=== PATIENT | female | born 1970 | race Native Hawaiian/Other Pacific Islander ===

== ENCOUNTER 2023-01-04 11:19 | Outpatient (CLI) | payer OTHER, SELFPAY ==
--- NOTE | 2023-01-04 11:30 | CRLHL7_ITS ---
For Patients: As a result of the Cures Act, medical imaging exams and procedure reports are released immediately into your electronic medical record. You may view this report before your referring provider. If you have questions, please contact your health care provider. BILATERAL SCREENING MAMMOGRAM WITH COMPUTER-AIDED DETECTION AND TOMOSYNTHESIS TECHNIQUE: CC and MLO views were obtained. These mammographic images have been obtained using full-field digital technique. These mammographic images were interpreted with the benefit of computer-aided detection. Breast Tomosynthesis was used in this interpretation. COMPARISON FILM: 10/11/21, 08/25/20, 09/15/18. FINDINGS: There are scattered areas of fibroglandular density IMPRESSION: There is no radiographic evidence for malignancy. ASSESSMENT: BI-RADS Category 1: Negative RECOMMENDATION: Routine screening mammogram in 1 year. A lay language report of this examination will be provided to the patient. Flavia Barnett M.D. Diagnostic/Breast Radiologist [email or web address] Transcribed: 2:20 p.mLeo phelps/Dictated by: Flavia Barnett MD @ 01/07/2023 8:24:00 AM (Electronically Signed)
== END 2023-01-04 11:20 | disposition home or self-care (01) ==
LOC: MAMMO 11:22
PROVIDERS: PCP Emergency Medicine; Visit Provider Emergency Medicine
DX: Z12.31 Encounter for screening mammogram for malignant neoplasm of breast (principal)
CPT/HCPCS: 77063; 77067

== ENCOUNTER 2024-07-17 10:25 | Outpatient (CLI) | payer OTHER, SELFPAY ==
--- NOTE | 2024-07-17 | CRLHL7_ITS ---
For Patients: As a result of the Century Cures Act, medical imaging exams and procedure reports are released immediately into your electronic medical record. You may view this report before your referring provider. If you have questions, please contact your health care provider. BILATERAL DIGITAL SCREENING MAMMOGRAM WITH COMPUTER-AIDED DETECTION AND TOMOSYNTHESIS CLINICAL HISTORY: Routine screening exam. COMPARISON: 01/04/23, 10/11/21, 08/25/20. TECHNIQUE: Digital mammogram in CC and MLO projections including computer-aided detection (CAD). Tomosynthesis was used in this interpretation. BREAST COMPOSITION: There are scattered areas of fibroglandular density. FINDINGS: RIGHT Breast: Focal asymmetric density within the lateral breast 3 cm from the nipple CC view only. LEFT Breast: No suspicious findings. IMPRESSION: RIGHT breast asymmetry/mass. RECOMMENDATIONS: Additional mammographic views of the RIGHT breast including 3D spot compression CC and 3D true lateral. RIGHT breast ultrasound may also be required. BI-RADS Category 0: Incomplete: Need Additional Imaging Evaluation [facility] will contact the patient for follow-up. A lay language report of this examination will be provided to the patient. Dictated by Trung Austin MD @ 07/17/2024 11:56:55 AM jj/Dictated by: Trung Austin MD @ 07/17/2024 11:56:00 AM (Electronically Signed)
--- OUTSIDE RECORDS SUMMARY | 2024-07-17 10:32 | XMS_ITS | Continuity of Care Document ---
Author Name [facility] Organization [facility] Care Team Providers Care Database Marketing Specialist Name Role Phone [facility] Unavailable Unavailable Problems Combined list of problems from Department of Defense and Veterans Affairs facilities. It does not include entries that were removed or entered in error. Problem Status Onset Date Problem Type Date of Resolution Comments Source Exposure to potentially hazardous substance (SCT [id number]) Active 11/21/19 24 Condition Nov 21, 2023 Entered By: WENDY MACKEY Comment: [facility]ZEQUIEL Documentation Initiative [facility] Shingles Inactive 09/16/19 12 Condition 06/08/2019 Jun 08, 2019 Entered By: HAILE HALE Comment: history of shingles of R face. No occular involvement, but gets annual eye exam due to proximity. Vaccine at 48 y/o. [facility] Bunion Active Condition [facility] Deviated nasal septum Active Condition [facility] Shingles Active Condition Mar 15 Entered By: HAILE HALE Comment: history of prior shingles [facility] Snoring Active Condition [facility] visit for: administrative purpose Inactive Condition [facility] lumbar radiculopathy Active Condition [facility] Physical Examination Inactive Condition [facility] Need For Vaccination Against Influenza Inactive Condition [facility] normal Inactive Condition pt has EDC of August 30, 2007. [facility] visit for: services physical Active Condition DoD Diagnosis: ICD-10-CM J34.2 Deviated nasal septum Active Diagnosis [facility] Diagnosis: ICD-10-CM Z71.89 Other specified counseling Active Diagnosis [facility] Diagnosis: ICD-10-CM Z01.818 Encounter for other preprocedural examination Active Diagnosis [facility] Diagnosis: ICD-10-CM Z13.6 Encounter for screening for cardiovascular disorders Active Diagnosis [facility] Diagnosis: ICD-10-CM E66.3 Overweight Active Diagnosis [facility] Diagnosis: ICD-10-CM R06.83 Snoring Active Diagnosis [facility] Allergies, Adverse Reactions, Alerts Combined list of allergies from Department of Defense and Veterans Affairs facilities. It does not include entries that were removed or entered in error. Substance Category Reaction Severity Reaction type Status Date Reported Comments Source No Known Allergies Drug allergy (disorder) active 11/09/2008 [facility] Immunizations Combined list of available immunizations from the Department of Defense and Veterans Affairs facilities. Immunization Series Date Given Administered By Site Reaction Lot Number CVX Code Drug Laundry Operator Status Comments Source INFLUENZA, INJECTABLE, QUADRIVALENT, PRESERVATIVE FREE 2022 150 complet ed [facility] INFLUENZA, UNSPECIFIED FORMULATION 2022 88 complet ed [facility] INFLUENZA, INJECTABLE, QUADRIVALENT, PRESERVATIVE FREE 2021 150 complet ed [facility] COVID-19 ([employer]), MRNA, LNP-S, PF, 30 MCG/0.3 ML DOSE, AUNG-SUCROSE (AGES 12+ YEARS) 4 2021 217 complet ed PFR; [id number]; 2 [facility] TDAP 2021 115 complet ed [facility] COVID-19 ([employer]), MRNA, LNP-S, PF, 30 MCG/0.3 ML DOSE 3 2020 208 complet ed PFR; [id number]; 2 [facility] INFLUENZA, RECOMBINANT, QUADRIVALENT, INJECTABLE, PRESERVATIVE FREE 2020 185 complet ed [facility] influenza, recombinant, quadrivalent, injectable, preservative free 2020 MICHAELA, () Not Given influenza , recombina nt, quadrival ent,injec table, preservat lisandra free [facility] COVID-19 ([employer]), MRNA, LNP-S, PF, 30 MCG/0.3 ML DOSE 2 2020 208 complet ed PFR; [id number]; 1 [facility] COVID-19 ([employer]), MRNA, LNP-S, PF, 30 MCG/0.3 ML DOSE 1 2020 208 complet ed PFR; [id number]; 1 [facility] INFLUENZA, INJECTABLE, QUADRIVALENT, PRESERVATIVE FREE 2019 150 complet ed [facility] INFLUENZA, INJECTABLE, QUADRIVALENT, PRESERVATIVE FREE 2018 150 complet [facility] INFLUENZA, HIGH DOSE SEASONAL 2018 135 complet [facility] ZOSTER RECOMBINANT 2 2018 187 complet [facility] ZOSTER RECOMBINANT 1 2018 187 complet [facility] INFLUENZA, INJECTABLE, QUADRIVALENT 2017 158 complet [facility] influenza virus vaccine, unspecified formulation 1 2016 Unknown, Provider 88 Transcribed (TRS) complet ed influenza virus vaccine, unspecifi ed formulati on [facility] Influenza, seasonal, injectable 1 2015 141 Transcribed (TRS) complet Influenza , seasonal, injectabl e DoD INFLUENZA, SEASONAL, INJECTABLE, PRESERVATIVE FREE 2015 140 complet [facility] tetanus toxoid, reduced diphtheria toxoid, and acellular pertu is vaccine, adsorbed 3 2015 [id number] [employer] (SKB) complet ed tetanus toxoid, reduced diphtheri a toxoid, and acellular pertussis vaccine, adsorbed [facility] INFLUENZA, SEASONAL, INJECTABLE, PRESERVATIVE FREE 2014 140 complet [facility] influenza virus vaccine, unspecified formulation 1 2014 88 Transcribed (TRS) complet ed influenza virus vaccine, unspecifi ed formulati on [facility] hepatitis B vaccine, adult dosage 3 2014 [id number] [employer] ([place]) complet hepatitis B vaccine, adult dosage DoD hepatitis B vaccine, adult dosage 2 2013 [id number] 43 [employer] ([facility]) complet ed hepatitis B vaccine, adult dosage [facility] influenza virus vaccine, unspecified formulation 1 2013 88 Transcribed (TRS) complet ed influenza virus vaccine, unspecifi ed formulati on [facility] hepatitis B vaccine, adult dosage 0 2013 [id number] 43 [employer] (SK[place]) complet ed hepatitis B vaccine, adult dosage DoD influenza virus vaccine, live, attenuated, for intranasal use 1 2012 111 Transcribed (TRS) complet ed influenza virus vaccine, live, attenuate d, for intranasa l use [facility] influenza virus vaccine, live, attenuated, for intranasal use 1 2011 111 Transcribed (TRS) complet ed influenza virus vaccine, live, attenuate d, for intranasa l use [facility] INFLUENZA, SEASONAL, INJECTABLE 2010 141 complet ed [facility] Influenza, seasonal, injectable 0 2010 141 Other (OTH) complet ed Influenza , seasonal, injectabl e DoD influenza virus vaccine, split virus (incl. purified surface antigen)-reti red CODE 1 2009 Unknown, Provider [id number] [facility] [employer] (CS) complet ed influenza virus vaccine, split virus (incl. purified surface antigen)- retired CODE DoD Novel influenza-H1N 1-09, injectable 1 2008 SOREN MCINTOSH [id number] 127 [employer] [place]. (NOV) complet ed Novel influenza -N2H2-01, injectabl e DoD Novel influenza-H1N 1-09, all formulations 1 2008 [id number] 1A 128 [employer] [place]. (NOV) complet ed Novel influenza -W4W3-57, all formulati ons DoD tuberculin skin test; purified protein derivative solution, intradermal 0 2008 96 Transcribed (TRS) complet ed tuberculi n skin test; purified protein derivativ e solution, intraderm al DoD influenza virus vaccine, live, attenuated, for intranasal use 1 2008 LILIANE CARMEN [id number] 111 [employer] (MED) complet ed influenza virus vaccine, live, attenuate d, for intranasa l use DoD influenza virus vaccine, live, attenuated, for intranasal use 1 2008 UNK 111 [employer] (MED) complet ed influenza virus vaccine, live, attenuate d, for intranasa l use DoD influenza virus vaccine, split virus (incl. purified surface antigen)-reti red CODE 1 2007 UNK 15 Unknown (UNK) comple t ed influenza virus vaccine, split virus (incl. purified surface antigen)- retired CODE DoD influenza virus vaccine, unspecified formulation 1 2007 SOREN MCINTOSH [id number] [facility] (SKB) complet ed influenza virus vaccine, unspecifi ed formulati on DoD influenza virus vaccine, live, attenuated, for intranasal use 1 2007 SOREN MCINTOSH [id number] 111 [employer] (MED) complet ed influenza virus vaccine, live, attenuate d, for intranasa l use DoD influenza virus vaccine, split virus (incl. purified surface antigen)-reti red CODE 2 2006 15 Transcribed (TRS) complet ed influenza virus vaccine, split virus (incl. purified surface antigen)- retired CODE DoD influenza virus vaccine, unspecified formulation 1 2005 UNK 88 [employer]. (MED) complet ed influenza virus vaccine, unspecifi ed formulati on DoD tetanus toxoid, reduced diphtheria toxoid, and acellular pertu is vaccine, adsorbed 1 2005 UNK 115 Sanofi Pasteur ([facility]) complet ed tetanus toxoid, reduced diphtheri a toxoid, and acellular pertussis vaccine, adsorbed DoD influenza virus vaccine, split virus (incl. purified surface antigen)-reti red CODE 1 2002 [id number] 15 [employer] ([employer]) complet ed influenza virus vaccine, split virus (incl. purified surface antigen)- retired CODE DoD influenza virus vaccine, whole virus 1 2002 Unknown, Provider [id number] [employer] (PWJ) complet ed influenza virus vaccine, whole virus DoD tuberculin skin test; purified protein derivative solution, intradermal 1 2001 Unknown, Provider [id number] [facility] (CON) complet ed tuberculi n skin test; purified protein derivativ e solution, intraderm al DoD influenza virus vaccine, whole virus 0 2001 [id number] Sanofi Pasteur ([facility]) complet ed influenza virus vaccine, whole virus DoD measles, mumps and rubella virus vaccine 0 2001 03 () complet ed measles, mumps and rubella virus vaccine DoD tuberculin skin test; purified protein derivative solution, intradermal 1 2000 Unknown, Provider 96 () complet ed tuberculi n skin test; purified protein derivativ e solution, intraderm al DoD hepatitis A vaccine, adult dosage 2 1996 52 () complet ed hepatitis A vaccine, adult dosage DoD hepatitis A vaccine, adult dosage 1 1996 UNK 52 Unknown (UNK) comple t ed hepatitis A vaccine, adult dosage DoD tetanus and diphtheria toxoids, adsorbed, preservative free, for adult use (2 Lf of tetanus toxoid and 2 Lf of diphtheria toxoid) 0 1995 09 () complet ed tetanus and diphtheri a toxoids, adsorbed, preservat lisandra free, for adult use (2 Lf of tetanus toxoid and 2 Lf of diphtheri a toxoid) DoD poliovirus vaccine, inactivated 0 1986 10 () complet ed polioviru s vaccine, inactivat ed DoD Results Combined list of recent chemistry, hematology and other laboratory results from Department of Defense and Veterans Affairs, ranging from 15 months to all on record, depending upon the facility. Order Name Results Value Reference Range Date Interpretation Specimen Comments Source LIVER FUNCTION TESTS BILIRUBIN.T OTAL [MASS/VOLUM E] IN SERUM OR PLASMA 0.5 mg/dL 0.2 - 1.2 02/02 Specimen Type: PLASMA No comment entered. Ordering Provider: BRANDEN ARMENTA Report Released Date/Time: January 28, 2023 03:57 PM Reporting Lab: [facility] [address] Performing Lab: [facility] [address] [facility] LIVER FUNCTION TESTS ALKALINE PHOSPHATASE [ENZYMATIC ACTIVITY/VO LUME] IN SERUM OR PLASMA 117 U/L 40 - 150 02/02 Specimen Type: PLASMA No comment entered. Ordering Provider: BRANDEN ARMENTA Report Released Date/Time: January 28, 2023 03:57 PM Reporting Lab: [facility] [address] Performing Lab: [facility] [address] [facility] LIVER FUNCTION TESTS ALANINE AMINOTRANSF ERASE [ENZYMATIC ACTIVITY/VO LUME] IN SERUM OR PLASMA 23 U/L <55 - 55 02/02 Specimen Type: PLASMA No comment entered. Ordering Provider: BRANDEN ARMENTA Report Released Date/Time: January 28, 2023 03:57 PM Reporting Lab: [facility] [address] Performing Lab: [facility] [address] [facility] LIVER FUNCTION TESTS ASPARTATE AMINOTRANSF ERASE [ENZYMATIC ACTIVITY/VO LUME] IN SERUM OR PLASMA 20 U/L <34 - 34 02/02 Specimen Type: PLASMA No comment entered. Ordering Provider: BRANDEN ARMENTA Report Released Date/Time: January 28, 2023 03:57 PM Reporting Lab: [facility] [address] Performing Lab: [facility] [address] [place] [facility] LIVER FUNCTION TESTS GAMMA GLUTAMYL TRANSFERASE [ENZYMATIC ACTIVITY/VO LUME] IN SERUM OR PLASMA 65 U/L <36 - 36 02/02 H Specimen Type: PLASMA No comment entered. Ordering Provider: BRANDEN ARMENTA Report Released Date/Time: January 28, 2023 03:57 PM Reporting Lab: [facility] [address] Performing Lab: [facility] [address] [place] [facility] BASIC METABOLIC PANEL+MG CREATININE [MASS/VOLUM E] IN SERUM OR PLASMA 0.9 mg/dL 0.5 - 1.0 02/02 Specimen Type: PLASMA No comment entered. Ordering Provider: BRANDEN ARMENTA Report Released Date/Time: January 28, 2023 03:57 PM Reporting Lab: [facility] [address] Performing Lab: [facility] [address] [place] [facility] BASIC METABOLIC PANEL+MG UREA NITROGEN [MASS/VOLUM E] IN SERUM OR PLASMA 14 mg/dL 7 - 20 02/02 Specimen Type: PLASMA No comment entered. Ordering Provider: BRANDEN ARMENTA Report Released Date/Time: January 28, 2023 03:57 PM Reporting Lab: [facility] [address] Performing Lab: [facility] [address] [place] [facility] BASIC METABOLIC PANEL+MG GLUCOSE [MASS/VOLUM E] IN SERUM OR PLASMA 92 mg/dL 70 - 100 02/02 Specimen Type: PLASMA No comment entered. Ordering Provider: BRANDEN ARMENTA Report Released Date/Time: January 28, 2023 03:57 PM Reporting Lab: [facility] [address] Performing Lab: [facility] [address] [place] [facility] BASIC METABOLIC PANEL+MG SODIUM [MOLES/VOLU ME] IN SERUM OR PLASMA 142 mmol/L 136 - 145 02/02 Specimen Type: PLASMA No comment entered. Ordering Provider: BRANDEN ARMENTA Report Released Date/Time: January 28, 2023 03:57 PM Reporting Lab: [facility] [address] Performing Lab: [facility] [address] [place] [facility] BASIC METABOLIC PANEL+MG POTASSIUM [MOLES/VOLU ME] IN SERUM OR PLASMA 3.9 mmol/L 3.5 - 5.1 02/02 Specimen Type: PLASMA No comment entered. Ordering Provider: BRANDEN ARMENTA Report Released Date/Time: January 28, 2023 03:57 PM Reporting Lab: [facility] [address] Performing Lab: [facility] [address] [place] [facility] BASIC METABOLIC PANEL+MG CHLORIDE [MOLES/VOLU ME] IN SERUM OR PLASMA 107 mmol/L 98 - 107 02/02 Specimen Type: PLASMA No comment entered. Ordering Provider: BRANDEN ARMENTA Report Released Date/Time: January 28, 2023 03:57 PM Reporting Lab: [facility] [address] Performing Lab: [facility] [address] [place] [facility] BASIC METABOLIC PANEL+MG CARBON DIOXIDE, TOTAL [MOLES/VOLU ME] IN SERUM OR PLASMA 23 mmol/L 22 - 29 02/02 Specimen Type: PLASMA No comment entered. Ordering Provider: BRANDEN ARMENTA Report Released Date/Time: January 28, 2023 03:57 PM Reporting Lab: [facility] [address] Performing Lab: [facility] [address] [place] [facility] BASIC METABOLIC PANEL+MG CALCIUM [MASS/VOLUM E] IN SERUM OR PLASMA 10.1 mg/dL 8.4 - 10.2 02/02 Specimen Type: PLASMA No comment entered. Ordering Provider: BRANDEN ARMENTA Report Released Date/Time: January 28, 2023 03:57 PM Reporting Lab: [facility] [address] Performing Lab: [facility] [address] [place] [facility] BASIC METABOLIC PANEL+MG MAGNESIUM [MASS/VOLUM E] IN SERUM OR PLASMA 2.1 mg/dL 1.6 - 2.6 02/02 Specimen Type: PLASMA No comment entered. Ordering Provider: BRANDEN ARMENTA Report Released Date/Time: January 28, 2023 03:57 PM Reporting Lab: [facility] [address] Performing Lab: [facility] [address] [place] [facility] BASIC METABOLIC PANEL+MG ANION GAP IN SERUM OR PLASMA 12 mmol/L - 02/02 Specimen Type: PLASMA No comment entered. Ordering Provider: BRANDEN ARMENTA Report Released Date/Time: January 28, 2023 03:57 PM Reporting Lab: [facility] [address] Performing Lab: [facility] [address] [place] [facility] BASIC METABOLIC PANEL+MG GLOMERULAR FILTRATION RATE/1.73 SQ M.PREDICTED [VOLUME RATE/AREA] IN SERUM, PLASMA OR BLOOD BY CREATININE- BASED FORMULA (CKD-EPI 2020) 75 60 02/02 Specimen Type: PLASMA No comment entered. Ordering Provider: BRANDEN ARMENTA Report Released Date/Time: January 28, 2023 03:57 PM Reporting Lab: [facility] [address] Performing Lab: [facility] [address] [place] [facility] HEMOGLOBI N A1C HEMOGLOBIN A1C/HEMOGLO BIN.TOTAL IN BLOOD 5.3 4.0 - 6.0 02/02 Specimen Type: BLOOD Comment: Values obtained from A1C measurement s can vary. For typical A1C assays, a reported value of 7.0 could actually be between 6.7 and 7.3 if measured by a reference method. A reported value of 9.0 could actually be between 8.7 and 9.3. Ref: http://www. ngsp.org/[place] Pdata.asp Ordering Provider: BRANDEN ARMENTA Report Released Date/Time: January 28, 2023 03:57 PM Reporting Lab: [facility] [address] Performing Lab: [facility] [address] [place] [facility] LIPID PANEL,NON -FASTING CHOLESTEROL [MASS/VOLUM E] IN SERUM OR PLASMA 199 mg/dL <199 - 199 02/02 Specimen Type: PLASMA No comment entered. Ordering Provider: BRANDEN ARMENTA Report Released Date/Time: January 28, 2023 03:57 PM Reporting Lab: [facility] [address] Performing Lab: [facility] [address] [place] [facility] LIPID PANEL,NON -FASTING CHOLESTEROL IN HDL [MASS/VOLUM E] IN SERUM OR PLASMA 48 mg/dL 50 02/02 Specimen Type: PLASMA No comment entered. Ordering Provider: BRANDEN ARMENTA Report Released Date/Time: January 28, 2023 03:57 PM Reporting Lab: [facility] [address] Performing Lab: [facility] [address] [place] [facility] LIPID PANEL,NON -FASTING CHOLESTEROL IN LDL [MASS/VOLUM E] IN SERUM OR PLASMA BY CALCULATION 125 mg/dL <99 - 99 02/02 H Specimen Type: PLASMA No comment entered. Ordering Provider: BRANDEN ARMENTA Report Released Date/Time: January 28, 2023 03:57 PM Reporting Lab: [facility] [address] Performing Lab: [facility] [address] [place] [facility] LIPID PANEL,NON -FASTING CHOLESTEROL IN VLDL [MASS/VOLUM E] IN SERUM OR PLASMA BY CALCULATION 26 mg/dL <29 - 29 02/02 Specimen Type: PLASMA No comment entered. Ordering Provider: BRANDEN ARMENTA Report Released Date/Time: January 28, 2023 03:57 PM Reporting Lab: [facility] [address] Performing Lab: [facility] [address] [place] [facility] LIPID PANEL,NON -FASTING CHOLESTEROL NON HDL [MASS/VOLUM E] IN SERUM OR PLASMA 151 mg/dL <129 - 129 02/02 H Specimen Type: PLASMA No comment entered. Ordering Provider: BRANDEN ARMENTA Report Released Date/Time: January 28, 2023 03:57 PM Reporting Lab: [facility] [address] Performing Lab: [facility] [address] [place] [facility] LIPID PANEL,NON -FASTING TRIGLYCERID E [MASS/VOLUM E] IN SERUM OR PLASMA 129 mg/dL <149 - 149 02/02 Specimen Type: PLASMA No comment entered. Ordering Provider: BRANDEN ARMENTA Report Released Date/Time: January 28, 2023 03:57 PM Reporting Lab: [facility] [address] Performing Lab: [facility] [address] [place] [facility] CBC & DIFF LEUKOCYTES [#/VOLUME] IN BLOOD BY AUTOMATED COUNT 6.79 10*3/u L 4.0 - 11.0 02/02 Specimen Type: BLOOD Comment: Automated Differentia l Performed Ordering Provider: BRANDEN ARMENTA Report Released Date/Time: January 28, 2023 03:57 PM Reporting Lab: [facility] [address] Performing Lab: [facility] [address] [place] [facility] CBC & DIFF ERYTHROCYTE S [#/VOLUME] IN BLOOD BY AUTOMATED COUNT 4.64 10*6/u L 4.0 - 5.4 02/02 Specimen Type: BLOOD Comment: Automated Differentia l Performed Ordering Provider: BRANDEN ARMENTA Report Released Date/Time: January 28, 2023 03:57 PM Reporting Lab: [facility] [address] Performing Lab: [facility] [address] [place] [facility] CBC & DIFF HEMOGLOBIN [MASS/VOLUM E] IN BLOOD 14.0 g/dL 11.5 - 16 02/02 Specimen Type: BLOOD Comment: Automated Differentia l Performed Ordering Provider: BRANDEN ARMENTA Report Released Date/Time: January 28, 2023 03:57 PM Reporting Lab: [facility] [address] Performing Lab: [facility] [address] [place] [facility] CBC & DIFF HEMATOCRIT [VOLUME FRACTION] OF BLOOD BY AUTOMATED COUNT 42.0 34.5 - 48 02/02 Specimen Type: BLOOD Comment: Automated Differentia l Performed Ordering Provider: BRANDEN ARMENTA Report Released Date/Time: January 28, 2023 03:57 PM Reporting Lab: [facility] [address] Performing Lab: [facility] [address] [place] [facility] CBC & DIFF MCV [ENTITIC VOLUME] BY AUTOMATED COUNT 90.5 fL 80 - 100 02/02 Specimen Type: BLOOD Comment: Automated Differentia l Performed Ordering Provider: BRANDEN ARMENTA Report Released Date/Time: January 28, 2023 03:57 PM Reporting Lab: [facility] [address] Performing Lab: [facility] [address] [place] [facility] CBC & DIFF MCH [ENTITIC MASS] BY AUTOMATED COUNT 30.2 pg 27 - 33 02/02 Specimen Type: BLOOD Comment: Automated Differentia l Performed Ordering Provider: BRANDEN ARMENTA Report Released Date/Time: January 28, 2023 03:57 PM Reporting Lab: [facility] [address] Performing Lab: [facility] [address] [place] [facility] CBC & DIFF MCHC [MASS/VOLUM E] BY AUTOMATED COUNT 33.3 g/dL 32.0 - 37.5 02/02 Specimen Type: BLOOD Comment: Automated Differentia l Performed Ordering Provider: BRANDEN ARMENTA Report Released Date/Time: January 28, 2023 03:57 PM Reporting Lab: [facility] [address] Performing Lab: [facility] [address] [place] [facility] CBC & DIFF PLATELETS [#/VOLUME] IN BLOOD BY AUTOMATED COUNT 264 10*3/u L 150 - 400 02/02 Specimen Type: BLOOD Comment: Automated Differentia l Performed Ordering Provider: BRANDEN ARMENTA Report Released Date/Time: January 28, 2023 03:57 PM Reporting Lab: [facility] [address] Performing Lab: [facility] [address] [place] [facility] CBC & DIFF PLATELET MEAN VOLUME [ENTITIC VOLUME] IN BLOOD BY AUTOMATED COUNT 9.5 fL 7.4 - 10.4 02/02 Specimen Type: BLOOD Comment: Automated Differentia l Performed Ordering Provider: BRANDEN ARMENTA Report Released Date/Time: January 28, 2023 03:57 PM Reporting Lab: [facility] [address] Performing Lab: [facility] [address] [place] [facility] CBC & DIFF NEUTROPHILS /100 LEUKOCYTES IN BLOOD BY MANUAL COUNT 50.6 40.0 - 80.0 02/02 Specimen Type: BLOOD Comment: Automated Differentia l Performed Ordering Provider: BRANDEN ARMENTA Report Released Date/Time: January 28, 2023 03:57 PM Reporting Lab: [facility] [address] Performing Lab: [facility] [address] [place] [facility] CBC & DIFF LYMPHOCYTES /100 LEUKOCYTES IN BLOOD BY MANUAL COUNT 33.9 15.0 - 45.0 02/02 Specimen Type: BLOOD Comment: Automated Differentia l Performed Ordering Provider: BRANDEN ARMENTA Report Released Date/Time: January 28, 2023 03:57 PM Reporting Lab: [facility] [address] Performing Lab: [facility] [address] [place] [facility] CBC & DIFF MONOCYTES/1 00 LEUKOCYTES IN BLOOD BY AUTOMATED COUNT 6.0 2.0 - 12.0 02/02 Specimen Type: BLOOD Comment: Automated Differentia l Performed Ordering Provider: BRANDEN ARMENTA Report Released Date/Time: January 28, 2023 03:57 PM Reporting Lab: [facility] [address] Performing Lab: [facility] [address] [place] [facility] CBC & DIFF EOSINOPHILS /100 LEUKOCYTES IN BLOOD BY AUTOMATED COUNT 8.5 0.0 - 6.0 02/02 H Specimen Type: BLOOD Comment: Automated Differentia l Performed Ordering Provider: BRANDEN ARMENTA Report Released Date/Time: January 28, 2023 03:57 PM Reporting Lab: [facility] [address] Performing Lab: [facility] [address] [place] [facility] CBC & DIFF BASOPHILS/1 00 LEUKOCYTES IN BLOOD BY MANUAL COUNT 0.9 0.0 - 2.0 02/02 Specimen Type: BLOOD Comment: Automated Differentia l Performed Ordering Provider: BRANDEN ARMENTA Report Released Date/Time: January 28, 2023 03:57 PM Reporting Lab: [facility] [address] Performing Lab: [facility] [address] [place] [facility] CBC & DIFF ERYTHROCYTE DISTRIBUTIO N WIDTH [RATIO] BY AUTOMATED COUNT 12.3 11.5 - 14.5 02/02 Specimen Type: BLOOD Comment: Automated Differentia l Performed Ordering Provider: BRANDEN ARMENTA Report Released Date/Time: January 28, 2023 03:57 PM Reporting Lab: [facility] [address] Performing Lab: [facility] [address] [place] [facility] CBC & DIFF LYMPHOCYTES [#/VOLUME] IN BLOOD BY AUTOMATED COUNT 2.30 10*3/u L 1.0 - 4.0 02/02 Specimen Type: BLOOD Comment: Automated Differentia l Performed Ordering Provider: BRANDEN ARMENTA Report Released Date/Time: January 28, 2023 03:57 PM Reporting Lab: [facility] [address] Performing Lab: [facility] [address] [place] [facility] CBC & DIFF MONOCYTES [#/VOLUME] IN BLOOD BY AUTOMATED COUNT 0.41 10*3/u L 0.1 - 1.0 02/02 Specimen Type: BLOOD Comment: Automated Differentia l Performed Ordering Provider: BRANDEN ARMENTA Report Released Date/Time: January 28, 2023 03:57 PM Reporting Lab: [facility] [address] Performing Lab: [facility] [address] [place] [facility] CBC & DIFF NEUTROPHILS [#/VOLUME] IN BLOOD BY AUTOMATED COUNT 3.43 10*3/u L 2.0 - 7.7 02/02 Specimen Type: BLOOD Comment: Automated Differentia l Performed Ordering Provider: BRANDEN ARMENTA Report Released Date/Time: January 28, 2023 03:57 PM Reporting Lab: [facility] [address] Performing Lab: [facility] [address] [place] [facility] CBC & DIFF EOSINOPHILS [#/VOLUME] IN BLOOD BY AUTOMATED COUNT 0.58 10*3/u L 0 - 0.5 02/02 H Specimen Type: BLOOD Comment: Automated Differentia l Performed Ordering Provider: BRANDEN ARMENTA Report Released Date/Time: January 28, 2023 03:57 PM Reporting Lab: [facility] [address] Performing Lab: [facility] [address] [facility] CBC & DIFF BASOPHILS [#/VOLUME] IN BLOOD BY AUTOMATED COUNT 0.06 10*3/u L 0 - 0.2 02/02 Specimen Type: BLOOD Comment: Automated Differentia l Performed Ordering Provider: BRANDEN ARMENTA Report Released Date/Time: January 28, 2023 03:57 PM Reporting Lab: [facility] [address] Performing Lab: [facility] [address] [facility] CBC & DIFF IG(META,MYE LO,PRO) 0.1 02/02 Specimen Type: BLOOD Comment: Automated Differentia l Performed Ordering Provider: BRANDEN ARMENTA Report Released Date/Time: January 28, 2023 03:57 PM Reporting Lab: [facility] [address] Performing Lab: [facility] [address] [place] [facility] CBC & DIFF IMMATURE GRANULOCYTE S [PRESENCE] IN BLOOD BY AUTOMATED COUNT 0.01 10*3/u L 0 - 0.1 02/02 Specimen Type: BLOOD Comment: Automated Differentia l Performed Ordering Provider: BRANDEN ARMENTA Report Released Date/Time: January 28, 2023 03:57 PM Reporting Lab: [facility] [address] Performing Lab: [facility] [address] [place] [facility] CBC & DIFF LEUKOCYTES [#/VOLUME] IN BLOOD BY AUTOMATED COUNT 5.76 10*3/u L 4.0 - 11.0 06/28 Specimen Type: BLOOD Comment: Automated Differentia l Performed Ordering Provider: PAM MCKENZIE Report Released Date/Time: Jun 25, 2023 01:19 PM Reporting Lab: [facility] [address] Performing Lab: [facility] [address] [place] [facility] CBC & DIFF ERYTHROCYTE S [#/VOLUME] IN BLOOD BY AUTOMATED COUNT 4.46 10*6/u L 4.0 - 5.4 06/28 Specimen Type: BLOOD Comment: Automated Differentia l Performed Ordering Provider: PAM MCKENZIE Report Released Date/Time: Jun 25, 2023 01:19 PM Reporting Lab: [facility] [address] Performing Lab: [facility] [address] [place] [facility] CBC & DIFF HEMOGLOBIN [MASS/VOLUM E] IN BLOOD 13.7 g/dL 11.5 - 16 06/28 Specimen Type: BLOOD Comment: Automated Differentia l Performed Ordering Provider: PAM MCKENZIE Report Released Date/Time: Jun 25, 2023 01:19 PM Reporting Lab: [facility] [address] Performing Lab: [facility] [address] [place] [facility] CBC & DIFF HEMATOCRIT [VOLUME FRACTION] OF BLOOD BY AUTOMATED COUNT 40.5 34.5 - 48 06/28 Specimen Type: BLOOD Comment: Automated Differentia l Performed Ordering Provider: PAM MCKENZIE Report Released Date/Time: Jun 25, 2023 01:19 PM Reporting Lab: [facility] [address] Performing Lab: [facility] [address] [place] [facility] CBC & DIFF MCV [ENTITIC VOLUME] BY AUTOMATED COUNT 90.8 fL 80 - 100 06/28 Specimen Type: BLOOD Comment: Automated Differentia l Performed Ordering Provider: PAM MCKENZIE Report Released Date/Time: Jun 25, 2023 01:19 PM Reporting Lab: [facility] [address] Performing Lab: [facility] [address] [place] [facility] CBC & DIFF MCH [ENTITIC MASS] BY AUTOMATED COUNT 30.7 pg 27 - 33 06/28 Specimen Type: BLOOD Comment: Automated Differentia l Performed Ordering Provider: PAM MCKENZIE Report Released Date/Time: Jun 25, 2023 01:19 PM Reporting Lab: [facility] [address] Performing Lab: [facility] [address] [place] [facility] CBC & DIFF MCHC [MASS/VOLUM E] BY AUTOMATED COUNT 33.8 g/dL 32.0 - 37.5 06/28 Specimen Type: BLOOD Comment: Automated Differentia l Performed Ordering Provider: PAM MCKENZIE Report Released Date/Time: Jun 25, 2023 01:19 PM Reporting Lab: [facility] [address] Performing Lab: [facility] [address] [place] [facility] CBC & DIFF PLATELETS [#/VOLUME] IN BLOOD BY AUTOMATED COUNT 259 10*3/u L 150 - 400 06/28 Specimen Type: BLOOD Comment: Automated Differentia l Performed Ordering Provider: PAM MCKENZIE Report Released Date/Time: Jun 25, 2023 01:19 PM Reporting Lab: [facility] [address] Performing Lab: [facility] [address] [place] [facility] CBC & DIFF PLATELET MEAN VOLUME [ENTITIC VOLUME] IN BLOOD BY AUTOMATED COUNT 9.5 fL 7.4 - 10.4 06/28 Specimen Type: BLOOD Comment: Automated Differentia l Performed Ordering Provider: PAM MCKENZIE Report Released Date/Time: Jun 25, 2023 01:19 PM Reporting Lab: [facility] [address] Performing Lab: [facility] [address] [place] [facility] CBC & DIFF NEUTROPHILS /100 LEUKOCYTES IN BLOOD BY MANUAL COUNT 60.2 40.0 - 80.0 10/13 /2023 Specimen Type: BLOOD Comment: Automated Differentia l Performed Ordering Provider: PAM MCKENZIE Report Released Date/Time: Jun 25, 2023 01:19 PM Reporting Lab: [facility] [address] Performing Lab: [facility] [address] [place] [facility] CBC & DIFF LYMPHOCYTES /100 LEUKOCYTES IN BLOOD BY MANUAL COUNT 31.3 15.0 - 45.0 06/28 Specimen Type: BLOOD Comment: Automated Differentia l Performed Ordering Provider: PAM MCKENZIE Report Released Date/Time: Jun 25, 2023 01:19 PM Reporting Lab: [facility] [address] Performing Lab: [facility] [address] [place] [facility] CBC & DIFF MONOCYTES/1 00 LEUKOCYTES IN BLOOD BY AUTOMATED COUNT 5.2 2.0 - 12.0 06/28 Specimen Type: BLOOD Comment: Automated Differentia l Performed Ordering Provider: PAM MCKENZIE Report Released Date/Time: Jun 25, 2023 01:19 PM Reporting Lab: [facility] [address] Performing Lab: [facility] [address] [place] [facility] CBC & DIFF EOSINOPHILS /100 LEUKOCYTES IN BLOOD BY AUTOMATED COUNT 2.3 0.0 - 6.0 06/28 Specimen Type: BLOOD Comment: Automated Differentia l Performed Ordering Provider: PAM MCKENZIE Report Released Date/Time: Jun 25, 2023 01:19 PM Reporting Lab: [facility] [address] Performing Lab: [facility] [address] [place] [facility] CBC & DIFF BASOPHILS/1 00 LEUKOCYTES IN BLOOD BY MANUAL COUNT 1.0 0.0 - 2.0 06/28 Specimen Type: BLOOD Comment: Automated Differentia l Performed Ordering Provider: PAM MCKENZIE Report Released Date/Time: Jun 25, 2023 01:19 PM Reporting Lab: [facility] [address] Performing Lab: [facility] [address] [place] [facility] CBC & DIFF ERYTHROCYTE DISTRIBUTIO N WIDTH [RATIO] BY AUTOMATED COUNT 12.2 11.5 - 14.5 06/28 Specimen Type: BLOOD Comment: Automated Differentia l Performed Ordering Provider: PAM MCKENZIE Report Released Date/Time: Jun 25, 2023 01:19 PM Reporting Lab: [facility] [address] Performing Lab: [facility] [address] [place] [facility] CBC & DIFF LYMPHOCYTES [#/VOLUME] IN BLOOD BY AUTOMATED COUNT 1.80 10*3/u L 1.0 - 4.0 06/28 Specimen Type: BLOOD Comment: Automated Differentia l Performed Ordering Provider: PAM MCKENZIE Report Released Date/Time: Jun 25, 2023 01:19 PM Reporting Lab: [facility] [address] Performing Lab: [facility] [address] [place] [facility] CBC & DIFF MONOCYTES [#/VOLUME] IN BLOOD BY AUTOMATED COUNT 0.30 10*3/u L 0.1 - 1.0 06/28 Specimen Type: BLOOD Comment: Automated Differentia l Performed Ordering Provider: PAM MCKENZIE Report Released Date/Time: Jun 25, 2023 01:19 PM Reporting Lab: [facility] [address] Performing Lab: [facility] [address] [place] [facility] CBC & DIFF NEUTROPHILS [#/VOLUME] IN BLOOD BY AUTOMATED COUNT 3.47 10*3/u L 2.0 - 7.7 06/28 Specimen Type: BLOOD Comment: Automated Differentia l Performed Ordering Provider: PAM MCKENZIE Report Released Date/Time: Jun 25, 2023 01:19 PM Reporting Lab: [facility] [address] Performing Lab: [facility] [address] [place] [facility] CBC & DIFF EOSINOPHILS [#/VOLUME] IN BLOOD BY AUTOMATED COUNT 0.13 10*3/u L 0 - 0.5 06/28 Specimen Type: BLOOD Comment: Automated Differentia l Performed Ordering Provider: PAM MCKENZIE Report Released Date/Time: Jun 25, 2023 01:19 PM Reporting Lab: [facility] [address] Performing Lab: [facility] [address] [place] [facility] CBC & DIFF BASOPHILS [#/VOLUME] IN BLOOD BY AUTOMATED COUNT 0.06 10*3/u L 0 - 0.2 06/28 Specimen Type: BLOOD Comment: Automated Differentia l Performed Ordering Provider: PAM MCKENZIE Report Released Date/Time: Jun 25, 2023 01:19 PM Reporting Lab: [facility] [address] Performing Lab: [facility] [address] [place] [facility] CBC & DIFF IG(META,MYE LO,PRO) 0.0 06/28 Specimen Type: BLOOD Comment: Automated Differentia l Performed Ordering Provider: PAM MCKENZIE Report Released Date/Time: Jun 25, 2023 01:19 PM Reporting Lab: [facility] [address] Performing Lab: [facility] [address] [place] [facility] CBC & DIFF IMMATURE GRANULOCYTE S [PRESENCE] IN BLOOD BY AUTOMATED COUNT 0.00 10*3/u L 0 - 0.1 06/28 Specimen Type: BLOOD Comment: Automated Differentia l Performed Ordering Provider: PAM MCKENZIE Report Released Date/Time: Jun 25, 2023 01:19 PM Reporting Lab: [facility] [address] Performing Lab: [facility] [address] [place] [facility] PROTHROMB IN TIME/INR INR IN PLATELET POOR PLASMA BY COAGULATION ASSAY 1.0 0.8 - 1.1 06/28 Specimen Type: PLASMA Comment: Automated Differentia l Performed Ordering Provider: PAM MCKENZIE Report Released Date/Time: Jun 25, 2023 01:19 PM Reporting Lab: [facility] [address] Performing Lab: [facility] [address] [place] [facility] PROTHROMB IN TIME/INR PROTHROMBIN TIME (PT) 11.6 s 9.4 - 12.5 06/28 Specimen Type: PLASMA Comment: Automated Differentia l Performed Ordering Provider: PAM MCKENZIE Report Released Date/Time: Jun 25, 2023 01:19 PM Reporting Lab: [facility] [address] Performing Lab: [facility] [address] [place] [facility] ACT PART THROMBO TIME APTT IN PLATELET POOR PLASMA BY COAGULATION ASSAY 29.2 s 25.1 - 36.5 06/28 Specimen Type: PLASMA Comment: Automated Differentia l Performed Ordering Provider: PAM MCKENZIE Report Released Date/Time: Jun 25, 2023 01:19 PM Reporting Lab: [facility] [address] Performing Lab: [facility] [address] [place] [facility] BASIC METABOLIC PANEL+MG CREATININE [MASS/VOLUM E] IN SERUM OR PLASMA 0.8 mg/dL 0.5 - 1.0 06/28 Specimen Type: PLASMA No comment entered. Ordering Provider: PAM MCKENZIE Report Released Date/Time: Jun 25, 2023 01:19 PM Reporting Lab: [facility] [address] Performing Lab: [facility] [address] [place] [facility] BASIC METABOLIC PANEL+MG UREA NITROGEN [MASS/VOLUM E] IN SERUM OR PLASMA 22 mg/dL 7 - 20 06/28 H Specimen Type: PLASMA No comment entered. Ordering Provider: PAM MCKENZIE Report Released Date/Time: Jun 25, 2023 01:19 PM Reporting Lab: [facility] [address] Performing Lab: [facility] [address] [place] [facility] BASIC METABOLIC PANEL+MG GLUCOSE [MASS/VOLUM E] IN SERUM OR PLASMA 95 mg/dL 70 - 100 06/28 Specimen Type: PLASMA No comment entered. Ordering Provider: PAM MCKENZIE Report Released Date/Time: Jun 25, 2023 01:19 PM Reporting Lab: [facility] [address] Performing Lab: [facility] [address] [place] [facility] BASIC METABOLIC PANEL+MG SODIUM [MOLES/VOLU ME] IN SERUM OR PLASMA 141 mmol/L 136 - 145 06/28 Specimen Type: PLASMA No comment entered. Ordering Provider: PAM MCKENZIE Report Released Date/Time: Jun 25, 2023 01:19 PM Reporting Lab: [facility] [address] Performing Lab: [facility] [address] [place] [facility] BASIC METABOLIC PANEL+MG POTASSIUM [MOLES/VOLU ME] IN SERUM OR PLASMA 3.9 mmol/L 3.5 - 5.1 06/28 Specimen Type: PLASMA No comment entered. Ordering Provider: PAM MCKENZIE Report Released Date/Time: Jun 25, 2023 01:19 PM Reporting Lab: [facility] [address] Performing Lab: [facility] [address] [place] [facility] BASIC METABOLIC PANEL+MG CHLORIDE [MOLES/VOLU ME] IN SERUM OR PLASMA 107 mmol/L 98 - 107 06/28 Specimen Type: PLASMA No comment entered. Ordering Provider: PAM MCKENZIE Report Released Date/Time: Jun 25, 2023 01:19 PM Reporting Lab: [facility] [address] Performing Lab: [facility] [address] [place] [facility] BASIC METABOLIC PANEL+MG CARBON DIOXIDE, TOTAL [MOLES/VOLU ME] IN SERUM OR PLASMA 24 mmol/L 22 - 29 06/28 Specimen Type: PLASMA No comment entered. Ordering Provider: PAM MCKENZIE Report Released Date/Time: Jun 25, 2023 01:19 PM Reporting Lab: [facility] [address] Performing Lab: [facility] [address] [place] [facility] BASIC METABOLIC PANEL+MG CALCIUM [MASS/VOLUM E] IN SERUM OR PLASMA 9.4 mg/dL 8.4 - 10.2 06/28 Specimen Type: PLASMA No comment entered. Ordering Provider: APM MCKENZIE Report Released Date/Time: Jun 25, 2023 01:19 PM Reporting Lab: [facility] [address] Performing Lab: [facility] [address] [place] [facility] BASIC METABOLIC PANEL+MG MAGNESIUM [MASS/VOLUM E] IN SERUM OR PLASMA 2.2 mg/dL 1.6 - 2.6 06/28 Specimen Type: PLASMA No comment entered. Ordering Provider: PAM MCKENZIE Report Released Date/Time: Jun 25, 2023 01:19 PM Reporting Lab: [facility] [address] Performing Lab: [facility] [address] [place] [facility] BASIC METABOLIC PANEL+MG ANION GAP IN SERUM OR PLASMA 10 mmol/L 5 - 15 06/28 Specimen Type: PLASMA No comment entered. Ordering Provider: PAM MCKENZIE Report Released Date/Time: Jun 25, 2023 01:19 PM Reporting Lab: [facility] [address] Performing Lab: [facility] [address] [place] [facility] BASIC METABOLIC PANEL+MG GLOMERULAR FILTRATION RATE/1.73 SQ M.PREDICTED [VOLUME RATE/AREA] IN SERUM, PLASMA OR BLOOD BY CREATININE- BASED FORMULA (CKD-EPI 2020) 88 60 06/28 Specimen Type: PLASMA No comment entered. Ordering Provider: PAM MCKENZIE Report Released Date/Time: Jun 25, 2023 01:19 PM Reporting Lab: [facility] [address] Performing Lab: [facility] [address] [place] [facility] LIPID PANEL,NON -FASTING CHOLESTEROL [MASS/VOLUM E] IN SERUM OR PLASMA 160 mg/dL <199 - 199 01/28 Specimen Type: PLASMA No comment entered. Ordering Provider: BRANDEN ARMENTA Report Released Date/Time: January 28, 2023 03:57 PM Reporting Lab: [facility] [address] Performing Lab: [facility] [address] [place] [facility] LIPID PANEL,NON -FASTING CHOLESTEROL IN HDL [MASS/VOLUM E] IN SERUM OR PLASMA 61 mg/dL 50 01/28 Specimen Type: PLASMA No comment entered. Ordering Provider: BRANDEN ARMENTA Report Released Date/Time: January 28, 2023 03:57 PM Reporting Lab: [facility] [address] Performing Lab: [facility] [address] [place] [facility] LIPID PANEL,NON -FASTING CHOLESTEROL IN LDL [MASS/VOLUM E] IN SERUM OR PLASMA BY CALCULATION 83 mg/dL <99 - 99 01/28 Specimen Type: PLASMA No comment entered. Ordering Provider: BRANDEN ARMENTA Report Released Date/Time: January 28, 2023 03:57 PM Reporting Lab: [facility] [address] Performing Lab: [facility] [address] [place] [facility] LIPID PANEL,NON -FASTING CHOLESTEROL IN VLDL [MASS/VOLUM E] IN SERUM OR PLASMA BY CALCULATION 16 mg/dL <29 - 29 01/28 Specimen Type: PLASMA No comment entered. Ordering Provider: BRANDEN ARMENTA Report Released Date/Time: January 28, 2023 03:57 PM Reporting Lab: [facility] [address] Performing Lab: [facility] [address] [place] [facility] LIPID PANEL,NON -FASTING CHOLESTEROL NON HDL [MASS/VOLUM E] IN SERUM OR PLASMA 99 mg/dL <129 - 129 01/28 Specimen Type: PLASMA No comment entered. Ordering Provider: BRANDEN ARMENTA Report Released Date/Time: January 28, 2023 03:57 PM Reporting Lab: [facility] [address] Performing Lab: [facility] [address] [place] [facility] LIPID PANEL,NON -FASTING TRIGLYCERID E [MASS/VOLUM E] IN SERUM OR PLASMA 81 mg/dL <149 - 149 01/28 Specimen Type: PLASMA No comment entered. Ordering Provider: BRANDEN ARMENTA Report Released Date/Time: January 28, 2023 03:57 PM Reporting Lab: [facility] [address] Performing Lab: [facility] [address] [place] [facility] Vital Signs Combined list of inpatient and outpatient Vital Signs from Department of Defense and Veterans Affairs, ranging from 12 months to all on record, depending upon the facility. Vital Sign Value Date Comments Source SYSTOLIC BLOOD PRESSURE 126 02/03/2024 08:14:26 [facility] DIASTOLIC BLOOD PRESSURE 85 02/03/2024 08:14:26 [facility] PULSE OXIMETRY 99 02/03/2024 08:14:26 [facility] WEIGHT 172 02/03/2024 08:14:26 [facility] BMI 28kg/m2 02/03/2024 08:14:26 [facility] PAIN 0 02/03/2024 08:14:26 [facility] HEIGHT 66 02/03/2024 08:14:26 [facility] PULSE 66 02/03/2024 08:14:26 [facility] RESPIRATION 14 02/03/2024 08:14:26 [facility] Encounters Combined list of: 1) Encounters from Department of Veterans Affairs facilities going back up to thelast 18 months. 2) Encounters from the Department of Defense facilities going back up to 280 months. Location Location Details Encounter Type Encounter Number Reason For Visit Attending Provider ADM Date DC Date Status Disposition Source [facility](Ph ysical Exam Daniele ) OUTPATIENT [id number] RCPHA REVIEW LUIS A RUTH 08/11 Released w/o Limitations [facility]( Physica l Exam Diloren zo) [facility](Im munizatio n DI) OUTPATIENT [id number] SANDRA SPENCE 11/09 Released w/o Limitations [facility]( Immuniz ation DI) [facility](Ph ysical Exam Daniele ) OUTPATIENT [id number] [facility] [place] 11/09 Released w/o Limitations [facility]( Physica l Exam Diloren zo) [facility](Im munizatio n DI) OUTPATIENT [id number] SANDRA SPENCE 11/16 Released w/o Limitations [facility]( Immuniz ation DI) [facility](Ph ysical Exam Daniele ) OUTPATIENT [id number] af CL Rolon 12/09 Released w/o Limitations [facility]( Physica l Exam Diloren zo) [facility](Im munizatio n DI) OUTPATIENT [id number] LETY FRAIRE 12/09 Released w/o Limitations [facility]( Immuniz ation DI) [facility](Al lergy Daniele ) OUTPATIENT [id number] flu PURNIMALETY 07/04 Released w/o Limitations [facility]( Allergy Diloren zo) [facility](Op erational Medicine MG) OUTPATIENT [id number] pha henri DORIAN PRICE 04/26 Released w/o Limitations [facility]( Operati onal Medicin e MG) [facility](Tevin lling PHA) OUTPATIENT [id number] [facility] Res PHA SANDRA JEFFREY Nuvia 04/04 Released w/o Limitations [facility]( Polo PHA) [facility] Med Cl Team C_Non-AD) OUTPATIENT [id number] Isreal estrada. for vaccshanti mccarty JAKE BILLS 04/08 Released w/o Limitations [facility]( Family Med Cl Team C_Non-A D) [facility](Lenny manning MG) OUTPATIENT [id number] Pt needs to request Profile LAUREISAIAH VAZQUEZ 02/27 Released with Work/Duty Limitations [facility]( Rock s MG) [facility](Im munizatio n DI) OUTPATIENT [id number] Notes Entered by: Melida BOLAÑOS 20 Apr 2013 1517 ------- ------- ------- ------- -- Update ISHMAEL BOTELLO 04/20 Released w/o Limitations [facility]( Immuniz ation DI) [facility](Tevin lling PHA) OUTPATIENT [id number] PHA RESERVE KHRIS VOGEL 04/22 Released w/o Limitations [facility]( [place] PHA) [facility] OUTPATIENT [id number] Notes Entered by: YOHANNES GUERRERO 26 Apr 2014 0851 ------- ------- ------- ------- -- HAIDER WALLACE 04/26 Released w/o Limitations [facility]) [facility] OUTPATIENT [id number] Notes Entered by: DOUG KRAFT 20 Apr 2015 1503 ------- ------- ------- ------- -- SOFIE CLAROS 04/20 Released w/o Limitations [facility]) [facility](Base Operation al Medicine Cell) OUTPATIENT [id number] [facility]/853 [id number] GIANNA BECKER 05/03 Released w/o Limitations [facility](Bas e Operati onal Medicin e Cell) [facility] OFFICE O/P EST HI 40-54 MIN [id number] Diagnos is: ICD-10- CM R06.83 Snoring
Demetrius CLIFTON 01/28 [facility] Outpatient Encounter [id number] 03/11 [facility] Outpatient Encounter [id number] Diagnos is: ICD-10- CM E66.3 Overwei ght<br/ > VANESSA WILLSON 03/20 [facility] Outpatient Encounter [id number] 05/24 [facility] OFFICE O/P EST SF 10-19 MIN [id number] Diagnos is: ICD-10- CM J34.2 Deviate d nasal septum< br/> PAM MCKENZIE 06/21 [facility] Outpatient Encounter [id number] 06/21 [facility] ELECTROCAR DIOGRAM COMPLETE [id number] Diagnos is: ICD-10- CM Z13.6 Encount er for screeni ng for cardiov ascular disorde rs
KATYA GARCIA 06/28 [facility] OFFICE O/P EST MOD 30-39 MIN [id number] Diagnos is: ICD-10- CM Z01.818 Encount er for other preproc edural examina tion
EDI CALABRESE 06/28 [facility] PT EDUCATION NOC INDIVID [id number] Diagnos is: ICD-10- CM Z71.89 Other specifi ed dormitory counselor ing<br/ > JW DICK ATA V 06/28 [facility] Outpatient Encounter [id number] 07/01 [facility] Outpatient Encounter [id number] JOSE MONROY ZENY P 07/01 [facility] Outpatient Encounter [id number] 08/06 [facility] Outpatient Encounter [id number] 02/01 [facility] OFFICE O/P EST MOD 30 MIN [id number] Diagnos is: ICD-10- CM J34.2 Deviate d nasal septum< br/> OTTO KERR 02/02 [facility] Procedures Combined list of: 1) Procedures from Department of Veterans Affairs facilities going back up to thelast 18 months, not all [place] non-surgical procedures are included; 2) All procedures from the Department of Defense facilities. Procedure Procedure Type Code Date Perfomer Comments Sourc e ONLINE ASSESS &MANAG SERV PROVIDE,A QUAL NONPHYS HCP TO AN ESTABLISHED PAT/GUARDIAN,NOT ORIGINAT FR RELAT ASSESS &MANAG SERV PROVIDE W/IN THE PREV 7 DAYS,USE THE [employer] [facility] 05/03/2017 [facility] POSTOPERATIVE FOLLOW-UP VISIT, NORMALLY INCLUDED IN THE SURGICAL PACKAGE, INDICATE THAT EVALUATION & MANAGEMENT SERVICE WAS PERFORMED DURING A POSTOPERATIVE PERIOD REASON RELATED ORIGINAL PROCEDURE 02/15/2004 [facility] CERVICAL OR VAGINAL CANCER SCREENING; PELVIC AND CLINICAL BREAST EXAMINATION 02/15/2004 [facility] REPAIR, INTERMEDIATE, WOUNDS OF SCALP, AXILLAE, TRUNK AND/OR EXTREMITIES (EXCLUDING HANDS AND FEET); 2.5 CM OR LESS 02/04/2004 [facility] INJECTION OF RH IMMUNE GLOBULIN 02/08/2003 [facility] REPAIR OF OTHER CURRENT OBSTETRIC LACERATION 02/08/2003 [facility] ECHOCARDIOGRAPHY, , CARDIOVASCULAR SYSTEM, REAL TIME WITH IMAGE DOCUMENTATION (2D) WITH OR WITHOUT M-MODE RECORDING; 02/04/2003 [facility] UNLISTED PROCEDURE, MATERNITY CARE AND DELIVERY 01/22/2003 [facility] ECHOCARDIOGRAPHY, , CARDIOVASCULAR SYSTEM, REAL TIME WITH IMAGE DOCUMENTATION (2D) WITH OR WITHOUT M-MODE RECORDING; 01/11/2003 [facility] UNLISTED CHEMISTRY PROCEDURE 01/01/2003 [facility] ECHOCARDIOGRAPHY, , CARDIOVASCULAR SYSTEM, REAL TIME WITH IMAGE DOCUMENTATION (2D) WITH OR WITHOUT M-MODE RECORDING; 10/26/2002 [facility] ECHOCARDIOGRAPHY, , CARDIOVASCULAR SYSTEM, REAL TIME WITH IMAGE DOCUMENTATION (2D) WITH OR WITHOUT M-MODE RECORDING; 09/28/2002 [facility] CERVICAL OR VAGINAL CANCER SCREENING; PELVIC AND CLINICAL BREAST EXAMINATION 07/02/2002 [facility] CYTOPATHOLOGY, SMEARS, CERVICAL OR VAGINAL, UP TO THREE SMEARS; SCREENING BY BUILDING CONSTRUCTION ENGINEER UNDER PHYSICIAN SUPERVISION 09/10/2001 [facility] VACCINATION AGAINST RUBELLA 07/28/2001 [facility] EPISIOTOMY 07/28/2001 [facility] OTHER MONITORING 07/28/2001 [facility] NON-STRESS TEST 07/25/2001 [facility] CEREBRAL VASCULAR FLOW 07/18/2001 [facility] ECHOCARDIOGRAPHY, , CARDIOVASCULAR SYSTEM, REAL TIME WITH IMAGE DOCUMENTATION (2D) WITH OR WITHOUT M-MODE RECORDING; 07/17/2001 [facility] NON-STRESS TEST 07/15/2001 [facility] NON-STRESS TEST 07/11/2001 [facility] ECHOCARDIOGRAPHY, , CARDIOVASCULAR SYSTEM, REAL TIME WITH IMAGE DOCUMENTATION (2D) WITH OR WITHOUT M-MODE RECORDING; 07/09/2001 [facility] CEREBRAL VASCULAR FLOW 07/04/2001 [facility] CEREBRAL VASCULAR FLOW 07/01/2001 [facility] CEREBRAL VASCULAR FLOW 06/27/2001 [facility] NON-STRESS TEST 06/24/2001 [facility] UNLISTED PROCEDURE, MATERNITY CARE AND DELIVERY 06/20/2001 [facility] OBSTETRIC PANEL 06/18/2001 [facility] ECHOCARDIOGRAPHY, , CARDIOVASCULAR SYSTEM, REAL TIME WITH IMAGE DOCUMENTATION (2D) WITH OR WITHOUT M-MODE RECORDING; 06/02/2001 [facility] ECHOCARDIOGRAPHY, , CARDIOVASCULAR SYSTEM, REAL TIME WITH IMAGE DOCUMENTATION (2D) WITH OR WITHOUT M-MODE RECORDING; 05/16/2001 [facility] EDUCATIONAL SUPPLIES, SUCH BOOKS, TAPES, AND PAMPHLETS, FOR THE PATIENT'S EDUCATION AT COST TO PHYSICIAN OR OTHER QUALIFIED HEALTH VETERINARY PHARMACOLOGIST 03/28/2001 [facility] PHYS/OTH QUALIFIED HEALTH VETERINARY PHARMACOLOGIST QUALIFIED,EDUCATION, TRAIN,LICENSURE/REGU LATION (WHEN APPLICABLE) EDUC SER RENDERED TO PATS IN A GRP SETTING (EG,,OBESITY ,OR DIABETIC INSTRUCT) 01/24/2001 [facility] INFLUENZA VIRUS VACCINE, TRIVALENT (IIV3), SPLIT VIRUS, 0.5 ML DOSAGE, FOR INTRAMUSCULAR USE 07/04/2010 [facility] ELECTROCARDIOGRAM, ROUTINE ECG WITH AT LEAST 12 LEADS; TRACING ONLY, WITHOUT INTERPRETATION AND REPORT 11/09/2008 [facility] IMMUNIZATION ADMINISTRATION BY INTRANASAL OR ORAL ROUTE; 1 VACCINE (SINGLE OR COMBINATION VACCINE/TOXOID) 08/22/2006 [facility] INTRACUTANEOUS (INTRADERMAL) TESTS WITH ALLERGENIC EXTRACTS, DELAYED TYPE REACTION, INCLUDING READING, SPECIFY NUMBER OF TESTS 05/30/2006 [facility] IMMUNIZATION ADMINISTRATION (INCLUDES PERCUTANEOUS, INTRADERMAL, SUBCUTANEOUS, OR INTRAMUSCULAR INJECTIONS); 1 VACCINE (SINGLE OR COMBINATION VACCINE/TOXOID) 04/15/2006 [facility] Preventive Medicine Administration Of Health Risk Questionnaire Patient-Focused Preventive Medicine Administration Of Health Risk Questionnaire Patient-Focused 10005 05/03/2017 GIANNA BECKER [facility] Immunization Administration By Injection, One Vaccine Immunization Administration By Injection, One Vaccine [id number] 07/04/2010 LETY FELTON [facility] Influenza Split Virus Vaccine 0.5mL Dosage Intramuscular 07/04/2010 LETY FELTON [facility] ECG Performance of Tracing Only ECG Performance of Tracing Only 64844 11/09/2008 CL LIMA [facility] Social History Combined list of available smoking, tobacco, and other social history from Department of Defense and Veterans Affairs facilities. Social History Type Response Date Comment Sourc e Tobacco smoking status [facility] VA-TOBACCO NEVER USED 02/02/2024 [facility] History of tobacco use VA-TOBACCO NEVER USED 01/28/2023 [facility] History of tobacco use VA-TOBACCO NEVER USED 12/25/2021 [facility] This section is an empty social history section. [facility]
--- OUTSIDE RECORDS SUMMARY | 2024-07-17 10:32 | XMS_ITS | Encounter Summary ---
Author Name [facility] [place] [facility] [place] [facility] [place] [facility] [place] Address [address] [place] [address] Care Team Providers Care Reagent Tender Name Role Phone NURIA BERTRAND Primary Care Provider Unavailabl e BRANDEN ARMENTA Unavailable Unavailab le Insurance Providers: All historical and current Section Date Range: From patient's date of to the date document was created. This section includes the names of all active insurance providers for the patient. Insurance Provider Type of Coverage Plan Name Start of Policy Coverage End of Policy Coverage Group Number Member ID Insurance Provider's Telephone Number Policy Oneil's Name Patient's Relationship to Policy Oneil [facility] Yarraa [facility] CE ORGANIZAT ION W/OUT OF NETWORK BENEFITS HP OPEN ACCES S Sep 16, 2018 [id number] [id number] [phone] JACOB TREJO PATIENT MEDIMPACT RX PRESCRIPT ION HEALT H PARTN ERS HSA Sep 16, 2018 [id number] JACOB TREJO PATIENT Selected Encounter This section includes the information on record at [place] for the Encounter. Date/Time Encounter Type Encounter Description Reason Provider Source February 03, 2024 09:00 AM OFFICE O/P EST MOD 30 MIN PRIMARY CARE/MEDICINE ICD-10-CM J34.2 Deviated nasal septum JINNY KERR Encounter Template Text not used by [facility] Assessments - Encounter Diagnoses This section includes the primary and secondary diagnoses documented for the Encounter. Date/Time Primary/Secondary Diagnosis Diagnosis Name Provider Source February 03, 2024 10:16 AM PRIMARY Deviated nasal septum [facility] February 03, 2024 10:16 AM SECONDARY Eosinophilia, unspecified [facility] Lab Results: +/- 30 days of the encounter This section includes the Chemistry and Hematology Lab Results on record with [place] for the patient. Radiology Reports and Pathology Reports are provided separately, in subsequent sections. Lab Results This section contains the Chemistry/Hematology Results that were resulted 30 days before or 30 daysafter the date of the Encounter. Date/Time Source Result Type Result - Unit Interpretation Reference Range Comment February 03, 2024 07:[address] [facility] LIVER FUNCTION TESTS Specimen Type: PLASMA No comment entered. Ordering Provider: RADHA ARMENTA Report Released Date/Time: January 28, 2023 03:57 PM Reporting Lab: [facility] [id number] Performing Lab: [facility] [id number] BILIRUBIN, TOTAL 0.5 mg/dL 0.2-1.2 ALKALINE PHOSPHATASE 117 U/L 40-150 ALT/SGPT 23 U/L <55 AST/SGOT 20 U/L <34 GAMMA GTP 65 U/L H <36 February 03, 2024 07:[address] [facility] BASIC METABOLIC PANEL+MG Specimen Type: PLASMA No comment entered. Ordering Provider: RADHA ARMENTA Report Released Date/Time: January 28, 2023 03:57 PM Reporting Lab: [facility] [id number] Performing Lab: [facility] [id number] CREATININE 0.9 mg/dL 0.5-1.0 UREA NITROGEN 14 mg/dL 7-20 GLUCOSE 92 mg/dL 70-100 SODIUM 142 mmol/L 136-145 POTASSIUM 3.9 mmol/L 3.5-5.1 CHLORIDE 107 mmol/L 98-107 CO2 23 mmol/L 22-29 CALCIUM 10.1 mg/dL 8.4-10.2 MAGNESIUM 2.1 mg/dL 1.6-2.6 ANION GAP 12 mmol/L 5-15 .CREAT EGFR(CKD-EPI) 75 >60 February 03, 2024 07:[address] [facility] HEMOGLOBIN A1C Specimen Type: BLOOD Comment: Values obtained from A1C measurements can vary. For typical A1C assays, a reported value of 7.0 could actually be between 6.7 and 7.3 if measured by a reference method. A reported value of 9.0 could actually be between 8.7 and 9.3. Ref: http://www.ngs p.org/CAPdata. asp Ordering Provider: RADHA ARMENTA Report Released Date/Time: January 28, 2023 03:57 PM Reporting Lab: [facility] [id number] Performing Lab: [facility] [id number] HEMOGLOBIN A1C 5.3 4.0-6.0 February 03, 2024 07:[address] [facility] LIPID PANEL,NON-FASTING Specimen Type: PLASMA No comment entered. Ordering Provider: RADHA ARMENTA Report Released Date/Time: January 28, 2023 03:57 PM Reporting Lab: [facility] [phone] Performing Lab: [facility] [phone] CHOLESTEROL 199 mg/dL <199 .HDL 48 mg/dL >50 LDL CALCULATION 125 mg/dL H <99 VLDL CALCULATION 26 mg/dL <29 NON HDL CHOLESTEROL 151 mg/dL H <129 TRIG(NON FASTING) 129 mg/dL <149 February 03, 2024 07:[address] [facility] CBC & DIFF Specimen Type: BLOOD Comment: Automated Differential Performed Ordering Provider: RADHA ARMENTA Report Released Date/Time: January 28, 2023 03:57 PM Reporting Lab: [facility] [phone] Performing Lab: [facility] [id number] WBC 6.79 10*3/uL 4.0-11.0 RBC 4.64 10*6/uL 4.0-5.4 HGB 14.0 g/dL 11.5-16 HCT 42.0 34.5-48 MCV 90.5 fL 80-100 MCH 30.2 pg 27-33 MCHC 33.3 g/dL 32.0-37.5 PLT 264 10*3/uL 150-400 MPV 9.5 fL 7.4-10.4 NEUT 50.6 40.0-80.0 LYMPHS 33.9 15.0-45.0 MONO 6.0 2.0-12.0 EOSINO 8.5 H 0.0-6.0 BASO 0.9 0.0-2.0 RDW 12.3 11.5-14.5 ABS LYMPH 2.30 10*3/uL 1.0-4.0 ABS MONO 0.41 10*3/uL 0.1-1.0 ABS NEUT 3.43 10*3/uL 2.0-7.7 ABS EOS 0.58 10*3/uL H 0-0.5 ABS BASO 0.06 10*3/uL 0-0.2 IG(META,MYELO ,PRO) 0.1 ABS IMMATURE GRAN 0.01 10*3/uL 0-0.1 Vital Signs: All taken on the encounter date This section contains inpatient and outpatient Vital Signs collected on the date of the Encounter. Date/Time Temperature Pulse Blood Pressure Respiratory Rate SP02 Pain Height Weight Body Mass Index Source February 03, 2024 08:14 AM 66 126/85 14 99 0 66 172 28 [facility] Social History: Smoking Status (Most current) and Tobacco Use (All prior to encounter date) This section includes the most current, and the historical, smoking and tobacco- related health factors from the [place] facility where the Encounter took place. Current Smoking Status This section includes the most current smoking, or tobacco-related health factor, from the [place] facility where the Encounter took place. Date/Time Current Smoking Status Comment Yang swanson February 02, 2024 09:51 PM [place]-TOBACCO NEVER [facility]ED [facility] Tobacco Use History This section includes a history of the smoking, or tobacco-related health factors, that were collected on or before the date of the Encounter. The data comes from the [place] facility where the Encounter took place. Date/Time Smoking Status/Tobacco Use Comment F acdeanna January 28, 2023 03:00 PM [facility] Dec 25, 2021 11:00 AM [facility]-TO[facility]AC[facility] NEVER [facility] Encounter Notes: All associated encounter notes This section contains the clinical notes associated to the Encounter. Date/Time Encounter Note(s) Provider Source February 03, 2024 09:03 AM INTERNAL MEDICINE NOTE: LOCAL TITLE: MEDICINE CLINIC NOTE STANDARD TITLE: INTERNAL MEDICINE NOTE DATE OF NOTE: FEBRUARY 03, 2024@09:03 ENTRY DATE: FEBRUARY 03, 2024@09:03:16 AUTHOR: GAGE BARRIGA EXP COSIGNER: URGENCY: STATUS: COMPLETED MEDICINE CLINIC NOTE Has ADDENDA MEMO TREJO is a 53 year old FEMALE with the following chief complaint: Nurse's Note Reviewed. HPI/ROS: 53 yo F w/ PMH of nasal septum deviation who presents for annual visit. She states that she has been doing well. She has started to work out more. She has switched her diet to mostly plant-based, and fish. She states that she has been prioritizing her mental health and seeing no to activities that she does not really want to do. She states that she is very excited that her son is graduating college this year. 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 She would like to visit ENT again for septoplasty as her is back in town. She receives co-managed care with PCP in [place]. She obtains her mammograms and papsmear there as well. She does note b/l itchy ears with occasional flakes. She states she has more ear was R>L. She denies hx of ear infections, swollen lymph nodes, fever, chills, erythema, pain, or congestion. Denies swimming. We discussed her GGT elevation. Her labs showed peripheral eosinophilia. Denies recent fever, chills, N/V, abdominal pain, diarrhea, hx of asthma, wheezing or SOB. Denies allergies. Recently traveled to [place] for short period of time. Past medical history/Active Problems: Active problems - Computerized Problem List is the source for the followin. Snoring 2. HLD - Hyperlipidemia - Co-managed patient. Encouraged dicsusion with pt about starting statin with non-VA PCP 3. Shingles - history of prior shingles 4. Deviated nasal septum 5. Bunion 6. Exposure to potentially hazardous substance ([facility] [id number]) [facility] Documentation Initiative Allergies: Patient has answered NKA Active Outpatient Medications (excluding Supplies): No Medications Found MEDICATION RECONCILIATION Outpatient At this visit I have reviewed the medication list, and discussed relevant medications with the patient/surrogate. An updated patient medication list was given to the participant(s). ( ) No Change ( ) Change/New: I have noted this on the patient's copy of the medication list. Education on NEW Medication: I have reviewed the medication list for possible drug:drug interactions or contraindications prior to ordering NEW medications during this visit. ( )Patient instructed. I noted new medication on patient's copy of the medication list. Patient sent to Pharmacist for education on new medication. ( )Patient ( )Family Member ( )Caregiver indicated readiness to learn and has been instructed on action, dose, frequency and side effects of the new medication and I noted new medication on participant's copy of the medication list. ( ) Verbalizes understanding of instructions. ( ) Needs additional reinforcement of instructions(sent to Pharmacist). ( )Patient unable to participate in learning/instruction. EXAM: VS: Temp: 98.3 F [36.8 C] (06/28/2023 13:44) BP: 126/85 (02/03/2024 08:14) Pulse:66 (02/03/2024 08:14) Resp: 14 (02/03/2024 08:14) Pain: 0 (02/03/2024 08:14) Weight: WEIGHTS IN LAST 6 MONTHS: 172 (FEBRUARY 03, 2024@08:14:26) O2 sat: 99% (02/03/2024 08:14) General: NAD, well nourished, well developed HEENT: no cervical lymphadenopathy, b/l ears clear, no wax, tympanic membrane intact with good cone of light, pearly merritt, no outer ear erythema or flakiness noted, no dandruff Lungs: CTAB, nonlabored respirations CV: RRR, no m/r/g Abdomen: soft, NT, ND, no hepatomegaly Extremities: no le edema, dry, warm Skin: no rashes on visible skin Neuro: grossly intact, ambulates without assistance Data/Labs: WBC: 6.79 RBC: 4.64 HGB: 14.0 HCT: 42.0 MCV: 90.5 MCH: 30.2 MCHC: 33.3 RDW: 12.3 PLT: 264 MPV: 9.5 SEGS: 50.6 LYMPHS: 33.9 MONOCYTES: 6.0 EOSINO: 8.5 H BASO: 0.9 NEUTROPHIL, ABSOLUTE: 3.43 EOSINO, ABSOLUTE: 0.58 H BASO, ABSOLUTE: 0.06 MONOCYTE, ALTERNATE ABS: 0.41 LYMPHS, ALTERNATE ABS: 2.30 I.1 IG,ABSOLUTE: 0.01 HGB A1C: 5.3 GLUCOSE: 92 UREA NITROGEN: 14 CREATININE: 0.9 SODIUM: 142 POTASSIUM: 3.9 CHLORIDE: 107 CO2: 23 CALCIUM: 10.1 CHOLESTEROL: 199 BILIRUBIN,TOTAL: 0.5 MAGNESIUM: 2.1 HDL: 48 ANION GAP: 12 LDL CHOL: 125 H VLDL CHOL: 26 ALKALINE PHOSPHATASE(37C): 117 SGOT(37C): 20 SGPT(37C): 23 NON HDL CHOLESTEROL: 151 H GAMMA-GTP(): 65 H TRIG(NON FASTING): 129 CREATININE EGFR (CKD-EPI): 75 Assessment and Plan: 1. Isolated elevated GGT: In the absence of other LFT abnormalities and symptoms, this is likely not liver disease. Patient does not have family history of abdominal cancers or hepatobiliary disorders. Her GGT is trending down from prior. Imaging is not indicated at this time. 2. Peripheral eosinophilia: Noted to have elevated peripheral eosinophils on CBC today. No signs or symptoms concerning for infection, or allergies. It is reasonable to monitor with next year's labs. 3. HLD Screening: Pt does not have hyperlipidemia. Will remove from her problem list. ASCVD 2.2%. Repeat lipid panel in 5 years. 4. Deviated nasal septum: advised to contact ENT regarding rescheduling septoplasty 5. R>L ear pruritis: history and exam not indicative of infection, eczema, or seborrheic dermatitis. Advised pt not to clean her ear canal as frequently. - q5 year lipid panel (next due 2028) - encouraged ongoing exercise and healthy diet - repeat CBC w/ diff in 1 year to monitor peripheral eosinophilia. Suspect will resolve. - Liver imaging is not indicated. Will monitor LFTs with yearly CMP. No need to obtain GGT in future unless symptomatic. - advised to contact ENT to reschedule septoplasty. # Routine health maintenance - Mammogram: last 2022 (reportedly normal per pt), advised to send records. next due 2023 - Pap smear w/ co-testing: last pap 10/2021 (reportedly all normal per pt), advised to send records, next due 2026 - Colonoscopy: 07/2019 normal, next due 2028 - Shingles vaccine: recieved at age 48 - HIV: reports testing negative while in service. No high risk sexual activity. Monogomous with . - COVID: fully vaccinated - vaccinations up to date. Tdap due 2031. Patient staffed with Dr. Kerr [facility] in 1 year with aleksey Barriga MD Internal Medicine, PGY-2 Education on Treatment Plan: Patient indicates readiness to learn, verbalizes understanding, agreement and satisfaction with the treatment plan. Denies further questions. Patient indicates readiness to learn and has been instructed on action, dose, frequency, and side effects of medications. Patient verbalizes understanding. The medication list above was reviewed with the patient at today's visit. I have indicated discrepancies under each medication that is not being taken as prescribed. I have updated the medicines under the med tab as appropriate. /es/ GAGE BARRIGA RESIDENT PHYSICIAN Signed: 02/03/2024 10:16 Receipt Acknowledged By: 02/03/2024 10:49 /es/ Jinny Kerr MD STAFF PHYSICIAN 02/03/2024 ADDENDUM STATUS: COMPLETED Medication Reconciliation: Education Evaluations *Was medication education provided for NEW medications or CHANGES to medications? (including medication name, dose, route, reason for use, and potential side effects). No new medications or medication changes during this encounter. TERATOGENIC MED & CONTRACEPTION REVIEW (Optional)... === MEDICATION RECONCILIATION === Active and Recently Outpatient Medications (including Supplies): No Medications Found /es/ GAGE BARRIGA RESIDENT PHYSICIAN Signed: 02/03/2024 10:19 02/03/2024 ADDENDUM STATUS: COMPLETED I have reviewed this patient's history (obtained by the resident), pertinent physical examination (performed by the resident), and, when obtained and available, pertinent laboratory, radiologic or other diagnostic tests with the resident evaluating this patient. I agree with the treatment plan as outlined. This plan was reviewed with the resident on the date of this note. /drew/ Jinny Kerr MD STAFF PHYSICIAN Signed: 02/03/2024 10:[address] [facility] February 03, 2024 08:16 AM INTERNAL MEDICINE OUTPATIENT NOTE: LOCAL TITLE: MEDICINE CLINIC NURSING NOTE STANDARD TITLE: INTERNAL MEDICINE OUTPATIENT NOTE DATE OF NOTE: FEBRUARY 03, 2024@08:16 ENTRY DATE: FEBRUARY 03, 2024@08:16:09 AUTHOR: YANCI FOOTE COSIGNER: URGENCY: STATUS: COMPLETED TYPE OF VISIT: Appointment Check In Type of appointment: In-person appointment REASON FOR VISIT: Annual check up. ALLERGIES: Patient has answered NKA VITAL SIGNS: Blood Pressure: 126/85 (02/03/2024 08:14) Pulse: 66 (02/03/2024 08:14) Respiration: 14 (02/03/2024 08:14) Temperature: 98.3 F [36.8 C] (06/28/2023 13:44) Weight: 172 lb [78.02 kg] (02/03/2024 08:14) Height: 66 in [167.6 cm] (02/03/2024 08:14) BMI: 27.8 O2 Sat: 99% (02/03/2024 08:14) Pain: 0 (02/03/2024 08:14) PAIN SCREEN: Patient is not having significant pain that they wish to discuss with their provider today. MEDICATION Over the Counter/Herbal Medications: The patient states that they take some outside medications and/or herbals. FEMALE Last menstrual period (LMP): no Contraception: no : 3 Para: 3,1,0,3 Tobacco Pack Year History: Lifetime non-cigarette smoker or smoked FEWER THAN 100 cigarettes/lifetime COVID-19 Immunization: Refused Pfizer Monovalent COVID-19 vaccine Immunization: COVID-19 (PFIZER), MRNA, LNP-S, PF, AUNG-SUCROSE, 30 MCG/0.3 ML (AGES 12+ YEARS) Refusal Reason: PATIENT DECISION Patient refuses all immunization(s) in the COVID-19 group Date Documented: 02/03/24 08:18 Suicide Screen: C-SSRS Screening [place] Suicide Severity Rating Scale (C-SSRS) screener 1. Over the past month, have you wished you were or wished you could go to sleep and not wake up? No 2. Over the past month, have you had any actual thoughts of killing yourself? No 3. Over the past month, have you been thinking about how you might do this? Response not required due to responses to other questions. 4. Over the past month, have you had these thoughts and had some intention of acting on them? Response not required due to responses to other questions. 5. Over the past month, have you started to work out or worked out the details of how to kill yourself? Response not required due to responses to other questions. 6. If yes, at any time in the past month did you intend to carry out this plan? Response not required due to responses to other questions. 7. In your lifetime, have you ever done anything, started to do anything, or prepared to do anything to end your life (for example, collected pills, obtained a gun, gave away valuables, went to the roof but didn't jump)? No 8. If YES, was this within the past 3 months? Response not required due to responses to other questions. Depression Screening: Perform PHQ-2 A PHQ-2 screen was performed. The score was 0 which is a negative screen for depression. Over the past two weeks, how often have you been bothered by the following problems? 1. Little interest or pleasure in doing things Not at all 2. Feeling down, depressed, or hopeless Not at all Alcohol Use Screen (AUDIT-C): Alcohol Screen: SCREEN FOR ALCOHOL (AUDIT-C) An alcohol screening test (AUDIT-C) was negative (score=1). 1. How often did you have a drink containing alcohol in the past year? Consider a drink to be a 12 ounce can or bottle of regular beer, 8 ounces of malt liquor, a 5 ounce glass of table wine, or a 1.5 ounce shot of liquor (like scotch, gin, or vodka). Monthly or less 2. How many drinks containing alcohol did you have on a typical day when you were drinking in the past year? One or two drinks 3. How often did you have 4 or more drinks on one occasion in the past year? Never Nursing Annual Screening: Fall History Screen During the past 12 months, have you had any falls? Patient does not report any falls in the past 12 months. MEDICATIONS: Patient does not have an active prescription for one of the following medications: Antihypertensives, Antidepressants, Antipsychotics, Diuretics, or Opioid Analgesics (Contolled Substance medications used for pain). Script Talk Screen Are you able to read your prescription bottles with your glasses, magnifiers or other aids? Yes or patient not taking any prescriptions. Skin Screen Patient reports any current pressure ulcers, a history of pressure ulcers, or a wound from a medical front desk specialist or Patient is bed-confined or a wheelchair-user or Patient requires assistance to transfer/change position No, Skin Screen is Negative Home Abuse/Violence Screen Is your home free of abuse and violence? Yes MOVE! Program Screen Body Mass Index (BMI)= 27.8 [place]: Collection DT Specimen Test Name Result Units Ref Range 02/03/2024 07:48 BLOOD !! HEMOGLOBIN A1C 5.3 % 4.0 - 6.0 !! Indicates COMMENTS AVAILABLE...Refer to Interim Lab Report. [place] Hgb A1C: No data available [place] Hgb A1C: No data available Point of Care Hgb A1C: POC HGB A1C____ [place] is already enrolled in the Move program. Outpatient Nutrition Screen Body Mass Index (BMI)= 27.8 [place]: Collection DT Specimen Test Name Result Units Ref Range 02/03/2024 07:48 BLOOD !! HEMOGLOBIN A1C 5.3 % 4.0 - 6.0 !! Indicates COMMENTS AVAILABLE...Refer to Interim Lab Report. [place] Hgb A1C: No data available [place] Hgb A1C: No data available Point of Care Hgb A1C: POC HGB A1C____ Is patient's BMI less than 18.5? No Does patient have swallowing, coughing, or chewing problems affecting oral intake? No Has patient experienced unplanned weight loss or gain greater than 10 pounds over the last 2 months? No Is patient's Hgb A1C (Glycosylated Hemoglobin) greater than 9.5? No Is patient receiving Total Parenteral Nutrition (TPN) or Tube Feedings? No Patient Health Education Screen BARRIERS/SPECIAL NEEDS: No barriers identified PREFERRED STYLE OF LEARNING: No preference stated Client Assistive Service (REGINO) Screen Does the patient require assistance with outpatient visit? Deonna /drew/ YANCI FOOTE LPN STAFF MARKETING MGR Signed: 02/03/2024 08:[address] [facility]
== END 2024-07-17 10:26 | disposition home or self-care (01) ==
LOC: MAMMO 10:27
PROVIDERS: PCP Emergency Medicine; Visit Provider Emergency Medicine
DX: Z12.31 Encounter for screening mammogram for malignant neoplasm of breast (principal); N63.10 Unspecified lump in the right breast, unspecified quadrant
CPT/HCPCS: 77063; 77067

== ENCOUNTER 2024-07-29 07:45 | Outpatient (CLI) | payer OTHER, SELFPAY ==
--- NOTE | 2024-07-29 07:45 | CRLHL7_ITS ---
For Patients: As a result of the Cures Act, medical imaging exams and procedure reports are released immediately into your electronic medical record. You may view this report before your referring provider. If you have questions, please contact your health care provider. DIGITAL DIAGNOSTIC RIGHT MAMMOGRAM USING TOMOSYNTHESIS AND COMPUTER-AIDED DETECTION RIGHT BREAST ULTRASOUND CLINICAL HISTORY: RIGHT breast mass/asymmetry. COMPARISON: 07/17/24, 01/04/23, 10/11/21. TECHNIQUE: Digital RIGHT mammogram in two projections. Tomosynthesis was used in this interpretation. Real-time ultrasound imaging of RIGHT breast with imaging documentation. Scanning was performed by both the technologist and the radiologist. BREAST COMPOSITION: There are scattered areas of fibroglandular density. FINDINGS: 3D spot compression CC and 3D true lateral RIGHT breast mammogram images submitted. Persistent nodular density is present within the lateral RIGHT breast without architectural distortion. No suspicious calcifications. Targeted RIGHT breast ultrasound performed. At 9 o`clock 2 cm from the nipple, there is a hypoechoic macro lobular solid nodule measuring 5 x 4 x 6 millimeters. IMPRESSION: Indeterminate solid nodule RIGHT breast 9 o`clock 2 cm from the nipple measuring 6 millimeters. RECOMMENDATIONS: Ultrasound-guided core needle biopsy. BI-RADS Category 4: Suspicious. A lay language report of this examination will be provided to the patient. Dictated by Trung Austin MD @ 07/29/2024 10:43:57 AM /Dictated by: Trung Austin MD @ 07/29/2024 10:43:00 AM (Electronically Signed)
--- OUTSIDE RECORDS SUMMARY | 2024-07-29 07:49 | XMS_ITS | Continuity of Care Document ---
Author Name [facility] Organization [facility] Care Team Providers Care Uke Driver Name Role Phone [facility] Unavailable Unavailable Problems Combined list of problems from Department of Defense and Veterans Affairs facilities. It does not include entries that were removed or entered in error. Problem Status Onset Date Problem Type Date of Resolution Comments Source Exposure to potentially hazardous substance (SCT [id number]) Active 11/21/19 24 Condition Nov 21, 2023 Entered By: WENDY MACKEY Comment: [facility] Documentation Initiative [facility] Shingles Inactive 09/16/19 12 Condition 06/08/2019 Jun 08, 2019 Entered By: HAILE HALE Comment: history of shingles of R face. No occular involvement, but gets annual eye exam due to proximity. Vaccine at 48 y/o. [facility] Bunion Active Condition [facility] Deviated nasal septum Active Condition [facility] Shingles Active Condition Mar 15 Entered By: HAILE HALE Comment: history of prior shingles [facility] Snoring Active Condition [facility] visit for: administrative purpose Inactive Condition [facility] lumbar radiculopathy Active Condition [facility] Physical Examination Inactive Condition [facility] Need For Vaccination Against Influenza Inactive Condition [facility] normal Inactive Condition pt has EDC of August 30, 2007. [facility] visit for: services physical Active Condition [facility] Diagnosis: ICD-10-CM J34.2 Deviated nasal septum Active Diagnosis [facility] Diagnosis: ICD-10-CM Z71.89 Other specified counseling Active Diagnosis [facility] Diagnosis: ICD-10-CM Z01.818 Encounter for other preprocedural examination Active Diagnosis [facility] Diagnosis: ICD-10-CM Z13.6 Encounter for screening for cardiovascular disorders Active Diagnosis [facility] Diagnosis: ICD-10-CM E66.3 Overweight Active Diagnosis [facility] Diagnosis: ICD-10-CM R06.83 Snoring Active Diagnosis [facility] Allergies, Adverse Reactions, Alerts Combined list of allergies from Department of Defense and Veterans Affairs facilities. It does not include entries that were removed or entered in error. Substance Category Reaction Severity Reaction type Status Date Reported Comments Source No Known Allergies Drug allergy (disorder) active 11/09/2008 [facility] Immunizations Combined list of available immunizations from the Department of Defense and Veterans Affairs facilities. Immunization Series Date Given Administered By Site Reaction Lot Number CVX Code Drug Perfusionist Status Comments Source INFLUENZA, INJECTABLE, QUADRIVALENT, PRESERVATIVE FREE 2022 150 complet ed [facility] INFLUENZA, UNSPECIFIED FORMULATION 2022 88 complet ed [facility] INFLUENZA, INJECTABLE, QUADRIVALENT, PRESERVATIVE FREE 2021 150 complet ed [facility] COVID-19 ([email or web address]), MRNA, LNP-S, PF, 30 MCG/0.3 ML DOSE, AUNG-SUCROSE (AGES 12+ YEARS) 4 2021 217 complet ed PFR; [id number]; 2 [facility] TDAP 2021 115 complet ed [facility] COVID-19 ([email or web address]), MRNA, LNP-S, PF, 30 MCG/0.3 ML DOSE 3 2020 208 complet ed PFR; [id number]; 2 [facility] INFLUENZA, RECOMBINANT, QUADRIVALENT, INJECTABLE, PRESERVATIVE FREE 2020 185 complet ed [facility] influenza, recombinant, quadrivalent, injectable, preservative free 2020 MICHAELA, () Not Given influenza , recombina nt, quadrival ent,injec table, preservat lisandra free [facility] COVID-19 ([employer]), MRNA, LNP-S, PF, 30 MCG/0.3 ML DOSE 2 2020 208 complet ed PFR; [id number]; 1 [facility] COVID-19 ([employer]), MRNA, LNP-S, PF, 30 MCG/0.3 ML DOSE 1 2020 208 complet ed PFR; [id number]; 1 [facility] INFLUENZA, INJECTABLE, QUADRIVALENT, PRESERVATIVE FREE 2019 150 complet ed [facility] INFLUENZA, INJECTABLE, QUADRIVALENT, PRESERVATIVE FREE [address] [facility] INFLUENZA, HIGH DOSE SEASONAL [address] [facility] ZOSTER RECOMBINANT [address] [facility] ZOSTER RECOMBINANT [address] [facility] INFLUENZA, INJECTABLE, QUADRIVALENT [address] [facility] influenza virus vaccine, unspecified formulation 1 2016 Unknown, Provider 88 Transcribed (TRS) complet ed influenza virus vaccine, unspecifi ed formulati on [facility] Influenza, seasonal, injectable 1 2015 141 Transcribed (TRS) complet Influenza , seasonal, injectabl e DoD INFLUENZA, SEASONAL, INJECTABLE, PRESERVATIVE FREE [address] [facility] tetanus toxoid, reduced diphtheria toxoid, and acellular pertu is vaccine, adsorbed 3 2015 [id number] 115 [email or web address] (SKB) complet ed tetanus toxoid, reduced diphtheri a toxoid, and acellular pertussis vaccine, adsorbed [facility] INFLUENZA, SEASONAL, INJECTABLE, PRESERVATIVE FREE [address] [facility] influenza virus vaccine, unspecified formulation 1 2014 88 Transcribed (TRS) complet ed influenza virus vaccine, unspecifi ed formulati on [facility] hepatitis B vaccine, adult dosage 3 2014 [id number] [employer] (SKB) complet hepatitis B vaccine, adult dosage DoD hepatitis B vaccine, adult dosage 2 2013 [id number] [employer] ([facility]) complet ed hepatitis B vaccine, adult dosage [facility] influenza virus vaccine, unspecified formulation 1 2013 88 Transcribed (TRS) complet ed influenza virus vaccine, unspecifi ed formulati on [facility] hepatitis B vaccine, adult dosage 0 2013 [id number] 43 [employer] (SKB) complet ed hepatitis B vaccine, adult dosage DoD influenza virus vaccine, live, attenuated, for intranasal use 1 2012 111 Transcribed (TRS) complet ed influenza virus vaccine, live, attenuate d, for intranasa l use [facility] influenza virus vaccine, live, attenuated, for intranasal use 1 2011 111 Transcribed (TRS) complet ed influenza virus vaccine, live, attenuate d, for intranasa l use [facility] INFLUENZA, SEASONAL, INJECTABLE 2010 141 complet ed [facility] Influenza, seasonal, injectable 0 2010 141 Other (OTH) complet ed Influenza , seasonal, injectabl e DoD influenza virus vaccine, split virus (incl. purified surface antigen)-reti red CODE 1 2009 Unknown, Provider [id number] [facility] [employer] (CS) complet ed influenza virus vaccine, split virus (incl. purified surface antigen)- retired CODE DoD Novel influenza-H1N 1-09, injectable 1 2008 SOREN MCINTOSH [id number] 127 [employer] [place]. (NOV) complet ed Novel influenza -[id number], injectabl e DoD Novel influenza-H1N 1-09, all formulations 1 2008 [id number] 1A 128 [employer] [place]. (NOV) complet ed Novel influenza -[id number], all formulati ons DoD tuberculin skin test; purified protein derivative solution, intradermal 0 2008 96 Transcribed (TRS) complet ed tuberculi n skin test; purified protein derivativ e solution, intraderm al DoD influenza virus vaccine, live, attenuated, for intranasal use 1 2008 LILIANE CARMEN [id number] [employer] (MED) complet ed influenza [...] 1 2007 SOREN MCINTOSH [id number] [facility] (SKB) complet ed influenza virus vaccine, unspecifi ed formulati on DoD influenza virus vaccine, live, attenuated, for intranasal use 1 2007 SOREN MCINTOSH [id number] [employer] (MED) complet ed influenza virus vaccine, live, attenuate d, for intranasa l use DoD influenza virus vaccine, split virus (incl. purified surface antigen)-reti red CODE 2 2006 15 Transcribed (TRS) complet ed influenza virus vaccine, split virus (incl. purified surface antigen)- retired CODE DoD influenza virus vaccine, unspecified formulation 1 2005 UNK 88 [employer] (MED) complet ed influenza virus vaccine, unspecifi ed formulati on DoD tetanus toxoid, reduced diphtheria toxoid, and acellular pertu is vaccine, adsorbed 1 2005 UNK 115 Sanofi Pasteur ([facility]) complet ed tetanus toxoid, reduced diphtheri a toxoid, and acellular pertussis vaccine, adsorbed DoD influenza virus vaccine, split virus (incl. purified surface antigen)-reti red CODE 1 2002 [id number] [employer] (PWJ) complet ed influenza virus vaccine, split virus (incl. purified surface antigen)- retired CODE DoD influenza virus vaccine, whole virus 1 2002 Unknown, Provider [id number] [employer] (PWJ) complet ed influenza virus vaccine, whole virus DoD tuberculin skin test; purified protein derivative solution, intradermal 1 2001 Unknown, Provider [id number] [facility] (CON) complet ed tuberculi n skin test; purified protein derivativ e solution, intraderm al DoD influenza virus vaccine, whole virus 0 2001 [id number] Sanofi Pasteur ([facility]) complet ed influenza virus vaccine, whole [...] January 28, 2023 03:57 PM Reporting Lab: [facility] [phone] Performing Lab: [facility] [address] [facility] LIVER FUNCTION TESTS ALKALINE PHOSPHATASE [ENZYMATIC ACTIVITY/VO LUME] IN SERUM OR PLASMA 117 U/L 40 - 150 02/02 Specimen Type: PLASMA No comment entered. Ordering Provider: BRANDEN ARMENTA Report Released Date/Time: January 28, 2023 03:57 PM Reporting Lab: [facility] [address] Performing Lab: [facility] [address] [facility] LIVER FUNCTION TESTS ALANINE AMINOTRANSF ERASE [ENZYMATIC ACTIVITY/VO LUME] IN SERUM OR PLASMA 23 U/L <55 - 55 02/02 Specimen Type: PLASMA No comment entered. Ordering Provider: BRANDEN ARMENTA Report Released Date/Time: January 28, 2023 03:57 PM Reporting Lab: [facility] [address] Performing Lab: [facility] [address] [facility] LIVER FUNCTION TESTS ASPARTATE AMINOTRANSF ERASE [ENZYMATIC ACTIVITY/VO LUME] IN SERUM OR PLASMA 20 U/L <34 - 34 02/02 Specimen Type: PLASMA No comment entered. Ordering Provider: BRANDEN ARMENTA Report Released Date/Time: January 28, 2023 03:57 PM Reporting Lab: [facility] [address] Performing Lab: [facility] [address] [place] [facility] LIVER FUNCTION TESTS GAMMA GLUTAMYL TRANSFERASE [ENZYMATIC ACTIVITY/VO LUME] IN SERUM OR PLASMA 65 U/L <36 - 36 02/02 H Specimen Type: PLASMA No comment entered. Ordering Provider: BRANDEN ARMENTA Report Released Date/Time: January 28, 2023 03:57 PM Reporting Lab: [facility] [address] Performing Lab: [facility] [address] [place] [facility] BASIC METABOLIC PANEL+MG CREATININE [MASS/VOLUM E] IN SERUM OR PLASMA 0.9 mg/dL 0.5 - 1.0 02/02 Specimen Type: PLASMA No comment entered. Ordering Provider: BRANDEN ARMENTA Report Released Date/Time: January 28, 2023 03:57 PM Reporting Lab: [facility] [address] Performing Lab: [facility] [address] [place] [facility] BASIC METABOLIC PANEL+MG UREA NITROGEN [MASS/VOLUM E] IN SERUM OR PLASMA 14 mg/dL 7 - 20 02/02 Specimen Type: PLASMA No comment entered. Ordering Provider: BRANDEN ARMENTA Report Released Date/Time: January 28, 2023 03:57 PM Reporting Lab: [facility] [address] Performing Lab: [facility] [address] [place] [facility] BASIC METABOLIC PANEL+MG GLUCOSE [MASS/VOLUM E] IN SERUM OR PLASMA 92 mg/dL 70 - 100 02/02 Specimen Type: PLASMA No comment entered. Ordering Provider: BRANDEN ARMENTA Report Released Date/Time: January 28, 2023 03:57 PM Reporting Lab: [facility] [address] Performing Lab: [facility] [address] [place] [facility] BASIC METABOLIC PANEL+MG SODIUM [MOLES/VOLU ME] IN SERUM OR PLASMA 142 mmol/L 136 - 145 02/02 Specimen Type: PLASMA No comment entered. Ordering Provider: BRANDEN ARMENTA Report Released Date/Time: January 28, 2023 03:57 PM Reporting Lab: [facility] [address] Performing Lab: [facility] [address] [place] [facility] BASIC METABOLIC PANEL+MG POTASSIUM [MOLES/VOLU ME] IN SERUM OR PLASMA 3.9 mmol/L 3.5 - 5.1 02/02 Specimen Type: PLASMA No comment entered. Ordering Provider: BRANDEN ARMENTA Report Released Date/Time: January 28, 2023 03:57 PM Reporting Lab: [facility] [address] Performing Lab: [facility] [address] [place] [facility] BASIC METABOLIC PANEL+MG CHLORIDE [MOLES/VOLU ME] IN SERUM OR PLASMA 107 mmol/L 98 - 107 02/02 Specimen Type: PLASMA No comment entered. Ordering Provider: BRANDEN ARMENTA Report Released Date/Time: January 28, 2023 03:57 PM Reporting Lab: [facility] [address] Performing Lab: [facility] [address] [place] [facility] BASIC METABOLIC PANEL+MG CARBON DIOXIDE, TOTAL [MOLES/VOLU ME] IN SERUM OR PLASMA 23 mmol/L 22 - 29 02/02 Specimen Type: PLASMA No comment entered. Ordering Provider: BRANDEN ARMENTA Report Released Date/Time: January 28, 2023 03:57 PM Reporting Lab: [facility] [address] Performing Lab: [facility] [address] [place] [facility] BASIC METABOLIC PANEL+MG CALCIUM [MASS/VOLUM E] IN SERUM OR PLASMA 10.1 mg/dL 8.4 - 10.2 02/02 Specimen Type: PLASMA No comment entered. Ordering Provider: BRANDEN ARMENTA Report Released Date/Time: January 28, 2023 03:57 PM Reporting Lab: [facility] [address] Performing Lab: [facility] [address] [place] [facility] BASIC METABOLIC PANEL+MG MAGNESIUM [MASS/VOLUM E] IN SERUM OR PLASMA 2.1 mg/dL 1.6 - 2.6 02/02 Specimen Type: PLASMA No comment entered. Ordering Provider: BRANDEN ARMENTA Report Released Date/Time: January 28, 2023 03:57 PM Reporting Lab: [facility] [address] Performing Lab: [facility] [address] [place] [facility] BASIC METABOLIC PANEL+MG ANION GAP IN SERUM OR PLASMA 12 mmol/L - 02/02 Specimen Type: PLASMA No comment entered. Ordering Provider: BRANDEN ARMENTA Report Released Date/Time: January 28, 2023 03:57 PM Reporting Lab: [facility] [address] Performing Lab: [facility] [address] [place] [facility] BASIC METABOLIC PANEL+MG GLOMERULAR FILTRATION RATE/1.73 SQ M.PREDICTED [VOLUME RATE/AREA] IN SERUM, PLASMA OR BLOOD BY CREATININE- BASED FORMULA (CKD-EPI 2020) 75 60 02/02 Specimen Type: PLASMA No comment entered. Ordering Provider: BRANDEN ARMENTA Report Released Date/Time: January 28, 2023 03:57 PM Reporting Lab: [facility] [address] Performing Lab: [facility] [address] [place] [facility] HEMOGLOBI N A1C HEMOGLOBIN A1C/HEMOGLO BIN.TOTAL IN [...] January 28, 2023 03:57 PM Reporting Lab: [facility] [address] Performing Lab: [facility] [address] [place] [facility] LIPID PANEL,NON -FASTING CHOLESTEROL [MASS/VOLUM E] IN SERUM OR PLASMA 199 mg/dL <199 - 199 02/02 Specimen Type: PLASMA No comment entered. Ordering Provider: BRANDEN ARMENTA Report Released Date/Time: January 28, 2023 03:57 PM Reporting Lab: [facility] [address] Performing Lab: [facility] [address] [place] [facility] LIPID PANEL,NON -FASTING CHOLESTEROL IN HDL [MASS/VOLUM E] IN SERUM OR PLASMA 48 mg/dL 50 02/02 Specimen Type: PLASMA No comment entered. Ordering Provider: BRANDEN ARMENTA Report Released Date/Time: January 28, 2023 03:57 PM Reporting Lab: [facility] [address] Performing Lab: [facility] [address] [place] [facility] LIPID PANEL,NON -FASTING CHOLESTEROL IN LDL [MASS/VOLUM E] IN SERUM OR PLASMA BY CALCULATION 125 mg/dL <99 - 99 02/02 H Specimen Type: PLASMA No comment entered. Ordering Provider: BRANDEN ARMENTA Report Released Date/Time: January 28, 2023 03:57 PM Reporting Lab: [facility] [address] Performing Lab: [facility] [address] [place] [facility] LIPID PANEL,NON -FASTING CHOLESTEROL IN VLDL [MASS/VOLUM E] IN SERUM OR PLASMA BY CALCULATION 26 mg/dL <29 - 29 02/02 Specimen Type: PLASMA No comment entered. Ordering Provider: BRANDEN ARMENTA Report Released Date/Time: January 28, 2023 03:57 PM Reporting Lab: [facility] [address] Performing Lab: [facility] [address] [place] [facility] LIPID PANEL,NON -FASTING CHOLESTEROL NON HDL [MASS/VOLUM E] IN SERUM OR PLASMA 151 mg/dL <129 - 129 02/02 H Specimen Type: PLASMA No comment entered. Ordering Provider: BRANDEN ARMENTA Report Released Date/Time: January 28, 2023 03:57 PM Reporting Lab: [facility] [address] Performing Lab: [facility] [address] [place] [facility] LIPID PANEL,NON -FASTING TRIGLYCERID E [MASS/VOLUM E] IN SERUM OR PLASMA 129 mg/dL <149 - 149 02/02 Specimen Type: PLASMA No comment entered. Ordering Provider: BRANDEN ARMENTA Report Released Date/Time: January 28, 2023 03:57 PM Reporting Lab: [facility] [address] Performing Lab: [facility] [address] [place] [facility] CBC & DIFF LEUKOCYTES [#/VOLUME] IN BLOOD BY AUTOMATED COUNT 6.79 10*3/u L 4.0 - 11.0 02/02 Specimen Type: BLOOD Comment: Automated Differentia l Performed Ordering Provider: BRANDEN ARMENTA Report Released Date/Time: January 28, 2023 03:57 PM Reporting Lab: [facility] [address] Performing Lab: [facility] [address] [place] [facility] CBC & DIFF ERYTHROCYTE S [#/VOLUME] IN BLOOD BY AUTOMATED COUNT 4.64 10*6/u L 4.0 - 5.4 02/02 Specimen Type: BLOOD Comment: Automated Differentia l Performed Ordering Provider: BRANDEN ARMENTA Report Released Date/Time: January 28, 2023 03:57 PM Reporting Lab: [facility] [address] Performing Lab: [facility] [address] [place] [facility] CBC & DIFF HEMOGLOBIN [MASS/VOLUM E] IN BLOOD 14.0 g/dL 11.5 - 16 02/02 Specimen Type: BLOOD Comment: Automated Differentia l Performed Ordering Provider: BRANDEN ARMENTA Report Released Date/Time: January 28, 2023 03:57 PM Reporting Lab: [facility] [address] Performing Lab: [facility] [address] [place] [facility] CBC & DIFF HEMATOCRIT [VOLUME FRACTION] OF BLOOD BY AUTOMATED COUNT 42.0 34.5 - 48 02/02 Specimen Type: BLOOD Comment: Automated Differentia l Performed Ordering Provider: BRANDEN ARMENTA Report Released Date/Time: January 28, 2023 03:57 PM Reporting Lab: [facility] [address] Performing Lab: [facility] [address] [place] [facility] CBC & DIFF MCV [ENTITIC VOLUME] BY AUTOMATED COUNT 90.5 fL 80 - 100 02/02 Specimen Type: BLOOD Comment: Automated Differentia l Performed Ordering Provider: BRANDEN ARMENTA Report Released Date/Time: January 28, 2023 03:57 PM Reporting Lab: [facility] [address] Performing Lab: [facility] [address] [place] [facility] CBC & DIFF MCH [ENTITIC MASS] BY AUTOMATED COUNT 30.2 pg 27 - 33 02/02 Specimen Type: BLOOD Comment: Automated Differentia l Performed Ordering Provider: BRANDEN ARMENTA Report Released Date/Time: January 28, 2023 03:57 PM Reporting Lab: [facility] [address] Performing Lab: [facility] [address] [place] [facility] CBC & DIFF MCHC [MASS/VOLUM E] BY AUTOMATED COUNT 33.3 g/dL 32.0 - 37.5 02/02 Specimen Type: BLOOD Comment: Automated Differentia l Performed Ordering Provider: BRANDEN ARMENTA Report Released Date/Time: January 28, 2023 03:57 PM Reporting Lab: [facility] [address] Performing Lab: [facility] [address] [place] [facility] CBC & DIFF PLATELETS [#/VOLUME] IN BLOOD BY AUTOMATED COUNT 264 10*3/u L 150 - 400 02/02 Specimen Type: BLOOD Comment: Automated Differentia l Performed Ordering Provider: BRANDEN ARMENTA Report Released Date/Time: January 28, 2023 03:57 PM Reporting Lab: [facility] [address] Performing Lab: [facility] [address] [place] [facility] CBC & DIFF PLATELET MEAN VOLUME [ENTITIC VOLUME] IN BLOOD BY AUTOMATED COUNT 9.5 fL 7.4 - 10.4 02/02 Specimen Type: BLOOD Comment: Automated Differentia l Performed Ordering Provider: BRANDEN ARMENTA Report Released Date/Time: January 28, 2023 03:57 PM Reporting Lab: [facility] [address] Performing Lab: [facility] [address] [place] [facility] CBC & DIFF NEUTROPHILS /100 LEUKOCYTES IN BLOOD BY MANUAL COUNT 50.6 40.0 - 80.0 02/02 Specimen Type: BLOOD Comment: Automated Differentia l Performed Ordering Provider: BRANDEN ARMENTA Report Released Date/Time: January 28, 2023 03:57 PM Reporting Lab: [facility] [address] Performing Lab: [facility] [address] [place] [facility] CBC & DIFF LYMPHOCYTES /100 LEUKOCYTES IN BLOOD BY MANUAL COUNT 33.9 15.0 - 45.0 02/02 Specimen Type: BLOOD Comment: Automated Differentia l Performed Ordering Provider: BRANDEN ARMENTA Report Released Date/Time: January 28, 2023 03:57 PM Reporting Lab: [facility] [address] Performing Lab: [facility] [address] [place] [facility] CBC & DIFF MONOCYTES/1 00 LEUKOCYTES IN BLOOD BY AUTOMATED COUNT 6.0 2.0 - 12.0 02/02 Specimen Type: BLOOD Comment: Automated Differentia l Performed Ordering Provider: BRANDEN ARMENTA Report Released Date/Time: January 28, 2023 03:57 PM Reporting Lab: [facility] [address] Performing Lab: [facility] [address] [place] [facility] CBC & DIFF EOSINOPHILS /100 LEUKOCYTES IN BLOOD BY AUTOMATED COUNT 8.5 0.0 - 6.0 02/02 H Specimen Type: BLOOD Comment: Automated Differentia l Performed Ordering Provider: BRANDEN ARMENTA Report Released Date/Time: January 28, 2023 03:57 PM Reporting Lab: [facility] [address] Performing Lab: [facility] [address] [place] [facility] CBC & DIFF BASOPHILS/1 00 LEUKOCYTES IN BLOOD BY MANUAL COUNT 0.9 0.0 - 2.0 02/02 Specimen Type: BLOOD Comment: Automated Differentia l Performed Ordering Provider: BRANDEN ARMENTA Report Released Date/Time: January 28, 2023 03:57 PM Reporting Lab: [facility] [address] Performing Lab: [facility] [address] [place] [facility] CBC & DIFF ERYTHROCYTE DISTRIBUTIO N WIDTH [RATIO] BY AUTOMATED COUNT 12.3 11.5 - 14.5 02/02 Specimen Type: BLOOD Comment: Automated Differentia l Performed Ordering Provider: BRANDEN ARMENTA Report Released Date/Time: January 28, 2023 03:57 PM Reporting Lab: [facility] [address] Performing Lab: [facility] [address] [place] [facility] CBC & DIFF LYMPHOCYTES [#/VOLUME] IN BLOOD BY AUTOMATED COUNT 2.30 10*3/u L 1.0 - 4.0 02/02 Specimen Type: BLOOD Comment: Automated Differentia l Performed Ordering Provider: BRANDEN ARMENTA Report Released Date/Time: January 28, 2023 03:57 PM Reporting Lab: [facility] [address] Performing Lab: [facility] [address] [place] [facility] CBC & DIFF MONOCYTES [#/VOLUME] IN BLOOD BY AUTOMATED COUNT 0.41 10*3/u L 0.1 - 1.0 02/02 Specimen Type: BLOOD Comment: Automated Differentia l Performed Ordering Provider: BRANDEN ARMENTA Report Released Date/Time: January 28, 2023 03:57 PM Reporting Lab: [facility] [address] Performing Lab: [facility] [address] [place] [facility] CBC & DIFF NEUTROPHILS [#/VOLUME] IN BLOOD BY AUTOMATED COUNT 3.43 10*3/u L 2.0 - 7.7 02/02 Specimen Type: BLOOD Comment: Automated Differentia l Performed Ordering Provider: BRANDEN ARMENTA Report Released Date/Time: January 28, 2023 03:57 PM Reporting Lab: [facility] [address] Performing Lab: [facility] [address] [place] [facility] CBC & DIFF EOSINOPHILS [#/VOLUME] IN BLOOD BY AUTOMATED COUNT 0.58 10*3/u L 0 - 0.5 02/02 H Specimen Type: BLOOD Comment: Automated Differentia l Performed Ordering Provider: BRANDEN ARMENTA Report Released Date/Time: January 28, 2023 03:57 PM Reporting Lab: [facility] [address] Performing Lab: [facility] [address] [facility] [facility] CBC & DIFF BASOPHILS [#/VOLUME] IN BLOOD BY AUTOMATED COUNT 0.06 10*3/u L 0 - 0.2 02/02 Specimen Type: BLOOD Comment: Automated Differentia l Performed Ordering Provider: BRANDEN ARMENTA Report Released Date/Time: January 28, 2023 03:57 PM Reporting Lab: [facility] [address] Performing Lab: [facility] [address] [facility] CBC & DIFF IG(META,MYE LO,PRO) 0.1 02/02 Specimen Type: BLOOD Comment: Automated Differentia l Performed Ordering Provider: BRANDEN ARMENTA Report Released Date/Time: January 28, 2023 03:57 PM Reporting Lab: [facility] [address] Performing Lab: [facility] [address] [place] [facility] CBC & DIFF IMMATURE GRANULOCYTE S [PRESENCE] IN BLOOD BY AUTOMATED COUNT 0.01 10*3/u L 0 - 0.1 02/02 Specimen Type: BLOOD Comment: Automated Differentia l Performed Ordering Provider: BRANDEN ARMENTA Report Released Date/Time: January 28, 2023 03:57 PM Reporting Lab: [facility] [address] Performing Lab: [facility] [address] [place] [facility] CBC & DIFF LEUKOCYTES [#/VOLUME] IN BLOOD BY AUTOMATED COUNT 5.76 10*3/u L 4.0 - 11.0 06/28 Specimen Type: BLOOD Comment: Automated Differentia l Performed Ordering Provider: PAM MCKENZIE Report Released Date/Time: Jun 25, 2023 01:19 PM Reporting Lab: [facility] [address] Performing Lab: [facility] [address] [place] [facility] CBC & DIFF ERYTHROCYTE S [#/VOLUME] IN BLOOD BY AUTOMATED COUNT 4.46 10*6/u L 4.0 - 5.4 06/28 Specimen Type: BLOOD Comment: Automated Differentia l Performed Ordering Provider: PAM MCKENZIE Report Released Date/Time: Jun 25, 2023 01:19 PM Reporting Lab: [facility] [address] Performing Lab: [facility] [address] [place] [facility] CBC & DIFF HEMOGLOBIN [MASS/VOLUM E] IN BLOOD 13.7 g/dL 11.5 - 16 06/28 Specimen Type: BLOOD Comment: Automated Differentia l Performed Ordering Provider: PAM MCKENZIE Report Released Date/Time: Jun 25, 2023 01:19 PM Reporting Lab: [facility] [address] Performing Lab: [facility] [address] [place] [facility] CBC & DIFF HEMATOCRIT [VOLUME FRACTION] OF BLOOD BY AUTOMATED COUNT 40.5 34.5 - 48 06/28 Specimen Type: BLOOD Comment: Automated Differentia l Performed Ordering Provider: PAM MCKENZIE Report Released Date/Time: Jun 25, 2023 01:19 PM Reporting Lab: [facility] [address] Performing Lab: [facility] [address] [place] [facility] CBC & DIFF MCV [ENTITIC VOLUME] BY AUTOMATED COUNT 90.8 fL 80 - 100 06/28 Specimen Type: BLOOD Comment: Automated Differentia l Performed Ordering Provider: PAM MCKENZIE Report Released Date/Time: Jun 25, 2023 01:19 PM Reporting Lab: [facility] [address] Performing Lab: [facility] [address] [place] [facility] CBC & DIFF MCH [ENTITIC MASS] BY AUTOMATED COUNT 30.7 pg 27 - 33 06/28 Specimen Type: BLOOD Comment: Automated Differentia l Performed Ordering Provider: PAM MCKENZIE Report Released Date/Time: Jun 25, 2023 01:19 PM Reporting Lab: [facility] [address] Performing Lab: [facility] [address] [place] [facility] CBC & DIFF MCHC [MASS/VOLUM E] BY AUTOMATED COUNT 33.8 g/dL 32.0 - 37.5 06/28 Specimen Type: BLOOD Comment: Automated Differentia l Performed Ordering Provider: PAM MCKENZIE Report Released Date/Time: Jun 25, 2023 01:19 PM Reporting Lab: [facility] [address] Performing Lab: [facility] [address] [place] [facility] CBC & DIFF PLATELETS [#/VOLUME] IN BLOOD BY AUTOMATED COUNT 259 10*3/u L 150 - 400 06/28 Specimen Type: BLOOD Comment: Automated Differentia l Performed Ordering Provider: PAM MCKENZIE Report Released Date/Time: Jun 25, 2023 01:19 PM Reporting Lab: [facility] [address] Performing Lab: [facility] [address] [place] [facility] CBC & DIFF PLATELET MEAN VOLUME [ENTITIC VOLUME] IN BLOOD BY AUTOMATED COUNT 9.5 fL 7.4 - 10.4 06/28 Specimen Type: BLOOD Comment: Automated Differentia l Performed Ordering Provider: PAM MCKENZIE Report Released Date/Time: Jun 25, 2023 01:19 PM Reporting Lab: [facility] [address] Performing Lab: [facility] [address] [place] [facility] CBC & DIFF NEUTROPHILS /100 LEUKOCYTES IN BLOOD BY MANUAL COUNT 60.2 40.0 - 80.0 10/13 /2023 Specimen Type: BLOOD Comment: Automated Differentia l Performed Ordering Provider: PAM MCKENZIE Report Released Date/Time: Jun 25, 2023 01:19 PM Reporting Lab: [facility] [address] Performing Lab: [facility] [address] [place] [facility] CBC & DIFF LYMPHOCYTES /100 LEUKOCYTES IN BLOOD BY MANUAL COUNT 31.3 15.0 - 45.0 06/28 Specimen Type: BLOOD Comment: Automated Differentia l Performed Ordering Provider: PAM MCKENZIE Report Released Date/Time: Jun 25, 2023 01:19 PM Reporting Lab: [facility] [address] Performing Lab: [facility] [address] [place] [facility] CBC & DIFF MONOCYTES/1 00 LEUKOCYTES IN BLOOD BY AUTOMATED COUNT 5.2 2.0 - 12.0 06/28 Specimen Type: BLOOD Comment: Automated Differentia l Performed Ordering Provider: PAM MCKENZIE Report Released Date/Time: Jun 25, 2023 01:19 PM Reporting Lab: [facility] [address] Performing Lab: [facility] [address] [place] [facility] CBC & DIFF EOSINOPHILS /100 LEUKOCYTES IN BLOOD BY AUTOMATED COUNT 2.3 0.0 - 6.0 06/28 Specimen Type: BLOOD Comment: Automated Differentia l Performed Ordering Provider: APM MCKENZIE Report Released Date/Time: Jun 25, 2023 01:19 PM Reporting Lab: [facility] [address] Performing Lab: [facility] [address] [place] [facility] CBC & DIFF BASOPHILS/1 00 LEUKOCYTES IN BLOOD BY MANUAL COUNT 1.0 0.0 - 2.0 06/28 Specimen Type: BLOOD Comment: Automated Differentia l Performed Ordering Provider: PAM MCKENZIE Report Released Date/Time: Jun 25, 2023 01:19 PM Reporting Lab: [facility] [address] Performing Lab: [facility] [address] [place] [facility] CBC & DIFF ERYTHROCYTE DISTRIBUTIO N WIDTH [RATIO] BY AUTOMATED COUNT 12.2 11.5 - 14.5 06/28 Specimen Type: BLOOD Comment: Automated Differentia l Performed Ordering Provider: PAM MCKENZIE Report Released Date/Time: Jun 25, 2023 01:19 PM Reporting Lab: [facility] [address] Performing Lab: [facility] [address] [place] [facility] CBC & DIFF LYMPHOCYTES [#/VOLUME] IN BLOOD BY AUTOMATED COUNT 1.80 10*3/u L 1.0 - 4.0 06/28 Specimen Type: BLOOD Comment: Automated Differentia l Performed Ordering Provider: PAM MCKENZIE Report Released Date/Time: Jun 25, 2023 01:19 PM Reporting Lab: [facility] [address] Performing Lab: [facility] [address] [place] [facility] CBC & DIFF MONOCYTES [#/VOLUME] IN BLOOD BY AUTOMATED COUNT 0.30 10*3/u L 0.1 - 1.0 06/28 Specimen Type: BLOOD Comment: Automated Differentia l Performed Ordering Provider: PAM MCKENZIE Report Released Date/Time: Jun 25, 2023 01:19 PM Reporting Lab: [facility] [address] Performing Lab: [facility] [address] [place] [facility] CBC & DIFF NEUTROPHILS [#/VOLUME] IN BLOOD BY AUTOMATED COUNT 3.47 10*3/u L 2.0 - 7.7 06/28 Specimen Type: BLOOD Comment: Automated Differentia l Performed Ordering Provider: PAM MCKENZIE Report Released Date/Time: Jun 25, 2023 01:19 PM Reporting Lab: [facility] [address] Performing Lab: [facility] [address] [place] [facility] CBC & DIFF EOSINOPHILS [#/VOLUME] IN BLOOD BY AUTOMATED COUNT 0.13 10*3/u L 0 - 0.5 06/28 Specimen Type: BLOOD Comment: Automated Differentia l Performed Ordering Provider: PAM MCKENZIE Report Released Date/Time: Jun 25, 2023 01:19 PM Reporting Lab: [facility] [address] Performing Lab: [facility] [address] [place] [facility] CBC & DIFF BASOPHILS [#/VOLUME] IN BLOOD BY AUTOMATED COUNT 0.06 10*3/u L 0 - 0.2 06/28 Specimen Type: BLOOD Comment: Automated Differentia l Performed Ordering Provider: PAM MCKENZIE Report Released Date/Time: Jun 25, 2023 01:19 PM Reporting Lab: [facility] [address] Performing Lab: [facility] [address] [place] [facility] CBC & DIFF IG(META,MYE LO,PRO) 0.0 06/28 Specimen Type: BLOOD Comment: Automated Differentia l Performed Ordering Provider: PAM MCKENZIE Report Released Date/Time: Jun 25, 2023 01:19 PM Reporting Lab: [facility] [address] Performing Lab: [facility] [address] [place] [facility] CBC & DIFF IMMATURE GRANULOCYTE S [PRESENCE] IN BLOOD BY AUTOMATED COUNT 0.00 10*3/u L 0 - 0.1 06/28 Specimen Type: BLOOD Comment: Automated Differentia l Performed Ordering Provider: PAM MCKENZIE Report Released Date/Time: Jun 25, 2023 01:19 PM Reporting Lab: [facility] [address] Performing Lab: [facility] [address] [place] [facility] PROTHROMB IN TIME/INR INR IN PLATELET POOR PLASMA BY COAGULATION ASSAY 1.0 0.8 - 1.1 06/28 Specimen Type: PLASMA Comment: Automated Differentia l Performed Ordering Provider: PAM MCKENZIE Report Released Date/Time: Jun 25, 2023 01:19 PM Reporting Lab: [facility] [address] Performing Lab: [facility] [address] [place] [facility] PROTHROMB IN TIME/INR PROTHROMBIN TIME (PT) 11.6 s 9.4 - 12.5 06/28 Specimen Type: PLASMA Comment: Automated Differentia l Performed Ordering Provider: PAM MCKENZIE Report Released Date/Time: Jun 25, 2023 01:19 PM Reporting Lab: [facility] [address] Performing Lab: [facility] [address] [place] [facility] ACT PART THROMBO TIME APTT IN PLATELET POOR PLASMA BY COAGULATION ASSAY 29.2 s 25.1 - 36.5 06/28 Specimen Type: PLASMA Comment: Automated Differentia l Performed Ordering Provider: PAM MCKENZIE Report Released Date/Time: Jun 25, 2023 01:19 PM Reporting Lab: [facility] [address] Performing Lab: [facility] [address] [place] [facility] BASIC METABOLIC PANEL+MG CREATININE [MASS/VOLUM E] IN SERUM OR PLASMA 0.8 mg/dL 0.5 - 1.0 06/28 Specimen Type: PLASMA No comment entered. Ordering Provider: PAM MCKENZIE Report Released Date/Time: Jun 25, 2023 01:19 PM Reporting Lab: [facility] [address] Performing Lab: [facility] [address] [place] [facility] BASIC METABOLIC PANEL+MG UREA NITROGEN [MASS/VOLUM E] IN SERUM OR PLASMA 22 mg/dL 7 - 20 06/28 H Specimen Type: PLASMA No comment entered. Ordering Provider: PAM MCKENZIE Report Released Date/Time: Jun 25, 2023 01:19 PM Reporting Lab: [facility] [address] Performing Lab: [facility] [address] [place] [facility] BASIC METABOLIC PANEL+MG GLUCOSE [MASS/VOLUM E] IN SERUM OR PLASMA 95 mg/dL 70 - 100 06/28 Specimen Type: PLASMA No comment entered. Ordering Provider: PAM MCKENZIE Report Released Date/Time: Jun 25, 2023 01:19 PM Reporting Lab: [facility] [address] Performing Lab: [facility] [address] [place] [facility] BASIC METABOLIC PANEL+MG SODIUM [MOLES/VOLU ME] IN SERUM OR PLASMA 141 mmol/L 136 - 145 06/28 Specimen Type: PLASMA No comment entered. Ordering Provider: PAM MCKENZIE Report Released Date/Time: Jun 25, 2023 01:19 PM Reporting Lab: [facility] [address] Performing Lab: [facility] [address] [place] [facility] BASIC METABOLIC PANEL+MG POTASSIUM [MOLES/VOLU ME] IN SERUM OR PLASMA 3.9 mmol/L 3.5 - 5.1 06/28 Specimen Type: PLASMA No comment entered. Ordering Provider: PAM MCKENZIE Report Released Date/Time: Jun 25, 2023 01:19 PM Reporting Lab: [facility] [address] Performing Lab: [facility] [address] [place] [facility] BASIC METABOLIC PANEL+MG CHLORIDE [MOLES/VOLU ME] IN SERUM OR PLASMA 107 mmol/L 98 - 107 06/28 Specimen Type: PLASMA No comment entered. Ordering Provider: PAM MCKENZIE Report Released Date/Time: Jun 25, 2023 01:19 PM Reporting Lab: [facility] [address] Performing Lab: [facility] [address] [place] [facility] BASIC METABOLIC PANEL+MG CARBON DIOXIDE, TOTAL [MOLES/VOLU ME] IN SERUM OR PLASMA 24 mmol/L 22 - 29 06/28 Specimen Type: PLASMA No comment entered. Ordering Provider: PAM MCKENZIE Report Released Date/Time: Jun 25, 2023 01:19 PM Reporting Lab: [facility] [address] Performing Lab: [facility] [address] [place] [facility] BASIC METABOLIC PANEL+MG CALCIUM [MASS/VOLUM E] IN SERUM OR PLASMA 9.4 mg/dL 8.4 - 10.2 06/28 Specimen Type: PLASMA No comment entered. Ordering Provider: PAM MCKENZIE Report Released Date/Time: Jun 25, 2023 01:19 PM Reporting Lab: [facility] [address] Performing Lab: [facility] [address] [place] [facility] BASIC METABOLIC PANEL+MG MAGNESIUM [MASS/VOLUM E] IN SERUM OR PLASMA 2.2 mg/dL 1.6 - 2.6 06/28 Specimen Type: PLASMA No comment entered. Ordering Provider: PAM MCKENZIE Report Released Date/Time: Jun 25, 2023 01:19 PM Reporting Lab: [facility] [address] Performing Lab: [facility] [address] [place] [facility] BASIC METABOLIC PANEL+MG ANION GAP IN SERUM OR PLASMA 10 mmol/L 5 - 15 06/28 Specimen Type: PLASMA No comment entered. Ordering Provider: PAM MCKENZIE Report Released Date/Time: Jun 25, 2023 01:19 PM Reporting Lab: [facility] [address] Performing Lab: [facility] [address] [place] [facility] BASIC METABOLIC PANEL+MG GLOMERULAR FILTRATION RATE/1.73 SQ M.PREDICTED [VOLUME RATE/AREA] IN SERUM, PLASMA OR BLOOD BY CREATININE- BASED FORMULA (CKD-EPI 2020) 88 60 06/28 Specimen Type: PLASMA No comment entered. Ordering Provider: PAM MCKENZIE Report Released Date/Time: Jun 25, 2023 01:19 PM Reporting Lab: [facility] [address] Performing Lab: [facility] [address] [place] [facility] LIPID PANEL,NON -FASTING CHOLESTEROL [MASS/VOLUM E] IN SERUM OR PLASMA 160 mg/dL <199 - 199 01/28 Specimen Type: PLASMA No comment entered. Ordering Provider: BRANDEN ARMENTA Report Released Date/Time: January 28, 2023 03:57 PM Reporting Lab: [facility] [address] Performing Lab: [facility] [address] [place] [facility] LIPID PANEL,NON -FASTING CHOLESTEROL IN HDL [MASS/VOLUM E] IN SERUM OR PLASMA 61 mg/dL 50 01/28 Specimen Type: PLASMA No comment entered. Ordering Provider: BRANDEN ARMENTA Report Released Date/Time: January 28, 2023 03:57 PM Reporting Lab: [facility] [address] Performing Lab: [facility] [address] [place] [facility] LIPID PANEL,NON -FASTING CHOLESTEROL IN LDL [MASS/VOLUM E] IN SERUM OR PLASMA BY CALCULATION 83 mg/dL <99 - 99 01/28 Specimen Type: PLASMA No comment entered. Ordering Provider: BRANDEN ARMENTA Report Released Date/Time: January 28, 2023 03:57 PM Reporting Lab: [facility] [address] Performing Lab: [facility] [address] [place] [facility] LIPID PANEL,NON -FASTING CHOLESTEROL IN VLDL [MASS/VOLUM E] IN SERUM OR PLASMA BY CALCULATION 16 mg/dL <29 - 29 01/28 Specimen Type: PLASMA No comment entered. Ordering Provider: BRANDEN ARMENTA Report Released Date/Time: January 28, 2023 03:57 PM Reporting Lab: [facility] [address] Performing Lab: [facility] [address] [place] [facility] LIPID PANEL,NON -FASTING CHOLESTEROL NON HDL [MASS/VOLUM E] IN SERUM OR PLASMA 99 mg/dL <129 - 129 01/28 Specimen Type: PLASMA No comment entered. Ordering Provider: BRANDEN ARMENTA Report Released Date/Time: January 28, 2023 03:57 PM Reporting Lab: [facility] [address] Performing Lab: [facility] [address] [place] [facility] LIPID PANEL,NON -FASTING TRIGLYCERID E [MASS/VOLUM E] IN SERUM OR PLASMA 81 mg/dL <149 - 149 01/28 Specimen Type: PLASMA No comment entered. Ordering Provider: BRANDEN ARMENTA Report Released Date/Time: January 28, 2023 03:57 PM Reporting Lab: [facility] [address] Performing Lab: [facility] [address] [place] [facility] Vital Signs Combined list of inpatient and outpatient Vital Signs from Department of Defense and Veterans Affairs, ranging from 12 months to all on record, depending upon the facility. Vital Sign Value Date Comments Source SYSTOLIC BLOOD PRESSURE 126 02/03/2024 08:14:26 [facility] DIASTOLIC BLOOD PRESSURE 85 02/03/2024 08:14:26 [facility] PULSE OXIMETRY 99 02/03/2024 08:14:26 [facility] WE[facility] 172 02/03/2024 08:14:26 [facility] BMI 28kg/m2 02/03/2024 08:14:26 [facility] PAIN 0 02/03/2024 08:14:26 [facility] HEIGHT 66 02/03/2024 08:14:26 [facility] PULSE 66 02/03/2024 08:14:26 [facility] RESPIRATION 14 02/03/2024 08:14:26 [facility] Encounters Combined list of: 1) Encounters from Department of Veterans Affairs facilities going back up to thelast 18 months. 2) Encounters from the Department of Defense facilities going back up to 280 months. Location Location Details Encounter Type Encounter Number Reason For Visit Attending Provider ADM Date DC Date Status Disposition Source [facility](Ph ysical Exam Daniele ) OUTPATIENT [id number] RCPHA REVIEW LUIS A RUTH 08/11 Released w/o Limitations [facility]( Physica l Exam Diloren zo) [facility](Im munizatio n DI) OUTPATIENT [id number] SANDRA SPENCE 11/09 Released w/o Limitations [facility]( Immuniz ation DI) [facility](Ph ysical Exam Daniele ) OUTPATIENT [id number] [employer] [facility] [facility]OS CL [place] 11/09 Released w/o Limitations [facility]( Physica l Exam Diloren zo) [facility](Im munizatio n DI) OUTPATIENT [id number] SANDRA SPENCE 11/16 Released w/o Limitations [facility]( Immuniz ation DI) [facility](Ph ysical Exam Daniele ) OUTPATIENT [id number] af CL oRlon 12/09 Released w/o Limitations [facility]( Physica l Exam Diloren zo) [facility](Im munizatio n DI) OUTPATIENT [id number] LETY FRAIRE 12/09 Released w/o Limitations [facility]( Immuniz ation DI) [facility](Al lergy Daniele ) OUTPATIENT [id number] flu PURNIMALETY 07/04 Released w/o Limitations [facility]( Allergy Diloren zo) [facility](Op erational Medicine MG) OUTPATIENT [id number] pha henri DORIAN PRICE 04/26 Released w/o Limitations [facility]( Operati onal Medicin e MG) [facility](Tevin lling PHA) OUTPATIENT [id number] [facility] Res PHA SANDRA JEFFREY Nuvia 04/04 Released w/o Limitations [facility]( Polo PHA) [facility](Fa [facility] Med Cl Team C_Non-AD) OUTPATIENT [id number] Isreal estrada. for vaccshanti mccarty AJKE BILLS 04/08 Released w/o Limitations [facility]( Family Med Cl Team C_Non-A D) [facility](Lenny manning MG) OUTPATIENT [id number] Pt needs to request Profile LAUREISAIAH VAZQUEZ 02/27 Released with Work/Duty Limitations [facility]( Rueter s MG) [facility](Im munizatio n DI) OUTPATIENT [id number] Notes Entered by: Melida BOLAÑOS 20 Apr 2013 1517 ------- ------- ------- ------- -- Update ISHMAEL BOTELLO 04/20 Released w/o Limitations [facility]( Immuniz ation DI) [facility](Tevin lling PHA) OUTPATIENT [id number] PHA RESERVE KHRIS VOGEL 04/22 Released w/o Limitations [facility]( Polo PHA) [facility] OUTPATIENT [id number] Notes Entered by: YOHANNES GUERRERO 26 Apr 2014 0851 ------- ------- ------- ------- -- HAIDER WALLACE 04/26 Released w/o Limitations [facility] OUTPATIENT [id number] Notes Entered by: DOUG KRAFT 20 Apr 2015 1503 ------- ------- ------- ------- -- SOFIE CLAROS 04/20 Released w/o Limitations [facility]) [facility](Base Operation al Medicine Cell) OUTPATIENT [id number] [facility]/[id number] GIANNA BECKER 05/03 Released w/o Limitations [facility](Bas e Operati onal Medicin e Cell) [facility] OFFICE O/P EST HI 40-54 MIN [id number] Diagnos is: ICD-10- CM R06.83 Snoring
Demetrius CLIFTON 01/28 [facility] Outpatient Encounter [id number] 03/11 [facility] Outpatient Encounter [id number] Diagnos is: ICD-10- CM E66.3 Overwei ght<br/ > VANESSA WILLSON 03/20 [facility] Outpatient Encounter [id number] 05/24 [facility] OFFICE O/P EST SF 10-19 MIN [id number] Diagnos is: ICD-10- CM J34.2 Deviate d nasal septum< br/> PAM MCKENZIE 06/21 [facility] Outpatient Encounter [id number] 06/21 [facility] ELECTROCAR DIOGRAM COMPLETE [id number] Diagnos is: ICD-10- CM Z13.6 Encount er for screeni ng for cardiov ascular disorde rs
KATYA GARCIA 06/28 [facility] OFFICE O/P EST MOD 30-39 MIN [id number] Diagnos is: ICD-10- CM Z01.818 Encount er for other preproc edural examina tion
EDI CALABRESE 06/28 [facility] [place] [facility] PT EDUCATION NOC INDIVID [id number] Diagnos is: ICD-10- CM Z71.89 Other specifi ed evp general counsel ing<br/ > JUSTINALULIJW ATA V 06/28 [facility] [place] [facility] Outpatient Encounter [id number] 07/01 [facility] [place] [facility] Outpatient Encounter [id number] JOSE MONROY ZENY P 07[facility]01 [facility] Out[facility] Encounter [id number] 08/06 [facility] [place] [facility] Outpatient Encounter [id number] 02/01 [facility] OFFICE O/P EST MOD 30 MIN [id number] Diagnos is: ICD-10- CM J34.2 Deviate d nasal septum< br/> OTTO KERR 02/02 [facility] Procedures Combined list of: 1) Procedures from Department of [facility] Affairs facilities going back up to thelast 18 months, not all [place] non-surgical procedures are included; 2) All procedures from the Department of Defense facilities. Procedure Procedure Type Code Date Perfomer Comments Sour e Preventive Medicine Administration Of Health Risk Questionnaire Patient-Focused Preventive Medicine Administration Of Health Risk Questionnaire Patient-Focused 29233 05/03/2017 GIANNA BECKER [facility] Immunization Administration By Injection, One Vaccine Immunization Administration By Injection, One Vaccine 59812 07/04/2010 LETY FELTON [facility] Influenza Split Virus Vaccine 0.5mL Dosage Intramuscular 07/04/2010 LETY FELTON [facility] ECG Performance of Tracing Only ECG Performance of Tracing Only 48006 11/09/2008 CL LIMA [facility] ONLINE ASSESS &MANAG SERV PROVIDE,A QUAL NONPHYS HCP TO AN ESTABLISHED PAT/GUARDIAN,NOT ORIGINAT FRM RELAT ASSESS &MANAG SERV PROVIDE W/IN THE PREV 7 DAYS,USE THE [employer] NETWORK 05/03/2017 [facility] POSTOPERATIVE FOLLOW-UP VISIT, NORMALLY INCLUDED IN THE SURGICAL PACKAGE, INDICATE THAT EVALUATION & MANAGEMENT SERVICE WAS PERFORMED DURING A POSTOPERATIVE PERIOD REASON RELATED ORIGINAL PROCEDURE 02/15/2004 [facility] CERVICAL OR VAGINAL CANCER SCREENING; PELVIC AND CLINICAL BREAST EXAMINATION 02/15/2004 [facility] REPAIR, INTERMEDIATE, WOUNDS OF SCALP, AXILLAE, TRUNK AND/OR EXTREMITIES (EXCLUDING HANDS AND FEET); 2.5 CM OR LESS 02/04/2004 [facility] INJECTION OF RH IMMUNE GLOBULIN 02/08/2003 [facility] REPAIR OF OTHER CURRENT OBSTETRIC LACERATION 02/08/2003 [facility] ECHOCARDIOGRAPHY, , CARDIOVASCULAR SYSTEM, REAL TIME WITH IMAGE DOCUMENTATION (2D) WITH OR WITHOUT M-MODE RECORDING; 02/04/2003 [facility] UNLISTED PROCEDURE, MATERNITY CARE AND DELIVERY 01/22/2003 [facility] ECHOCARDIOGRAPHY, , CARDIOVASCULAR SYSTEM, REAL TIME WITH IMAGE DOCUMENTATION (2D) WITH OR WITHOUT M-MODE RECORDING; 01/11/2003 [facility] UNLISTED CHEMISTRY PROCEDURE 01/01/2003 [facility] ECHOCARDIOGRAPHY, , CARDIOVASCULAR SYSTEM, REAL TIME WITH IMAGE DOCUMENTATION (2D) WITH OR WITHOUT M-MODE RECORDING; 10/26/2002 [facility] ECHOCARDIOGRAPHY, , CARDIOVASCULAR SYSTEM, REAL TIME WITH IMAGE DOCUMENTATION (2D) WITH OR WITHOUT M-MODE RECORDING; 09/28/2002 [facility] CERVICAL OR VAGINAL CANCER SCREENING; PELVIC AND CLINICAL BREAST EXAMINATION 07/02/2002 [facility] CYTOPATHOLOGY, SMEARS, CERVICAL OR VAGINAL, UP TO THREE SMEARS; SCREENING BY PASTRY CHEF UNDER PHYSICIAN SUPERVISION 09/10/2001 [facility] VACCINATION AGAINST RUBELLA 07/28/2001 [facility] EPISIOTOMY 07/28/2001 [facility] OTHER MONITORING 07/28/2001 [facility] NON-STRESS TEST 07/25/2001 [facility] CEREBRAL VASCULAR FLOW 07/18/2001 [facility] ECHOCARDIOGRAPHY, , CARDIOVASCULAR SYSTEM, REAL TIME WITH IMAGE DOCUMENTATION (2D) WITH OR WITHOUT M-MODE RECORDING; 07/17/2001 [facility] NON-STRESS TEST 07/15/2001 [facility] NON-STRESS TEST 07/11/2001 [facility] ECHOCARDIOGRAPHY, , CARDIOVASCULAR SYSTEM, REAL TIME WITH IMAGE DOCUMENTATION (2D) WITH OR WITHOUT M-MODE RECORDING; 07/09/2001 [facility] CEREBRAL VASCULAR FLOW 07/04/2001 [facility] CEREBRAL VASCULAR FLOW 07/01/2001 [facility] CEREBRAL VASCULAR FLOW 06/27/2001 [facility] NON-STRESS TEST 06/24/2001 [facility] UNLISTED PROCEDURE, MATERNITY CARE AND DELIVERY 06/20/2001 [facility] OBSTETRIC PANEL 06/18/2001 [facility] ECHOCARDIOGRAPHY, , CARDIOVASCULAR SYSTEM, REAL TIME WITH IMAGE DOCUMENTATION (2D) WITH OR WITHOUT M-MODE RECORDING; 06/02/2001 [facility] ECHOCARDIOGRAPHY, , CARDIOVASCULAR SYSTEM, REAL TIME WITH IMAGE DOCUMENTATION (2D) WITH OR WITHOUT M-MODE RECORDING; 05/16/2001 [facility] EDUCATIONAL SUPPLIES, SUCH BOOKS, TAPES, AND PAMPHLETS, FOR THE PATIENT'S EDUCATION AT COST TO PHYSICIAN OR OTHER QUALIFIED HEALTH TAG MAKER 03/28/2001 [facility] PHYS/OTH QUALIFIED HEALTH TAG MAKER QUALIFIED,EDUCATION, TRAIN,LICENSURE/REGU LATION (WHEN APPLICABLE) EDUC SER RENDERED TO PATS IN A GRP SETTING (EG,,OBESITY ,OR DIABETIC INSTRUCT) 01/24/2001 [facility] INFLUENZA VIRUS VACCINE, TRIVALENT (IIV3), SPLIT VIRUS, 0.5 ML DOSAGE, FOR INTRAMUSCULAR USE 07/04/2010 [facility] ELECTROCARDIOGRAM, ROUTINE ECG WITH AT LEAST 12 LEADS; TRACING ONLY, WITHOUT INTERPRETATION AND REPORT 11/09/2008 [facility] IMMUNIZATION ADMINISTRATION BY INTRANASAL OR ORAL ROUTE; 1 VACCINE (SINGLE OR COMBINATION VACCINE/TOXOID) 08/22/2006 [facility] INTRACUTANEOUS (INTRADERMAL) TESTS WITH ALLERGENIC EXTRACTS, DELAYED TYPE REACTION, INCLUDING READING, SPECIFY NUMBER OF TESTS 05/30/2006 [facility] IMMUNIZATION ADMINISTRATION (INCLUDES PERCUTANEOUS, INTRADERMAL, SUBCUTANEOUS, OR INTRAMUSCULAR INJECTIONS); 1 VACCINE (SINGLE OR COMBINATION VACCINE/TOXOID) 04/15/2006 [facility] Social History Combined list of available smoking, tobacco, and other social history from [facility] of Defense and [facility] facilities. Social History Type Response Date Comment Sourc e Tobacco smoking status ALIS VA-TOBACCO NEVER USED 02/02/2024 [facility] History of tobacco use VA-TOBACCO NEVER USED 01/28/2023 [facility] History of tobacco use VA-TOBACCO NEVER USED 12/25/2021 [facility] This section is an empty social history section. [facility]
--- NOTE | 2024-07-29 08:15 | CRLHL7_ITS ---
For Patients: As a result of the Cures Act, medical imaging exams and procedure reports are released immediately into your electronic medical record. You may view this report before your referring provider. If you have questions, please contact your health care provider. PLEASE SEE DIGITAL DIAGNOSTIC RIGHT MAMMOGRAM PERFORMED SAME DAY CRL:mattie phelps/Dictated by: Trung Austin MD @ 07/29/2024 10:44:00 AM (Electronically Signed)
== END 2024-07-29 07:46 | disposition home or self-care (01) ==
LOC: MAMMO 07:46
PROVIDERS: PCP Emergency Medicine; Visit Provider Emergency Medicine
DX: N63.10 Unspecified lump in the right breast, unspecified quadrant (principal); R92.8 Other abnormal and inconclusive findings on diagnostic imaging of breast
CPT/HCPCS: 76642; 77065; G0279

== ENCOUNTER 2024-08-03 11:15 | Outpatient (CLI) | payer OTHER, SELFPAY ==
--- NOTE | 2024-08-03 11:15 | CRLHL7_ITS ---
For Patients: As a result of the Century Cures Act, medical imaging exams and procedure reports are released immediately into your electronic medical record. You may view this report before your referring provider. If you have questions, please contact your health care provider. ULTRASOUND-GUIDED BREAST BIOPSY AND POST-BIOPSY DIGITAL MAMMOGRAM FOR BIOPSY MARKER PLACEMENT CLINICAL HISTORY: Indeterminate nodule. COMPARISON STUDIES: 07/29/2024, 07/17/2024. TECHNIQUE: Real-time ultrasound with image documentation was used for targeting the breast lesion. Core biopsy specimens were obtained using an automated gun with an 18-gauge biopsy needle. Post-biopsy CC and ML digital mammograms were obtained to document position of the biopsy marker. CONSENT and TIME OUT: The procedure, risks, and alternatives were explained to the patient and a consent was signed. [place] Protocol was followed including pre-procedure verification that relevant information/documentation was available, reviewed and properly matched to the patient; consent accurate and complete; and equipment and supplies available. Time Out was conducted just prior to starting procedure to verify the four required elements: patient identity, correct side/site marked (if applicable), procedure, relevant images/results properly labeled and displayed (if applicable). PROCEDURE: The patient was positioned supine on the ultrasound table. The breast was prepped with ChloraPrep. 6 cc of 1 percent lidocaine used for local anesthesia. Core samples were obtained. A sterile metal biopsy clip was placed percutaneously to darrell the lesion position within the breast. The specimens were placed in 10% formalin and sent to the pathology department. Pressure was held on the biopsy site until all bleeding subsided. The skin incision was closed with Steri-Strips. An ice pack was positioned over the biopsy site. Post-biopsy instructions were reviewed with the patient, and a written copy was given to her. LATERALITY: RIGHT breast. LESION: Hypoechoic nodule measuring 6 millimeters at 9 o`clock 2 cm from the nipple. SUSPICION FOR MALIGNANCY: Low. NUMBER OF SAMPLES: 5. BIOPSY CLIP SHAPE: Oval. PROXIMITY OF CLIP TO TARGET: Adjacent to the lesion. IMPRESSION: Ultrasound-guided breast biopsy. When the pathology report is available, an addendum to this report will be made. ACR not applicable Dictated by Trung Austin MD @ 08/03/2024 12:14:02 PM jj/Dictated by: Trung Austin MD @ 08/03/2024 12:14:00 PM (Electronically Signed)
--- OUTSIDE RECORDS SUMMARY | 2024-08-03 11:17 | XMS_ITS | Continuity of Care Document ---
Author Name [facility] Organization [facility] Care Team Providers Care As400 Operator Name Role Phone [facility] Unavailable Unavailable Problems Combined list of problems from Department of Defense and Veterans Affairs facilities. It does not include entries that were removed or entered in error. Problem Status Onset Date Problem Type Date of Resolution Comments Source Exposure to potentially hazardous substance (SCT [id number]) Active 11/21/19 24 Condition Nov 21, 2023 Entered By: WENDY MACKEY Comment: [facility] Documentation Initiative [facility] Shingles Inactive 09/16/19 12 Condition 06/08/2019 Jun 08, 2019 Entered By: HAILE HALE Comment: history of shingles of R face. No occular involvement, but gets annual eye exam due to proximity. Vaccine at 48 y/o. [facility] visit for: administrative purpose Inactive Condition [facility] lumbar radiculopathy Active Condition [facility] Physical Examination Inactive Condition [facility] Need For Vaccination Against Influenza Inactive Condition [facility] normal Inactive Condition pt has EDC of August 30, 2007. [facility] visit for: services physical Active Condition [facility] Bunion Active Condition [facility] Deviated nasal septum Active Condition [facility] Shingles Active Condition Mar 15 22 Entered By: HIALE HALE Comment: history of prior shingles [facility] Snoring Active Condition [facility] Diagnosis: ICD-10-CM J34.2 Deviated nasal septum Active Diagnosis [facility] Diagnosis: ICD-10-CM Z71.89 Other specified counseling Active Diagnosis [facility] Diagnosis: ICD-10-CM Z01.818 Encounter for other preprocedural examination Active Diagnosis [facility] Diagnosis: ICD-10-CM Z13.6 Encounter for screening for cardiovascular disorders Active Diagnosis [facility] Diagnosis: ICD-10-CM E66.3 Overweight Active Diagnosis [facility] Allergies, Adverse Reactions, Alerts Combined list of allergies from Department of Defense and Veterans Affairs facilities. It does not include entries that were removed or entered in error. Substance Category Reaction Severity Reaction type Status Date Reported Comments Source No Known Allergies Drug allergy (disorder) active 11/09/2008 [facility] Immunizations Combined list of available immunizations from the Department of Defense and Veterans Affairs facilities. Immunization Series Date Given Administered By Site Reaction Lot Number CVX Code Drug Foreign Exchange Services Manager Status Comments Source INFLUENZA, INJECTABLE, QUADRIVALENT, PRESERVATIVE FREE 2022 150 complet ed [facility] INFLUENZA, UNSPECIFIED FORMULATION 2022 88 complet ed [facility] INFLUENZA, INJECTABLE, QUADRIVALENT, PRESERVATIVE FREE 2021 150 complet ed [facility] COVID-19 (PFIZER), MRNA, LNP-S, PF, 30 MCG/0.3 ML DOSE, AUNG-SUCROSE (AGES 12+ YEARS) 4 2021 217 complet ed PFR; [id number]; 2 [facility] TDAP 2021 115 complet ed [facility] COVID-19 (PFIZER), MRNA, LNP-S, PF, 30 MCG/0.3 ML DOSE 3 2020 208 complet ed PFR; [id number]; 2 [facility] influenza, recombinant, quadrivalent, injectable, preservative free 2020 MICHAELA, () Not Given influenza , recombina nt, quadrival ent,injec table, preservat lisandra free [facility] INFLUENZA, RECOMBINANT, QUADRIVALENT, INJECTABLE, PRESERVATIVE FREE 2020 185 complet ed [facility] COVID-19 (PFIZER), MRNA, LNP-S, PF, 30 MCG/0.3 ML DOSE 2 2020 208 complet ed PFR; [id number]; 1 [facility] COVID-19 (PFIZER), MRNA, LNP-S, PF, 30 MCG/0.3 ML DOSE 1 2020 208 complet ed PFR; [id number]; 1 [facility] INFLUENZA, INJECTABLE, QUADRIVALENT, PRESERVATIVE FREE 2019 150 complet ed [facility] INFLUENZA, INJECTABLE, QUADRIVALENT, PRESERVATIVE FREE 2018 150 complet ed [facility] INFLUENZA, HIGH DOSE SEASONAL 2018 135 complet ed [facility] ZOSTER RECOMBINANT 2 2018 187 complet ed [facility] ZOSTER RECOMBINANT 1 2018 187 complet ed [facility] INFLUENZA, INJECTABLE, QUADRIVALENT 2017 158 complet ed [facility] influenza virus vaccine, unspecified formulation 1 2016 Unknown, Provider 88 Transcribed (TRS) complet ed influenza virus vaccine, unspecifi ed formulati on [facility] Influenza, seasonal, injectable 1 2015 141 Transcribed (TRS) complet ed Influenza , seasonal, injectabl e DoD INFLUENZA, SEASONAL, INJECTABLE, PRESERVATIVE FREE 2015 140 complet ed [facility] tetanus toxoid, reduced diphtheria toxoid, and acellular pertu is vaccine, adsorbed 3 2015 [id number] [facility] ([facility]) complet ed tetanus toxoid, reduced diphtheri a toxoid, and acellular pertussis vaccine, adsorbed DoD influenza virus vaccine, unspecified formulation 1 2014 88 Transcribed (TRS) complet ed influenza virus vaccine, unspecifi ed formulati on [facility] INFLUENZA, SEASONAL, INJECTABLE, PRESERVATIVE FREE 2014 140 complet ed [facility] hepatitis B vaccine, adult dosage 3 2014 [id number] [employer] ([facility]) complet ed hepatitis B vaccine, adult dosage DoD hepatitis B vaccine, adult dosage 2 2013 [id number] 43 [employer] ([facility]) complet ed hepatitis B vaccine, adult dosage [facility] influenza virus vaccine, unspecified formulation 1 2013 88 Transcribed (TRS) complet ed influenza virus vaccine, unspecifi ed formulati on [facility] hepatitis B vaccine, adult dosage 0 2013 [id number] 43 [employer] ([facility]) complet ed hepatitis B vaccine, adult dosage DoD influenza virus vaccine, live, attenuated, for intranasal use 1 2012 111 Transcribed (TRS) complet ed influenza virus vaccine, live, attenuate d, for intranasa l use [facility] influenza virus vaccine, live, attenuated, for intranasal use 1 2011 111 Transcribed (TRS) complet ed influenza virus vaccine, live, attenuate d, for intranasa l use [facility] Influenza, seasonal, injectable 0 2010 141 Other (OTH) complet ed Influenza , seasonal, injectabl e DoD INFLUENZA, SEASONAL, INJECTABLE 2010 141 complet ed [facility] influenza virus vaccine, split virus (incl. purified surface antigen)-reti red CODE 1 2009 Unknown, Provider [id number] [facility] [employer] ([facility]) complet ed influenza virus vaccine, split virus (incl. purified surface antigen)- retired CODE DoD Novel influenza-H1N 1-09, injectable 1 2008 SOREN MCINTOSH [id number] 127 [employer] [place]. (NOV) complet ed Novel influenza -Q1T0-19, injectabl e DoD Novel influenza-H1N 1-09, all formulations 1 2008 [id number] 1A 128 [employer] [place]. (NOV) complet ed Novel influenza -A4N9-15, all formulati ons DoD tuberculin skin test; purified protein derivative solution, intradermal 0 2008 96 Transcribed (TRS) complet ed tuberculi n skin test; purified protein derivativ e solution, intraderm al DoD influenza virus vaccine, live, attenuated, for intranasal use 1 2008 LILIANE CARMEN [id number] [employer] (MED) complet ed influenza virus vaccine, [...] virus (incl. purified surface antigen)- retired CODE [facility] influenza virus vaccine, unspecified formulation 1 2007 SOREN MCINTOSH [id number] 88 [employer] (SKB) complet ed influenza virus vaccine, unspecifi ed formulati on DoD influenza virus vaccine, live, attenuated, for intranasal use 1 2007 SOREN MCINTOSH [id number] 111 [employer] (MED) complet ed influenza virus vaccine, live, attenuate d, for intranasa l use DoD influenza virus vaccine, split virus (incl. purified surface antigen)-reti red CODE 2 2006 15 Transcribed (TRS) complet ed influenza virus vaccine, split virus (incl. purified surface antigen)- retired CODE DoD influenza virus vaccine, unspecified formulation 1 2005 UNK 88 [employer] (MED) complet ed influenza virus vaccine, unspecifi ed formulati on DoD tetanus toxoid, reduced diphtheria toxoid, and acellular pertu is vaccine, adsorbed 1 2005 UNK 115 San[employer] Paste[employer] ([facility]) complet ed tetanus toxoid, reduced diphtheri a toxoid, and acellular pertussis vaccine, adsorbed DoD influenza virus vaccine, split virus (incl. purified surface antigen)-reti red CODE 1 2002 [id number] 15 [employer] ([employer]) complet ed influenza virus vaccine, split virus (incl. purified surface antigen)- retired CODE DoD influenza virus vaccine, whole virus 1 2002 Unknown, Provider [id number] [employer] ([employer]) complet ed influenza virus vaccine, whole virus DoD tuberculin skin test; purified protein derivative solution, intradermal 1 2001 Unknown, Provider [id number] [facility] ([facility]) complet ed tuberculi n skin test; purified protein derivativ e solution, intraderm al DoD influenza virus vaccine, whole virus 0 2001 [id number] Sanofi Pasteur ([facility]) complet ed influenza virus vaccine, whole [...] January 28, 2023 03:57 PM Reporting Lab: [facility] [address] Performing Lab: [facility] [address] [facility] LIVER FUNCTION TESTS ALKALINE PHOSPHATASE [ENZYMATIC ACTIVITY/VO LUME] IN SERUM OR PLASMA 117 U/L 40 - 150 02/02 Specimen Type: PLASMA No comment entered. Ordering Provider: BRANDEN ARMENTA Report Released Date/Time: January 28, 2023 03:57 PM Reporting Lab: [facility] [address] Performing Lab: [facility] [address] [facility] LIVER FUNCTION TESTS ALANINE AMINOTRANSF ERASE [ENZYMATIC ACTIVITY/VO LUME] IN SERUM OR PLASMA 23 U/L <55 - 55 02/02 Specimen Type: PLASMA No comment entered. Ordering Provider: BRANDEN ARMENTA Report Released Date/Time: January 28, 2023 03:57 PM Reporting Lab: [facility] [address] Performing Lab: [facility] [address] [place] [facility] LIVER FUNCTION TESTS ASPARTATE AMINOTRANSF ERASE [ENZYMATIC ACTIVITY/VO LUME] IN SERUM OR PLASMA 20 U/L <34 - 34 02/02 Specimen Type: PLASMA No comment entered. Ordering Provider: BRANDEN ARMENTA Report Released Date/Time: January 28, 2023 03:57 PM Reporting Lab: [facility] [address] Performing Lab: [facility] [address] [place] [facility] LIVER FUNCTION TESTS GAMMA GLUTAMYL TRANSFERASE [ENZYMATIC ACTIVITY/VO LUME] IN SERUM OR PLASMA 65 U/L <36 - 36 02/02 H Specimen Type: PLASMA No comment entered. Ordering Provider: BRANDEN ARMENTA Report Released Date/Time: January 28, 2023 03:57 PM Reporting Lab: [facility] [address] Performing Lab: [facility] [address] [place] [facility] BASIC METABOLIC PANEL+MG CREATININE [MASS/VOLUM E] IN SERUM OR PLASMA 0.9 mg/dL 0.5 - 1.0 02/02 Specimen Type: PLASMA No comment entered. Ordering Provider: BRANDEN ARMENTA Report Released Date/Time: January 28, 2023 03:57 PM Reporting Lab: [facility] [address] Performing Lab: [facility] [address] [place] [facility] BASIC METABOLIC PANEL+MG UREA NITROGEN [MASS/VOLUM E] IN SERUM OR PLASMA 14 mg/dL 7 - 20 02/02 Specimen Type: PLASMA No comment entered. Ordering Provider: BRANDEN ARMENTA Report Released Date/Time: January 28, 2023 03:57 PM Reporting Lab: [facility] [address] Performing Lab: [facility] [address] [place] [facility] BASIC METABOLIC PANEL+MG GLUCOSE [MASS/VOLUM E] IN SERUM OR PLASMA 92 mg/dL 70 - 100 02/02 Specimen Type: PLASMA No comment entered. Ordering Provider: BRANDEN ARMENTA Report Released Date/Time: January 28, 2023 03:57 PM Reporting Lab: [facility] [address] Performing Lab: [facility] [address] [place] [facility] BASIC METABOLIC PANEL+MG SODIUM [MOLES/VOLU ME] IN SERUM OR PLASMA 142 mmol/L 136 - 145 02/02 Specimen Type: PLASMA No comment entered. Ordering Provider: BRANDEN ARMENTA Report Released Date/Time: January 28, 2023 03:57 PM Reporting Lab: [facility] [address] Performing Lab: [facility] [address] [place] [facility] BASIC METABOLIC PANEL+MG POTASSIUM [MOLES/VOLU ME] IN SERUM OR PLASMA 3.9 mmol/L 3.5 - 5.1 02/02 Specimen Type: PLASMA No comment entered. Ordering Provider: BRANDEN ARMENTA Report Released Date/Time: January 28, 2023 03:57 PM Reporting Lab: [facility] [address] Performing Lab: [facility] [address] [place] [facility] BASIC METABOLIC PANEL+MG CHLORIDE [MOLES/VOLU ME] IN SERUM OR PLASMA 107 mmol/L 98 - 107 02/02 Specimen Type: PLASMA No comment entered. Ordering Provider: BRANDEN ARMENTA Report Released Date/Time: January 28, 2023 03:57 PM Reporting Lab: [facility] [address] Performing Lab: [facility] [address] [place] [facility] BASIC METABOLIC PANEL+MG CARBON DIOXIDE, TOTAL [MOLES/VOLU ME] IN SERUM OR PLASMA 23 mmol/L 22 - 29 02/02 Specimen Type: PLASMA No comment entered. Ordering Provider: BRANDEN ARMENTA Report Released Date/Time: January 28, 2023 03:57 PM Reporting Lab: [facility] [address] Performing Lab: [facility] [address] [place] [facility] BASIC METABOLIC PANEL+MG CALCIUM [MASS/VOLUM E] IN SERUM OR PLASMA 10.1 mg/dL 8.4 - 10.2 02/02 Specimen Type: PLASMA No comment entered. Ordering Provider: BRANDEN ARMENTA Report Released Date/Time: January 28, 2023 03:57 PM Reporting Lab: [facility] [address] Performing Lab: [facility] [address] [place] [facility] BASIC METABOLIC PANEL+MG MAGNESIUM [MASS/VOLUM E] IN SERUM OR PLASMA 2.1 mg/dL 1.6 - 2.6 02/02 Specimen Type: PLASMA No comment entered. Ordering Provider: BRANDEN ARMENTA Report Released Date/Time: January 28, 2023 03:57 PM Reporting Lab: [facility] [address] Performing Lab: [facility] [address] [place] [facility] BASIC METABOLIC PANEL+MG ANION GAP IN SERUM OR PLASMA 12 mmol/L 5 - 15 02/02 Specimen Type: PLASMA No comment entered. Ordering Provider: BRANDEN ARMENTA Report Released Date/Time: January 28, 2023 03:57 PM Reporting Lab: [facility] [address] Performing Lab: [facility] [address] [place] [facility] BASIC METABOLIC PANEL+MG GLOMERULAR FILTRATION RATE/1.73 SQ M.PREDICTED [VOLUME RATE/AREA] IN SERUM, PLASMA OR BLOOD BY CREATININE- BASED FORMULA (CKD-EPI 2020) 75 60 02/02 Specimen Type: PLASMA No comment entered. Ordering Provider: BRANDEN ARMENTA Report Released Date/Time: January 28, 2023 03:57 PM Reporting Lab: [facility] [address] Performing Lab: [facility] [address] [place] [facility] HEMOGLOBI N A1C HEMOGLOBIN A1C/HEMOGLO BIN.TOTAL IN [...] January 28, 2023 03:57 PM Reporting Lab: [facility] [address] Performing Lab: [facility] [address] [place] [facility] LIPID PANEL,NON -FASTING CHOLESTEROL [MASS/VOLUM E] IN SERUM OR PLASMA 199 mg/dL <199 - 199 02/02 Specimen Type: PLASMA No comment entered. Ordering Provider: BRANDEN ARMENTA Report Released Date/Time: January 28, 2023 03:57 PM Reporting Lab: [facility] [address] Performing Lab: [facility] [address] [place] [facility] LIPID PANEL,NON -FASTING CHOLESTEROL IN HDL [MASS/VOLUM E] IN SERUM OR PLASMA 48 mg/dL 50 02/02 Specimen Type: PLASMA No comment entered. Ordering Provider: BRANDEN ARMENTA Report Released Date/Time: January 28, 2023 03:57 PM Reporting Lab: [facility] [address] Performing Lab: [facility] [address] [place] [facility] LIPID PANEL,NON -FASTING CHOLESTEROL IN LDL [MASS/VOLUM E] IN SERUM OR PLASMA BY CALCULATION 125 mg/dL <99 - 99 02/02 H Specimen Type: PLASMA No comment entered. Ordering Provider: BRANDEN ARMENTA Report Released Date/Time: January 28, 2023 03:57 PM Reporting Lab: [facility] [address] Performing Lab: [facility] [address] [place] [facility] LIPID PANEL,NON -FASTING CHOLESTEROL IN VLDL [MASS/VOLUM E] IN SERUM OR PLASMA BY CALCULATION 26 mg/dL <29 - 29 02/02 Specimen Type: PLASMA No comment entered. Ordering Provider: BRANDEN ARMENTA Report Released Date/Time: January 28, 2023 03:57 PM Reporting Lab: [facility] [address] Performing Lab: [facility] [address] [place] [facility] LIPID PANEL,NON -FASTING CHOLESTEROL NON HDL [MASS/VOLUM E] IN SERUM OR PLASMA 151 mg/dL <129 - 129 02/02 H Specimen Type: PLASMA No comment entered. Ordering Provider: BRANDEN ARMENTA Report Released Date/Time: January 28, 2023 03:57 PM Reporting Lab: [facility] [address] Performing Lab: [facility] [address] [place] [facility] LIPID PANEL,NON -FASTING TRIGLYCERID E [MASS/VOLUM E] IN SERUM OR PLASMA 129 mg/dL <149 - 149 02/02 Specimen Type: PLASMA No comment entered. Ordering Provider: BRANDEN ARMENTA Report Released Date/Time: January 28, 2023 03:57 PM Reporting Lab: [facility] [address] Performing Lab: [facility] [address] [place] [facility] CBC & DIFF LEUKOCYTES [#/VOLUME] IN BLOOD BY AUTOMATED COUNT 6.79 10*3/u L 4.0 - 11.0 02/02 Specimen Type: BLOOD Comment: Automated Differentia l Performed Ordering Provider: BRANDEN ARMENTA Report Released Date/Time: January 28, 2023 03:57 PM Reporting Lab: [facility] [address] Performing Lab: [facility] [address] [place] [facility] CBC & DIFF ERYTHROCYTE S [#/VOLUME] IN BLOOD BY AUTOMATED COUNT 4.64 10*6/u L 4.0 - 5.4 02/02 Specimen Type: BLOOD Comment: Automated Differentia l Performed Ordering Provider: BRANDEN ARMENTA Report Released Date/Time: January 28, 2023 03:57 PM Reporting Lab: [facility] [address] Performing Lab: [facility] [address] [place] [facility] CBC & DIFF HEMOGLOBIN [MASS/VOLUM E] IN BLOOD 14.0 g/dL 11.5 - 16 02/02 Specimen Type: BLOOD Comment: Automated Differentia l Performed Ordering Provider: BRANDEN ARMENTA Report Released Date/Time: January 28, 2023 03:57 PM Reporting Lab: [facility] [address] Performing Lab: [facility] [address] [place] [facility] CBC & DIFF HEMATOCRIT [VOLUME FRACTION] OF BLOOD BY AUTOMATED COUNT 42.0 34.5 - 48 02/02 Specimen Type: BLOOD Comment: Automated Differentia l Performed Ordering Provider: BRANDEN ARMENTA Report Released Date/Time: January 28, 2023 03:57 PM Reporting Lab: [facility] [address] Performing Lab: [facility] [address] [place] [facility] CBC & DIFF MCV [ENTITIC VOLUME] BY AUTOMATED COUNT 90.5 fL 80 - 100 02/02 Specimen Type: BLOOD Comment: Automated Differentia l Performed Ordering Provider: BRANDEN ARMENTA Report Released Date/Time: January 28, 2023 03:57 PM Reporting Lab: [facility] [address] Performing Lab: [facility] [address] [place] [facility] CBC & DIFF MCH [ENTITIC MASS] BY AUTOMATED COUNT 30.2 pg 27 - 33 02/02 Specimen Type: BLOOD Comment: Automated Differentia l Performed Ordering Provider: BRANDEN ARMENTA Report Released Date/Time: January 28, 2023 03:57 PM Reporting Lab: [facility] [address] Performing Lab: [facility] [address] [place] [facility] CBC & DIFF MCHC [MASS/VOLUM E] BY AUTOMATED COUNT 33.3 g/dL 32.0 - 37.5 02/02 Specimen Type: BLOOD Comment: Automated Differentia l Performed Ordering Provider: BRANDEN ARMENTA Report Released Date/Time: January 28, 2023 03:57 PM Reporting Lab: [facility] [address] Performing Lab: [facility] [address] [place] [facility] CBC & DIFF PLATELETS [#/VOLUME] IN BLOOD BY AUTOMATED COUNT 264 10*3/u L 150 - 400 02/02 Specimen Type: BLOOD Comment: Automated Differentia l Performed Ordering Provider: BRANDEN ARMENTA Report Released Date/Time: January 28, 2023 03:57 PM Reporting Lab: [facility] [address] Performing Lab: [facility] [address] [place] [facility] CBC & DIFF PLATELET MEAN VOLUME [ENTITIC VOLUME] IN BLOOD BY AUTOMATED COUNT 9.5 fL 7.4 - 10.4 02/02 Specimen Type: BLOOD Comment: Automated Differentia l Performed Ordering Provider: BRANDEN ARMENTA Report Released Date/Time: January 28, 2023 03:57 PM Reporting Lab: [facility] [address] Performing Lab: [facility] [address] [place] [facility] CBC & DIFF NEUTROPHILS /100 LEUKOCYTES IN BLOOD BY MANUAL COUNT 50.6 40.0 - 80.0 02/02 Specimen Type: BLOOD Comment: Automated Differentia l Performed Ordering Provider: BRANDEN ARMENTA Report Released Date/Time: January 28, 2023 03:57 PM Reporting Lab: [facility] [address] Performing Lab: [facility] [address] [place] [facility] CBC & DIFF LYMPHOCYTES /100 LEUKOCYTES IN BLOOD BY MANUAL COUNT 33.9 15.0 - 45.0 02/02 Specimen Type: BLOOD Comment: Automated Differentia l Performed Ordering Provider: BRANDEN ARMENTA Report Released Date/Time: January 28, 2023 03:57 PM Reporting Lab: [facility] [address] Performing Lab: [facility] [address] [place] [facility] CBC & DIFF MONOCYTES/1 00 LEUKOCYTES IN BLOOD BY AUTOMATED COUNT 6.0 2.0 - 12.0 02/02 Specimen Type: BLOOD Comment: Automated Differentia l Performed Ordering Provider: BRANDEN ARMENTA Report Released Date/Time: January 28, 2023 03:57 PM Reporting Lab: [facility] [address] Performing Lab: [facility] [address] [place] [facility] CBC & DIFF EOSINOPHILS /100 LEUKOCYTES IN BLOOD BY AUTOMATED COUNT 8.5 0.0 - 6.0 02/02 H Specimen Type: BLOOD Comment: Automated Differentia l Performed Ordering Provider: BRANDEN ARMENTA Report Released Date/Time: January 28, 2023 03:57 PM Reporting Lab: [facility] [address] Performing Lab: [facility] [address] [place] [facility] CBC & DIFF BASOPHILS/1 00 LEUKOCYTES IN BLOOD BY MANUAL COUNT 0.9 0.0 - 2.0 02/02 Specimen Type: BLOOD Comment: Automated Differentia l Performed Ordering Provider: BRANDEN ARMENTA Report Released Date/Time: January 28, 2023 03:57 PM Reporting Lab: [facility] [address] Performing Lab: [facility] [address] [place] [facility] CBC & DIFF ERYTHROCYTE DISTRIBUTIO N WIDTH [RATIO] BY AUTOMATED COUNT 12.3 11.5 - 14.5 02/02 Specimen Type: BLOOD Comment: Automated Differentia l Performed Ordering Provider: BRANDEN ARMENTA Report Released Date/Time: January 28, 2023 03:57 PM Reporting Lab: [facility] [address] Performing Lab: [facility] [address] [place] [facility] CBC & DIFF LYMPHOCYTES [#/VOLUME] IN BLOOD BY AUTOMATED COUNT 2.30 10*3/u L 1.0 - 4.0 02/02 Specimen Type: BLOOD Comment: Automated Differentia l Performed Ordering Provider: BRANDEN ARMENTA Report Released Date/Time: January 28, 2023 03:57 PM Reporting Lab: [facility] [address] Performing Lab: [facility] [address] [place] [facility] CBC & DIFF MONOCYTES [#/VOLUME] IN BLOOD BY AUTOMATED COUNT 0.41 10*3/u L 0.1 - 1.0 02/02 Specimen Type: BLOOD Comment: Automated Differentia l Performed Ordering Provider: BRANDEN ARMENTA Report Released Date/Time: January 28, 2023 03:57 PM Reporting Lab: [facility] [address] Performing Lab: [facility] [address] [place] [facility] CBC & DIFF NEUTROPHILS [#/VOLUME] IN BLOOD BY AUTOMATED COUNT 3.43 10*3/u L 2.0 - 7.7 02/02 Specimen Type: BLOOD Comment: Automated Differentia l Performed Ordering Provider: BRANDEN ARMENTA Report Released Date/Time: January 28, 2023 03:57 PM Reporting Lab: [facility] [address] Performing Lab: [facility] [address] [place] [facility] CBC & DIFF EOSINOPHILS [#/VOLUME] IN BLOOD BY AUTOMATED COUNT 0.58 10*3/u L 0 - 0.5 02/02 H Specimen Type: BLOOD Comment: Automated Differentia l Performed Ordering Provider: BRANDEN ARMENTA Report Released Date/Time: January 28, 2023 03:57 PM Reporting Lab: [facility] [address] Performing Lab: [facility] [address] [place] [facility] CBC & DIFF BASOPHILS [#/VOLUME] IN BLOOD BY AUTOMATED COUNT 0.06 10*3/u L 0 - 0.2 02/02 Specimen Type: BLOOD Comment: Automated Differentia l Performed Ordering Provider: BRANDEN ARMENTA Report Released Date/Time: January 28, 2023 03:57 PM Reporting Lab: [facility] [address] Performing Lab: [facility] [address] [place] [facility] CBC & DIFF IG(META,MYE LO,PRO) 0.1 02/02 Specimen Type: BLOOD Comment: Automated Differentia l Performed Ordering Provider: BRANDEN ARMENTA Report Released Date/Time: January 28, 2023 03:57 PM Reporting Lab: [facility] [address] Performing Lab: [facility] [address] [place] [facility] CBC & DIFF IMMATURE GRANULOCYTE S [PRESENCE] IN BLOOD BY AUTOMATED COUNT 0.01 10*3/u L 0 - 0.1 02/02 Specimen Type: BLOOD Comment: Automated Differentia l Performed Ordering Provider: BRANDEN ARMENTA Report Released Date/Time: January 28, 2023 03:57 PM Reporting Lab: [facility] [address] Performing Lab: [facility] [address] [place] [facility] CBC & DIFF LEUKOCYTES [#/VOLUME] IN BLOOD BY AUTOMATED COUNT 5.76 10*3/u L 4.0 - 11.0 06/28 Specimen Type: BLOOD Comment: Automated Differentia l Performed Ordering Provider: PAM MCKENZIE Report Released Date/Time: Jun 25, 2023 01:19 PM Reporting Lab: [facility] [address] Performing Lab: [facility] [address] [place] [facility] CBC & DIFF ERYTHROCYTE S [#/VOLUME] IN BLOOD BY AUTOMATED COUNT 4.46 10*6/u L 4.0 - 5.4 06/28 Specimen Type: BLOOD Comment: Automated Differentia l Performed Ordering Provider: PAM MCKENZIE Report Released Date/Time: Jun 25, 2023 01:19 PM Reporting Lab: [facility] [address] Performing Lab: [facility] [address] [place] [facility] CBC & DIFF HEMOGLOBIN [MASS/VOLUM E] IN BLOOD 13.7 g/dL 11.5 - 16 06/28 Specimen Type: BLOOD Comment: Automated Differentia l Performed Ordering Provider: PAM MCKENZIE Report Released Date/Time: Jun 25, 2023 01:19 PM Reporting Lab: [facility] [address] Performing Lab: [facility] [address] [place] [facility] CBC & DIFF HEMATOCRIT [VOLUME FRACTION] OF BLOOD BY AUTOMATED COUNT 40.5 34.5 - 48 06/28 Specimen Type: BLOOD Comment: Automated Differentia l Performed Ordering Provider: PAM MCKENZIE Report Released Date/Time: Jun 25, 2023 01:19 PM Reporting Lab: [facility] [address] Performing Lab: [facility] [address] [place] [facility] CBC & DIFF MCV [ENTITIC VOLUME] BY AUTOMATED COUNT 90.8 fL 80 - 100 06/28 Specimen Type: BLOOD Comment: Automated Differentia l Performed Ordering Provider: PAM MCKENZIE Report Released Date/Time: Jun 25, 2023 01:19 PM Reporting Lab: [facility] [address] Performing Lab: [facility] [address] [place] [facility] CBC & DIFF MCH [ENTITIC MASS] BY AUTOMATED COUNT 30.7 pg 27 - 33 06/28 Specimen Type: BLOOD Comment: Automated Differentia l Performed Ordering Provider: PAM MCKENZIE Report Released Date/Time: Jun 25, 2023 01:19 PM Reporting Lab: [facility] [address] Performing Lab: [facility] [address] [place] [facility] CBC & DIFF MCHC [MASS/VOLUM E] BY AUTOMATED COUNT 33.8 g/dL 32.0 - 37.5 06/28 Specimen Type: BLOOD Comment: Automated Differentia l Performed Ordering Provider: PAM MCKENZIE Report Released Date/Time: Jun 25, 2023 01:19 PM Reporting Lab: [facility] [address] Performing Lab: [facility] [address] [place] [facility] CBC & DIFF PLATELETS [#/VOLUME] IN BLOOD BY AUTOMATED COUNT 259 10*3/u L 150 - 400 06/28 Specimen Type: BLOOD Comment: Automated Differentia l Performed Ordering Provider: PAM MCKENZIE Report Released Date/Time: Jun 25, 2023 01:19 PM Reporting Lab: [facility] [address] Performing Lab: [facility] [address] [place] [facility] CBC & DIFF PLATELET MEAN VOLUME [ENTITIC VOLUME] IN BLOOD BY AUTOMATED COUNT 9.5 fL 7.4 - 10.4 06/28 Specimen Type: BLOOD Comment: Automated Differentia l Performed Ordering Provider: PAM MCKENZIE Report Released Date/Time: Jun 25, 2023 01:19 PM Reporting Lab: [facility] [address] Performing Lab: [facility] [address] [place] [facility] CBC & DIFF NEUTROPHILS /100 LEUKOCYTES IN BLOOD BY MANUAL COUNT 60.2 40.0 - 80.0 06/28 Specimen Type: BLOOD Comment: Automated Differentia l Performed Ordering Provider: PAM MCKENZIE Report Released Date/Time: Jun 25, 2023 01:19 PM Reporting Lab: [facility] [address] Performing Lab: [facility] [address] [place] [facility] CBC & DIFF LYMPHOCYTES /100 LEUKOCYTES IN BLOOD BY MANUAL COUNT 31.3 15.0 - 45.0 06/28 Specimen Type: BLOOD Comment: Automated Differentia l Performed Ordering Provider: PAM MCKENZIE Report Released Date/Time: Jun 25, 2023 01:19 PM Reporting Lab: [facility] [address] Performing Lab: [facility] [address] [place] [facility] CBC & DIFF MONOCYTES/1 00 LEUKOCYTES IN BLOOD BY AUTOMATED COUNT 5.2 2.0 - 12.0 06/28 Specimen Type: BLOOD Comment: Automated Differentia l Performed Ordering Provider: PAM MCKENZIE Report Released Date/Time: Jun 25, 2023 01:19 PM Reporting Lab: [facility] [address] Performing Lab: [facility] [address] [place] [facility] CBC & DIFF EOSINOPHILS /100 LEUKOCYTES IN BLOOD BY AUTOMATED COUNT 2.3 0.0 - 6.0 06/28 Specimen Type: BLOOD Comment: Automated Differentia l Performed Ordering Provider: PAM MCKENZIE Report Released Date/Time: Jun 25, 2023 01:19 PM Reporting Lab: [facility] [address] Performing Lab: [facility] [address] [place] [facility] CBC & DIFF BASOPHILS/1 00 LEUKOCYTES IN BLOOD BY MANUAL COUNT 1.0 0.0 - 2.0 06/28 Specimen Type: BLOOD Comment: Automated Differentia l Performed Ordering Provider: PAM MCKENZIE Report Released Date/Time: Jun 25, 2023 01:19 PM Reporting Lab: [facility] [address] Performing Lab: [facility] [address] [place] [facility] CBC & DIFF ERYTHROCYTE DISTRIBUTIO N WIDTH [RATIO] BY AUTOMATED COUNT 12.2 11.5 - 14.5 06/28 Specimen Type: BLOOD Comment: Automated Differentia l Performed Ordering Provider: PAM MCKENZIE Report Released Date/Time: Jun 25, 2023 01:19 PM Reporting Lab: [facility] [address] Performing Lab: [facility] [address] [place] [facility] CBC & DIFF LYMPHOCYTES [#/VOLUME] IN BLOOD BY AUTOMATED COUNT 1.80 10*3/u L 1.0 - 4.0 06/28 Specimen Type: BLOOD Comment: Automated Differentia l Performed Ordering Provider: PAM MCKENZIE Report Released Date/Time: Jun 25, 2023 01:19 PM Reporting Lab: [facility] [address] Performing Lab: [facility] [address] [place] [facility] CBC & DIFF MONOCYTES [#/VOLUME] IN BLOOD BY AUTOMATED COUNT 0.30 10*3/u L 0.1 - 1.0 06/28 Specimen Type: BLOOD Comment: Automated Differentia l Performed Ordering Provider: PAM MCKENZIE Report Released Date/Time: Jun 25, 2023 01:19 PM Reporting Lab: [facility] [address] Performing Lab: [facility] [address] [place] [facility] CBC & DIFF NEUTROPHILS [#/VOLUME] IN BLOOD BY AUTOMATED COUNT 3.47 10*3/u L 2.0 - 7.7 06/28 Specimen Type: BLOOD Comment: Automated Differentia l Performed Ordering Provider: PAM MCKENZIE Report Released Date/Time: Jun 25, 2023 01:19 PM Reporting Lab: [facility] [address] Performing Lab: [facility] [address] [place] [facility] CBC & DIFF EOSINOPHILS [#/VOLUME] IN BLOOD BY AUTOMATED COUNT 0.13 10*3/u L 0 - 0.5 06/28 Specimen Type: BLOOD Comment: Automated Differentia l Performed Ordering Provider: PAM MCKENZIE Report Released Date/Time: Jun 25, 2023 01:19 PM Reporting Lab: [facility] [address] Performing Lab: [facility] [address] [place] [facility] CBC & DIFF BASOPHILS [#/VOLUME] IN BLOOD BY AUTOMATED COUNT 0.06 10*3/u L 0 - 0.2 06/28 Specimen Type: BLOOD Comment: Automated Differentia l Performed Ordering Provider: PAM MCKENZIE Report Released Date/Time: Jun 25, 2023 01:19 PM Reporting Lab: [facility] [address] Performing Lab: [facility] [address] [place] [facility] CBC & DIFF IG(META,MYE LO,PRO) 0.0 06/28 Specimen Type: BLOOD Comment: Automated Differentia l Performed Ordering Provider: PAM MCKENZIE Report Released Date/Time: Jun 25, 2023 01:19 PM Reporting Lab: [facility] [address] Performing Lab: [facility] [address] [facility] CBC & DIFF IMMATURE GRANULOCYTE S [PRESENCE] IN BLOOD BY AUTOMATED COUNT 0.00 10*3/u L 0 - 0.1 06/28 Specimen Type: BLOOD Comment: Automated Differentia l Performed Ordering Provider: PAM MCKENZIE Report Released Date/Time: Jun 25, 2023 01:19 PM Reporting Lab: [facility] [address] Performing Lab: [facility] [address] [facility] PROTHROMB IN TIME/INR INR IN PLATELET POOR PLASMA BY COAGULATION ASSAY 1.0 0.8 - 1.1 06/28 Specimen Type: PLASMA Comment: Automated Differentia l Performed Ordering Provider: PAM MCKENZIE Report Released Date/Time: Jun 25, 2023 01:19 PM Reporting Lab: [facility] [address] Performing Lab: [facility] [address] [place] [facility] PROTHROMB IN TIME/INR PROTHROMBIN TIME (PT) 11.6 s 9.4 - 12.5 06/28 Specimen Type: PLASMA Comment: Automated Differentia l Performed Ordering Provider: PAM MCKENZIE Report Released Date/Time: Jun 25, 2023 01:19 PM Reporting Lab: [facility] [address] Performing Lab: [facility] [address] [place] [facility] ACT PART THROMBO TIME APTT IN PLATELET POOR PLASMA BY COAGULATION ASSAY 29.2 s 25.1 - 36.5 06/28 Specimen Type: PLASMA Comment: Automated Differentia l Performed Ordering Provider: PAM MCKENZIE Report Released Date/Time: Jun 25, 2023 01:19 PM Reporting Lab: [facility] [address] Performing Lab: [facility] [address] [place] [facility] BASIC METABOLIC PANEL+MG CREATININE [MASS/VOLUM E] IN SERUM OR PLASMA 0.8 mg/dL 0.5 - 1.0 06/28 Specimen Type: PLASMA No comment entered. Ordering Provider: PAM MCKENZIE Report Released Date/Time: Jun 25, 2023 01:19 PM Reporting Lab: [facility] [address] Performing Lab: [facility] [address] [place] [facility] BASIC METABOLIC PANEL+MG UREA NITROGEN [MASS/VOLUM E] IN SERUM OR PLASMA 22 mg/dL 7 - 20 06/28 H Specimen Type: PLASMA No comment entered. Ordering Provider: PAM MCKENZIE Report Released Date/Time: Jun 25, 2023 01:19 PM Reporting Lab: [facility] [address] Performing Lab: [facility] [address] [place] [facility] BASIC METABOLIC PANEL+MG GLUCOSE [MASS/VOLUM E] IN SERUM OR PLASMA 95 mg/dL 70 - 100 06/28 Specimen Type: PLASMA No comment entered. Ordering Provider: PAM MCKENZIE Report Released Date/Time: Jun 25, 2023 01:19 PM Reporting Lab: [facility] [address] Performing Lab: [facility] [address] [place] [facility] BASIC METABOLIC PANEL+MG SODIUM [MOLES/VOLU ME] IN SERUM OR PLASMA 141 mmol/L 136 - 145 06/28 Specimen Type: PLASMA No comment entered. Ordering Provider: PAM MCKENZIE Report Released Date/Time: Jun 25, 2023 01:19 PM Reporting Lab: [facility] [address] Performing Lab: [facility] [address] [place] [facility] BASIC METABOLIC PANEL+MG POTASSIUM [MOLES/VOLU ME] IN SERUM OR PLASMA 3.9 mmol/L 3.5 - 5.1 06/28 Specimen Type: PLASMA No comment entered. Ordering Provider: PAM MCKENZIE Report Released Date/Time: Jun 25, 2023 01:19 PM Reporting Lab: [facility] [address] Performing Lab: [facility] [address] [place] [facility] BASIC METABOLIC PANEL+MG CHLORIDE [MOLES/VOLU ME] IN SERUM OR PLASMA 107 mmol/L 98 - 107 06/28 Specimen Type: PLASMA No comment entered. Ordering Provider: PAM MCKENZIE Report Released Date/Time: Jun 25, 2023 01:19 PM Reporting Lab: [facility] [address] Performing Lab: [facility] [address] [place] [facility] BASIC METABOLIC PANEL+MG CARBON DIOXIDE, TOTAL [MOLES/VOLU ME] IN SERUM OR PLASMA 24 mmol/L 22 - 29 06/28 Specimen Type: PLASMA No comment entered. Ordering Provider: PAM MCKENZIE Report Released Date/Time: Jun 25, 2023 01:19 PM Reporting Lab: [facility] [address] Performing Lab: [facility] [address] [place] [facility] BASIC METABOLIC PANEL+MG CALCIUM [MASS/VOLUM E] IN SERUM OR PLASMA 9.4 mg/dL 8.4 - 10.2 06/28 Specimen Type: PLASMA No comment entered. Ordering Provider: PAM MCKENZIE Report Released Date/Time: Jun 25, 2023 01:19 PM Reporting Lab: [facility] [address] Performing Lab: [facility] [address] [place] [facility] BASIC METABOLIC PANEL+MG MAGNESIUM [MASS/VOLUM E] IN SERUM OR PLASMA 2.2 mg/dL 1.6 - 2.6 06/28 Specimen Type: PLASMA No comment entered. Ordering Provider: PAM MCKENZIE Report Released Date/Time: Jun 25, 2023 01:19 PM Reporting Lab: [facility] [address] Performing Lab: [facility] [address] [place] [facility] BASIC METABOLIC PANEL+MG ANION GAP IN SERUM OR PLASMA 10 mmol/L 5 - 15 06/28 Specimen Type: PLASMA No comment entered. Ordering Provider: PAM MCKENZIE Report Released Date/Time: Jun 25, 2023 01:19 PM Reporting Lab: [facility] [address] Performing Lab: [facility] [address] [place] [facility] BASIC METABOLIC PANEL+MG GLOMERULAR FILTRATION RATE/1.73 SQ M.PREDICTED [VOLUME RATE/AREA] IN SERUM, PLASMA OR BLOOD BY CREATININE- BASED FORMULA (CKD-EPI 2020) 88 60 06/28 Specimen Type: PLASMA No comment entered. Ordering Provider: PAM MCKENZIE Report Released Date/Time: Jun 25, 2023 01:19 PM Reporting Lab: [facility] [address] Performing Lab: [facility] [address] [place] [facility] LIPID PANEL,NON -FASTING CHOLESTEROL [MASS/VOLUM E] IN SERUM OR PLASMA 160 mg/dL <199 - 199 01/28 Specimen Type: PLASMA No comment entered. Ordering Provider: BRANDEN ARMENTA Report Released Date/Time: January 28, 2023 03:57 PM Reporting Lab: [facility] [address] Performing Lab: [facility] [address] [place] [facility] LIPID PANEL,NON -FASTING CHOLESTEROL IN HDL [MASS/VOLUM E] IN SERUM OR PLASMA 61 mg/dL 50 01/28 Specimen Type: PLASMA No comment entered. Ordering Provider: BRANDEN ARMENTA Report Released Date/Time: January 28, 2023 03:57 PM Reporting Lab: [facility] [address] Performing Lab: [facility] [address] [place] [facility] LIPID PANEL,NON -FASTING CHOLESTEROL IN LDL [MASS/VOLUM E] IN SERUM OR PLASMA BY CALCULATION 83 mg/dL <99 - 99 01/28 Specimen Type: PLASMA No comment entered. Ordering Provider: BRANDEN ARMENTA Report Released Date/Time: January 28, 2023 03:57 PM Reporting Lab: [facility] [address] Performing Lab: [facility] [address] [place] [facility] LIPID PANEL,NON -FASTING CHOLESTEROL IN VLDL [MASS/VOLUM E] IN SERUM OR PLASMA BY CALCULATION 16 mg/dL <29 - 29 01/28 Specimen Type: PLASMA No comment entered. Ordering Provider: BRANDEN ARMENTA Report Released Date/Time: January 28, 2023 03:57 PM Reporting Lab: [facility] [address] Performing Lab: [facility] [address] [place] [facility] LIPID PANEL,NON -FASTING CHOLESTEROL NON HDL [MASS/VOLUM E] IN SERUM OR PLASMA 99 mg/dL <129 - 129 01/28 Specimen Type: PLASMA No comment entered. Ordering Provider: BRANDEN ARMENTA Report Released Date/Time: January 28, 2023 03:57 PM Reporting Lab: [facility] [address] Performing Lab: [facility] [address] [place] [facility] LIPID PANEL,NON -FASTING TRIGLYCERID E [MASS/VOLUM E] IN SERUM OR PLASMA 81 mg/dL <149 - 149 01/28 Specimen Type: PLASMA No comment entered. Ordering Provider: BRANDEN ARMENTA Report Released Date/Time: January 28, 2023 03:57 PM Reporting Lab: [facility] [address] Performing Lab: [facility] [address] [place] [facility] Vital Signs Combined list of inpatient and outpatient Vital Signs from Department of Defense and Veterans Affairs, ranging from 12 months to all on record, depending upon the facility. Vital Sign Value Date Comments Source SYSTOLIC BLOOD PRESSURE 126 02/03/2024 08:14:26 [facility] DIASTOLIC BLOOD PRESSURE 85 02/03/2024 08:14:26 [facility] PULSE OXIMETRY 99 02/03/2024 08:14:26 [facility] WEIGHT 172 02/03/2024 08:14:26 [facility] BMI 28kg/m2 02/03/2024 08:14:26 [facility] PAIN 0 02/03/2024 08[facility]14:26 [facility] HEIGHT 66 02/03/2024 08:14:26 [facility] PULSE 66 02/03/2024 08:14:26 [facility] RESPIRATION 14 02/03/2024 08:14:26 [facility] Encounters Combined list of: 1) Encounters from Department of Veterans Affairs facilities going back up to thelast 18 months. 2) Encounters from the Department of Defense facilities going back up to 280 months. Location Location Details Encounter Type Encounter Number Reason For Visit Attending Provider ADM Date DC Date Status Disposition Source [facility](Ph ysical Exam Daniele ) OUTPATIENT [id number] RCPHA REVIEW LUIS A RUTH 08/11 Released w/o Limitations [facility]( Physica l Exam Diloren zo) [facility](Im munizatio n DI) OUTPATIENT [id number] SANDRA SPENCE 11/09 Released w/o Limitations [facility]( Immuniz ation DI) [facility](Ph ysical Exam Daniele ) OUTPATIENT [id number] [employer] [facility] [facility] 11/09 Released w/o Limitations [facility]( Physica l Exam Diloren zo) [facility](Im munizatio n DI) OUTPATIENT [id number] SANDRA SPENCE 11/16 Released w/o Limitations [facility]( Immuniz ation DI) [facility](Ph ysical Exam Daniele ) OUTPATIENT [id number] af CL Rolon 12/09 Released w/o Limitations [facility]( Physica l Exam Diloren zo) [facility](Im munizatio n DI) OUTPATIENT [id number] LETY FRAIRE 12/09 Released w/o Limitations [facility]( Immuniz ation DI) [facility](Al lergy Daniele ) OUTPATIENT [id number] flu LETY FELTON Justus 07/04 Released w/o Limitations [facility]( Allergy Diloren zo) [facility](Op erational Medicine MG) OUTPATIENT [id number] pha morro DEE DORIAN Brigette 04/26 Released w/o Limitations [facility]( Operati onal Medicin e MG) [facility](Tevin lling PHA) OUTPATIENT [id number] [facility] Res PHA JEFFREY FLORES 04/04 Released w/o Limitations [facility]( Oplo PHA) [facility](Fa [facility] Med Cl Team C_Non-AD) OUTPATIENT [id number] Isreal estrada. for JAKE Brown 04/08 Released w/o Limitations [facility]( Family Med Cl Team C_Non-A D) [facility](Mu [place] MG) OUTPATIENT [id number] Pt needs to request Profile ISAIAH COY 02/27 Released with Work/Duty Limitations [facility]( [place] MG) [facility](Im munizatio n DI) OUTPATIENT [id number] Notes Entered by: Nawaf BOLAÑOS 20 Apr 2013 1517 ------- ------- ------- ------- -- Update ISHMAEL BOTELLO 04/20 Released w/o Limitations [facility]( Immuniz ation DI) [facility](Teivn lling PHA) OUTPATIENT [id number] PHA MERLE PISANOA KHRIS 04/22 Released w/o Limitations [facility]( Polo PHA) [facility] OUTPATIENT [id number] Notes Entered by: YOHANNES GUERRERO 26 Apr 2014 0851 ------- ------- ------- ------- -- HAIDER WALLACE 04/26 Released w/o Limitations [facility] OUTPATIENT [id number] Notes Entered by: DOUG KRAFT 20 Apr 2015 1503 ------- ------- ------- ------- -- MORRO AREVALOTASHINEZ Pedersen 04/20 Released w/o Limitations [facility]) [facility](Base [employer] al Medicine Cell) OUTPATIENT [id number] [facility]/292 [id number] GIANNA BECKER 05/03 Released w/o Limitations [facility](Bas e Operati onal Medicin e Cell) [facility] IS [facility] Outpatient Encounter [id number] 03/11 [facility] IS [facility] Outpatient Encounter [id number] Diagnos is: ICD-10- CM E66.3 Overwei ght<br/ > VANESSA WILLSON E 03/20 [facility] IS [facility] Outpatient Encounter [id number] 05/24 [facility] IS [facility] OFFICE O/P EST SF 10-19 MIN [id number] Diagnos is: ICD-10- CM J34.2 Deviate d nasal septum< br/> PAM MCKENZIE 06/21 [facility] IS [facility] Outpatient Encounter [id number] 06/21 [facility] IS [facility] ELECTROCAR DIOGRAM COMPLETE [id number] Diagnos is: ICD-10- CM Z13.6 Encount er for screeni ng for cardiov ascular disorde rs
JOSEKATYA EY A 06/28 [facility] IS [facility] OFFICE O/P EST MOD 30-39 MIN [id number] Diagnos is: ICD-10- CM Z01.818 Encount er for other preproc edural examina tion
EDI CALABRESE 06/28 [facility] [facility] IS [facility] PT EDUCATION NOC INDIVID [id number] Diagnos is: ICD-10- CM Z71.89 Other specifi ed vocational counselor ing<br/ > MAYELINJW ATA V 06/28 [facility] Outpatient Encounter [id number] 07/01 [facility] [place] [facility] Outpatient Encounter [id number] JOSE MONROY P 07/01 [facility] [place] [facility] Outpatient Encounter [id number] 08/06 [facility] [place] [facility] Outpatient Encounter [id number] 02/01 [facility] IS [facility] OFFICE O/P EST MOD 30 MIN [id number] Diagnos is: ICD-10- CM J34.2 Deviate d nasal septum< br/> OTTO KERR 02/02 [facility] Procedures Combined list of: 1) Procedures from Department of [facility] Affairs facilities going back up to thelast 18 months, not all [place] non-surgical procedures are included; 2) All procedures from the Department of Defense facilities. Procedure Procedure Type Code Date Perfomer Comments Sour e Preventive Medicine Administration Of Health Risk Questionnaire Patient-Focused Preventive Medicine Administration Of Health Risk Questionnaire Patient-Focused 22261 05/03/[address] [facility] Immunization Administration By Injection, One Vaccine Immunization Administration By Injection, One Vaccine 97788 07/04/[address] [facility] Influenza Split Virus Vaccine 0.5mL Dosage Intramuscular 07/04/[address] [facility] ECG Performance of Tracing Only ECG Performance of Tracing Only 32696 11/09/[address] [facility] ONLINE ASSESS &MANAG SERV PROVIDE,A QUAL NONPHYS HCP TO AN ESTABLISHED PAT/GUARDIAN,NOT ORIGINAT FRM RELAT ASSESS &MANAG SERV PROVIDE W/IN THE PREV 7 DAYS,USE THE INTERNET/SIMILAR [employer] NETWORK 05/03/2017 [facility] POSTOPERATIVE FOLLOW-UP VISIT, NORMALLY INCLUDED IN THE SURGICAL PACKAGE, INDICATE THAT EVALUATION & MANAGEMENT SERVICE WAS PERFORMED DURING A POSTOPERATIVE PERIOD REASON RELATED ORIGINAL PROCEDURE 02/15/2004 [facility] CERVICAL OR VAGINAL CANCER SCREENING; PELVIC AND CLINICAL BREAST EXAMINATION 02/15/2004 [facility] REPAIR, INTERMEDIATE, WOUNDS OF SCALP, AXILLAE, TRUNK AND/OR EXTREMITIES (EXCLUDING HANDS AND FEET); 2.5 CM OR LESS 02/04/2004 [facility] INFLUENZA VIRUS VACCINE, TRIVALENT (IIV3), SPLIT VIRUS, 0.5 ML DOSAGE, FOR INTRAMUSCULAR USE 07/04/2010 [facility] ELECTROCARDIOGRAM, ROUTINE ECG WITH AT LEAST 12 LEADS; TRACING ONLY, WITHOUT INTERPRETATION AND REPORT 11/09/2008 [facility] IMMUNIZATION ADMINISTRATION BY INTRANASAL OR ORAL ROUTE; 1 VACCINE (SINGLE OR COMBINATION VACCINE/TOXOID) 08/22/2006 [facility] INTRACUTANEOUS (INTRADERMAL) TESTS WITH ALLERGENIC EXTRACTS, DELAYED TYPE REACTION, INCLUDING READING, SPECIFY NUMBER OF TESTS 05/30/2006 [facility] IMMUNIZATION ADMINISTRATION (INCLUDES PERCUTANEOUS, INTRADERMAL, SUBCUTANEOUS, OR INTRAMUSCULAR INJECTIONS); 1 VACCINE (SINGLE OR COMBINATION VACCINE/TOXOID) 04/15/2006 [facility] INJECTION OF RH IMMUNE GLOBULIN 02/08/2003 [facility] REPAIR OF OTHER CURRENT OBSTETRIC LACERATION 02/08/2003 [facility] ECHOCARDIOGRAPHY, , CARDIOVASCULAR SYSTEM, REAL TIME WITH IMAGE DOCUMENTATION (2D) WITH OR WITHOUT M-MODE RECORDING; 02/04/2003 [facility] UNLISTED PROCEDURE, MATERNITY CARE AND DELIVERY 01/22/2003 [facility] ECHOCARDIOGRAPHY, , CARDIOVASCULAR SYSTEM, REAL TIME WITH IMAGE DOCUMENTATION (2D) WITH OR WITHOUT M-MODE RECORDING; 01/11/2003 [facility] UNLISTED CHEMISTRY PROCEDURE 01/01/2003 [facility] ECHOCARDIOGRAPHY, , CARDIOVASCULAR SYSTEM, REAL TIME WITH IMAGE DOCUMENTATION (2D) WITH OR WITHOUT M-MODE RECORDING; 10/26/2002 [facility] ECHOCARDIOGRAPHY, , CARDIOVASCULAR SYSTEM, REAL TIME WITH IMAGE DOCUMENTATION (2D) WITH OR WITHOUT M-MODE RECORDING; 09/28/2002 [facility] CERVICAL OR VAGINAL CANCER SCREENING; PELVIC AND CLINICAL BREAST EXAMINATION 07/02/2002 [facility] CYTOPATHOLOGY, SMEARS, CERVICAL OR VAGINAL, UP TO THREE SMEARS; SCREENING BY LICENSED MORTICIAN UNDER PHYSICIAN SUPERVISION 09/10/2001 [facility] VACCINATION AGAINST RUBELLA 07/28/2001 [facility] EPISIOTOMY 07/28/2001 [facility] OTHER MONITORING 07/28/2001 [facility] NON-STRESS TEST 07/25/2001 [facility] CEREBRAL VASCULAR FLOW 07/18/2001 [facility] ECHOCARDIOGRAPHY, , CARDIOVASCULAR SYSTEM, REAL TIME WITH IMAGE DOCUMENTATION (2D) WITH OR WITHOUT M-MODE RECORDING; 07/17/2001 [facility] NON-STRESS TEST 07/15/2001 [facility] NON-STRESS TEST 07/11/2001 [facility] ECHOCARDIOGRAPHY, , CARDIOVASCULAR SYSTEM, REAL TIME WITH IMAGE DOCUMENTATION (2D) WITH OR WITHOUT M-MODE RECORDING; 07/09/2001 [facility] CEREBRAL VASCULAR FLOW 07/04/2001 [facility] CEREBRAL VASCULAR FLOW 07/01/2001 [facility] CEREBRAL VASCULAR FLOW 06/27/2001 [facility] NON-STRESS TEST 06/24/2001 [facility] UNLISTED PROCEDURE, MATERNITY CARE AND DELIVERY 06/20/2001 [facility] OBSTETRIC PANEL 06/18/2001 [facility] ECHOCARDIOGRAPHY, , CARDIOVASCULAR SYSTEM, REAL TIME WITH IMAGE DOCUMENTATION (2D) WITH OR WITHOUT M-MODE RECORDING; 06/02/2001 [facility] ECHOCARDIOGRAPHY, , CARDIOVASCULAR SYSTEM, REAL TIME WITH IMAGE DOCUMENTATION (2D) WITH OR WITHOUT M-MODE RECORDING; 05/16/2001 [facility] EDUCATIONAL SUPPLIES, SUCH BOOKS, TAPES, AND PAMPHLETS, FOR THE PATIENT'S EDUCATION AT COST TO PHYSICIAN OR OTHER QUALIFIED HEALTH RIPRAP PLACER 03/28/2001 [facility] PHYS/OTH QUALIFIED HEALTH RIPRAP PLACER QUALIFIED,EDUCATION, TRAIN,LICENSURE/REGU LATION (WHEN APPLICABLE) EDUC SER RENDERED TO PATS IN A GRP SETTING (EG,,OBESITY ,OR DIABETIC INSTRUCT) 01/24/2001 [facility] Social History Combined list of available smoking, tobacco, and other social history from Department of Defense and Veterans Affairs facilities. Social History Type Response Date Comment Sourc e Tobacco smoking status NHIS VA-TOBACCO NEVER USED 02/02/2024 [facility] History of tobacco use VA-TOBACCO NEVER USED 01/28/2023 [facility] History of tobacco use VA-TOBACCO NEVER USED 12/25/2021 [facility] This section is an empty social history section. DoD
--- OUTSIDE RECORDS SUMMARY | 2024-08-03 11:17 | XMS_ITS | Encounter Summary ---
Author Name [facility] Address [address] [place] [address] Care Team Providers Care Stock Hanger Name Role Phone NURIA BERTRAND Primary Care [...] Oneil's Name Patient's Relationship to Policy Oneil [facility] [place] [facility] [place] [place] [facility] ORGANIZAT ION W/OUT OF NETWORK BENEFITS HP OPEN ACCES S Sep 16, 2018 [id number] [phone] JACOB TREJO PATIENT MEDIMPACT RX PRESCRIPT ION HEALT H PARTN ERS [facility]SA Sep 16, 2018 [id number] [phone] JACOB TREJO PATIENT Selected Encounter This section includes the information on record at [place] for the Encounter. Date/Time Encounter Type Encounter [...] 10:16 AM PRIMARY Deviated nasal septum LINUS,[facility] February 03, 2024 10:16 AM [facility], [facility] Lab Results: +/- 30 days of the encounter This section includes the Chemistry and Hematology Lab Results on record with [place] for the patient. Radiology Reports and Pathology Reports are provided separately, in subsequent sections. Lab Results This section contains the Chemistry/Hematology Results that were resulted 30 days before or 30 daysafter the date of the Encounter. Date/Time Source Result Type Result - Unit Interpretation Reference Range Comment February 03, 2024 07:48 AM [facility] LIVER FUNCTION TESTS Specimen Type: PLASMA No comment entered. Ordering Provider: RADHA ARMENTA Report Released Date/Time: January 28, 2023 03:57 PM Reporting Lab: [facility] [id number] Performing Lab: [facility] [id number] BILIRUBIN, TOTAL 0.5 mg/dL 0.2-1.2 ALKALINE PHOSPHATASE 117 U/L 40-150 ALT/SGPT 23 U/L <55 AST/SGOT 20 U/L <34 GAMMA GTP 65 U/L H <36 February 03, 2024 07:48 AM [facility] BASIC METABOLIC PANEL+MG Specimen Type: PLASMA No comment entered. Ordering Provider: RADHA ARMENTA Report Released Date/Time: January 28, 2023 03:57 PM Reporting Lab: [facility] [id number] Performing Lab: [facility] [id number] CREATININE 0.9 mg/dL 0.5-1.0 UREA NITROGEN 14 mg/dL 7-20 GLUCOSE 92 mg/dL 70-100 SODIUM 142 mmol/L 136-145 POTASSIUM 3.9 mmol/L 3.5-5.1 CHLORIDE 107 mmol/L 98-107 CO2 23 mmol/L 22-29 CALCIUM 10.1 mg/dL 8.4-10.2 MAGNESIUM 2.1 mg/dL 1.6-2.6 ANION GAP 12 mmol/L 5-15 .CREAT EGFR(CKD-EPI) 75 >60 February 03, 2024 07:48 AM [facility] HEMOGLOBIN A1C Specimen Type: BLOOD Comment: [...] January 28, 2023 03:57 PM Reporting Lab: [facility] [id number] Performing Lab: [facility] [id number] HEMOGLOBIN A1C 5.3 4.0-6.0 February 03, 2024 07:48 AM [facility] LIPID PANEL,NON-FASTING Specimen Type: PLASMA No comment entered. Ordering Provider: RADHA ARMENTA Report Released Date/Time: January 28, 2023 03:57 PM Reporting Lab: [facility] [id number] Performing Lab: [facility] [phone] CHOLESTEROL 199 mg/dL <199 .HDL 48 mg/dL >50 LDL CALCULATION 125 mg/dL H <99 VLDL CALCULATION 26 mg/dL <29 NON HDL CHOLESTEROL 151 mg/dL H <129 TRIG(NON FASTING) 129 mg/dL <149 February 03, 2024 07:48 AM [facility] CBC & DIFF Specimen Type: BLOOD Comment: Automated Differential Performed Ordering Provider: RADHA ARMENTA Report Released Date/Time: January 28, 2023 03:57 PM Reporting Lab: [facility] [phone] Performing Lab: [facility] [phone] WBC 6.79 10*3/uL 4.0-11.0 RBC 4.64 10*6/uL [...] 126/85 14 [address] [facility] Social History: Smoking Status (Most current) and Tobacco Use (All prior to encounter date) This section includes the most current, and the historical, smoking and tobacco- related health factors from the [place] facility where the Encounter took place. Current Smoking Status This section includes the most current smoking, or tobacco-related health factor, from the [place] facility where the Encounter took place. Date/Time Current Smoking Status Comment Yang swanson February 02, 2024 09:51 PM [place]-TOBACCO NEVER USED [facility] Tobacco Use History This section includes a history of the smoking, or tobacco-related health factors, that were collected on or before the date of the Encounter. The data comes from the [place] facility where the Encounter took place. Date/Time Smoking Status/Tobacco Use Comment F acdeanna January 28, 2023 03:00 PM [facility]-TOBACCO NEVER USED [facility] Dec 25, 2021 11:00 AM VA-TOBACCO NEVER USED [facility] Encounter Notes: All associated encounter notes [...] She receives co-managed care with PCP in [place]. She obtains her mammograms and papsmear there [...] SOB. Denies allergies. Recently traveled to [place] for short period of time. Past medical history/Active Problems: Active problems - Computerized Problem List is the source for the followin. Snoring 2. HLD - Hyperlipidemia - Co-managed patient. Encouraged dicsusion with pt about starting statin with non-VA PCP 3. Shingles - history of prior shingles 4. Deviated nasal septum 5. Bunion 6. Exposure to potentially hazardous substance ([facility] [id number]) [facility] Documentation Initiative Allergies: Patient has [...] due 2031. Patient staffed with Dr. Kerr [facility] in 1 year with aleksey Barriga [...] STAFF PHYSICIAN Signed: 02/03/2024 10:49 GAGE BARRIGA [facility] February 03, 2024 08:16 AM INTERNAL [...] Documented: 02/03/24 08:18 Suicide Screen: C-SSRS Screening [place] Suicide Severity Rating Scale (C-SSRS) screener 1. [...] pressure ulcers, or a wound from a infertility medical assistant or Patient is bed-confined or a wheelchair-user or Patient requires assistance to transfer/change position No, Skin Screen is Negative Home Abuse/Violence Screen Is your home free of abuse and violence? Yes MOVE! Program Screen Body Mass Index (BMI)= 27.8 [place]: Collection DT Specimen Test Name Result Units Ref Range 02/03/2024 07:48 BLOOD !! HEMOGLOBIN A1C 5.3 % 4.0 - 6.0 !! Indicates COMMENTS AVAILABLE...Refer to Interim Lab Report. [place] Hgb A1C: No data available [place] Hgb A1C: No data available Point of Care Hgb A1C: POC HGB A1C____ [place] is already enrolled in the Move program. Outpatient Nutrition Screen Body Mass Index (BMI)= 27.8 [place]: Collection DT Specimen Test Name Result Units Ref Range 02/03/2024 07:48 BLOOD !! HEMOGLOBIN A1C 5.3 % 4.0 - 6.0 !! Indicates COMMENTS AVAILABLE...Refer to Interim Lab Report. [place] Hgb A1C: No data available [place] Hgb A1C: No data available Point of [...] visit? Deonna /drew/ YANCI FOOTE LPN STAFF GRID CASTER Signed: 02/03/2024 08:22 YANCI FOOTE [facility]
--- NOTE | 2024-08-03 12:00 | CRLHL7_ITS ---
For Patients: As a result of the Century Cures Act, medical imaging exams and procedure reports are released immediately into your electronic medical record. You may view this report before your referring provider. If you have questions, please contact your health care provider. PLEASE SEE ULTRASOUND-GUIDED RIGHT BREAST BIOPSY PERFORMED SAME DAY CRL:mattie phelps/Dictated by: Trung Austin MD @ 08/03/2024 12:14:00 PM (Electronically Signed)
== END 2024-08-03 11:16 | disposition home or self-care (01) ==
LOC: US 11:15
PROVIDERS: PCP Emergency Medicine; Visit Provider Emergency Medicine
DX: N63.10 Unspecified lump in the right breast, unspecified quadrant (principal); R92.8 Other abnormal and inconclusive findings on diagnostic imaging of breast
CPT/HCPCS: 19083; 77065; 88305; A4648; A4649